=== PATIENT | male | born 1980 | race Caucasian/White ===

== ENCOUNTER → 2023-04-30 06:32 | Outpatient (REF) | payer OTHER, SELFPAY | LOC: MRI 3T 06:32 | PROVIDERS: ATTENDING PHYSICIAN Family Medicine | DX: G44.52 New daily persistent headache (NDPH) (principal) | CPT/HCPCS: 70551 ==

== ENCOUNTER 2023-06-24 14:06 | Day surgery (SDC) | payer OTHER, SELFPAY ==
[2023-06-24] VITALS (9 sets, daily range): BP systolic 102–157; BP diastolic 62–101; BMI 34.6; BMI 33.8
--- NOTE | 2023-06-24 12:25 | EDRN ---
Medina MORIN in room w/pt at this time.
[2023-06-24] MEDS: DILAUDID 1 MG IV (12:42)
--- NOTE | 2023-06-24 12:59 | EDRN ---
Pt states last at 3 bites of breakfast sandwich w/ couple of sips of water this am.
[2023-06-24 13:16] LABS: % Basophils 0.8 % (0-2); % Eosinophils 2.5 % (0-6); % Immature Granulocytes 0.3 % (0-0.5); % Lymphocytes 27.1 % (20.5-51.1); % Monocytes 7.9 % (1.7-9.3); % Neutrophils 61.4 % (42.2-75.2); Absolute Basophils 0.1 10^3/uL (0-0.2); Absolute Eosinophils 0.2 10^3/uL (0-0.7); Absolute Monocytes 0.6 10^3/uL (0.1-0.6); Absolute Neutrophils 4.4 10^3/uL (1.4-6.5); Hematocrit 48.2 % (39.0-52.0); Hemoglobin 16.5 g/dL (13.0-18.0); Mean Corp Hgb Conc. 34.2 g/dL (33.0-37.0); Mean Corpuscular Hgb 30.1 pg (27.0-31.0); Nucleated Red Blood Cells % 0 % (-); Platelet Count 199 10^3/uL (130-400); Red Blood Cell Count 5.48 10^6/uL (4.70-6.10); Red Cell Dist. Width 12.1 % (11.5-14.5); White Blood Cell Count 7.2 10^3/uL (4.8-10.8)
--- NOTE | 2023-06-24 13:21 | ED.GENMED ---
History of Present Illness
General
Chief Complaint: Anal/Rectal Problem
Source: patient
Exam Limitations: none
Time Seen by Provider: 06/24/23 12:19
Nursing documentation reviewed up to this point in time: agreed with
Travel History
Have you had any contact with someone who has COVID-19?: No
Do you have any symptoms of coronavirus? Fever > 100 degrees, chills, cough, shortness of breath, sore throat, loss of taste or smell, muscle aches, or headache?: No
History of Present Illness
History of Present Illness:
43 year old male IDDM, Factor V Leiden developed rectal pain 3 weeks ago, saw Dr. Palencia last week, told to stop Xarelto hoping to get OR time soon, told he has a fissure, soonest surgery available was 07/10.
Has been off Xarelto for 2 days, pain much worse over past 2 days states he can't take the pain anymore. Using Metamucil and had 2 diarrheal stools past 2 days. Noticed rectal 'discharge' squirts of brownish yellow material past 2 days.
Denies fever/chills, n/v/abdominal pain.
Past History
Past History
ED Past Medical History: Other (Undescended teste, surgical repair as .) and Other (DVT factor V Leiden, DVT, chronically maintained on Xarelto)
ED Past Surgical History: Cholecystectomy, Orthopedic and Urological (Undescended testicle repair as ); Negative Appendectomy or Bowel resection
Social History
Tobacco: Non-smoker
Alcohol: None
Drug: None
Personal:
Living: with family
Employment: Employed
Family History
Family History: Hypertension and Other (Gallbladder disease)
Review of Systems
Review of Systems
Allergies reviewed?: Yes
All Other Systems: ROS reviewed and negative except as documented in HPI and ROS
Constitutional: Denies fever or chills
ABD/GI: Reports other (Rectal/anal pain); Denies abdominal pain, nausea, vomiting, constipated, bloody stools or black stools
: Denies dysuria, frequency, difficulty voiding or urgency
Musculoskeletal: Reports no symptoms
Skin: Reports no symptoms
Neurological: Reports no symptoms
Phy Exam
Physical Exam
Physical Exam:
GENERAL: No acute distress. A&Ox3.
CONSTITUTIONAL: Afebrile.
RESPIRATORY: Regular respirations, nonlabored, lungs clear.
CARDIOVASCULAR: Regular rate and rhythm, no murmurs, no rubs.
GI: Soft, nontender, normal BS
Rectal: Normal-appearing external anal area, no discharge
MUSCULOSKELETAL: Moves with ease. Well perfused.
SKIN: Warm, dry, pink
PSYCH: Normal mood and affect. Well kept, interactive and appropriate
NEUROLOGIC: Awake, alert and oriented. No focal neurological deficits
Course
Orders/Labs/Results
Orders:
Orders
06/24/23 Breakfast
NPO
Allow oral meds: Yes
Allow clear liquids: No
06/24/23 12:29
HYDROmorphone [Dilaudid] 1 mg IV NOW STA
06/24/23 12:41
Complete Blood Count/With Diff Urgent
Comprehensive Metabolic Panel Urgent
06/24/23 13:18
SURGICAL CONSULT Urgent
Consulting Provider: Jean Carlos Rosas
Was physician already notified: Yes
Reason for consult: rectal pain
06/24/23 13:49
PTT Urgent
Prothrombin Time Urgent
06/24/23 13:54
Admit/Transfer Patient As Directed
Co-Sign Provider:
Level of Care: Inpatient admission
Assign to:: Medical/Surgical
Physician / Group: heather paz
Diagnosis: rectal fissure
Reason for Hospitalization: rectal fissure
Expected length of stay greater than two midnights?: Yes
ELOS- Estimated Length of Stay in days: 3
I certify the patient meets the requirements for IP care: Yes
06/24/23 13:56
Code Status As Directed
Resuscitation Status: Full Code
06/24/23 15:21
0.9% Sodium Chloride 1000 ml [Nss] 1,000 ml IV 60 mls/hr
Acetaminophen [Tylenol] 650 mg PO Q4HPRN PRN
Dextrose 50%-Water [Dextrose 50% Syringe] 12.5 grams IV [id number] PRN
Glucagon [GlucaGen] 1 mg IM PRN PRN
HYDROmorphone [Dilaudid] 1 mg IV Q4HPRN PRN
Piperacillin/Tazo 3.375 Gram [Zosyn] 3.375 gram in 50 ml IV Q6H
06/24/23 15:21
Activity As Directed
Activity Level: As Tolerated
Bedside Glucose Monitoring As Directed
Frequency: AC&HS
Comment: Change to q6h if pt on TPN, tube feeding or not eating
Pneumatic Compression Sleeves As Directed
Type: Knee high
Vital Signs As Directed
Frequency: Per unit guidelines
DX Deep Vein Thrombosis Video Routine
06/24/23 16:30
Insulin Aspart Corrective Low [Novolog Flexpen-Low Resistance] See Protocol SC Q6
06/24/23 22:00
insulin glargine [Lantus U-100 Insulin] 36 unit SC HS
06/25/23 06:00
Basic Metabolic Panel IN AM
Complete Blood Count/No Diff IN AM
Glycohemoglobin (HgbA1c) IN AM
06/25/23 08:00
Atorvastatin [Lipitor] 10 mg PO DAILY
Dapagliflozin [Farxiga] 5 mg PO DAILY
06/26/23 06:00
Basic Metabolic Panel IN AM
Complete Blood Count/No Diff IN AM
06/27/23 06:00
Basic Metabolic Panel IN AM
Complete Blood Count/No Diff IN AM
06/28/23 06:00
Basic Metabolic Panel IN AM
Complete Blood Count/No Diff IN AM
06/29/23 06:00
Basic Metabolic Panel IN AM
Complete Blood Count/No Diff IN AM
Abnormal Lab Results
06/24/23
12:41
Glucose 134 H mg/dl
(70-99)
06/24/23 12:41
06/24/23 12:41
Vital Signs
Initial and Last Documented VS:
Initial Vital Signs
Temp Pulse Resp BP Pulse Ox
97.9 F 68 16 157/101 98
06/24/23 12:12 06/24/23 12:12 06/24/23 12:12 06/24/23 12:12 06/24/23 12:12
Last Documented Vital Signs
Temp Pulse Resp BP Pulse Ox
97.9 F 74 16 119/73 96
06/24/23 15:09 06/24/23 15:09 06/24/23 15:09 06/24/23 15:09 06/24/23 15:09
MDM/Problems Addressed
Differential Diagnosis Includes:
Anal fissure, abscess
MDM/Problems Addressed:
43 year old male IDDM, Factor V Leiden developed rectal pain 3 weeks ago, saw Dr. Palencia last week, told to stop Xarelto hoping to get OR time soon, told he has a fissure, soonest surgery available was 07/10.
Has been off Xarelto for 2 days, pain much worse over past 2 days states he can't take the pain anymore. Using Metamucil and had 2 diarrheal stools past 2 days. Noticed rectal 'discharge' squirts of brownish yellow material past 2 days.
Denies fever/chills, n/v/abdominal pain.
Afebrile
Dr. Rosas, Colorectal surgery notified, requests NPO, pt to be admitted to Hospital[facility] and will go to surgery later today
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
NPO for now
Hospitalist notified of admission.
1300 p.m.
CBC, CMP normal
Chronic conditions affecting care: DM and Other
*Critical Care Note
Total Time (30-74mins, 75-104mins- exclusive of procedures): Not Applicable
ED Attending Note
-
Portions of this chart may have been created with voice recognition software.� Occasional wrong word or��sound alike� substitutions may have occurred due to the inherent limitations of voice recognition software.
Discharge Plan
Departure
Patient Disposition: Admit
Date of Disposition: 06/24/23
Time of Disposition: 13:18
Admit to: Med/Surg
Presentation/result/management discussed w/ accepting MD/DO: Hospitalist
Condition: Fair
Discharge Problem:
Acute anal fissure
Interventions
Interventions:
*Risk Screen - Suicide Last Done: 06/24/23 12:46
*General Assessment Last Done: 06/24/23 12:46
*Neglect/Abuse Screening Last Done: 06/24/23 12:46
ED- Fall Risk Assessment Last Done: 06/24/23 12:46
*ED COVID-19 Vaccine History Last Done: 06/24/23 12:13
*Nursing Disposition Last Done: 06/24/23 15:06
EC-Vayzju-Nfyixpoogh Assessment Last Done: 06/24/23 12:48
ED-Skin Assessment Last Done: 06/24/23 12:46
Discharge Date and Time
Discharge Date/Time: 06/24/23 15:06
--- NOTE | 2023-06-24 13:27 | HPS.HSE ---
Addendum entered and electronically signed by Pranav Jeffries MD 06/24/23 15:07:
I saw and examined the patient.
The DOCUMENT SCANNER or PA's note was reviewed and I agree with the note.
Comment: CVS: S1-S2 normal
Chest: CTA B/L
Abdomen: Soft, NT / Bowel sounds present, Rectal deferred to colorectal surgery
Extremities: No edema, normal pulses
FACING BASTER: Non focal exam
# Rectal pain with history of rectal fissure
Patient stopped taking Xarelto 2 days ago and pain has been really bad and getting worse
Has history of constipation.
He also has seen some pale discharge
Colorectal surgery plan to take the patient to the OR today
Restart Xarelto when okay with colorectal surgeon
# Factor V Leyden-history of DVT 2021
He has been off of Xarelto for the past 2 days anticipating surgery
Patient is aware about benefits of dose of holding Xarelto
# Hyperlipidemia-continue statin
# Diabetes-takes Farxiga
Uses Lantus 36 units at night
If patient resumes a diet we can continue with the same dose if on lower diet we need to reduce the amount of Lantus
# History of migraine-as needed Imitrex
# DVT prophylaxis-restart Xarelto when okay with surgeon
# Full code
Part of this note was created using voice recognition system. Occasional wrong word or��sound alike� substitutions may have inadvertently occurred due to the inherent limitations of voice recognition software. If noted kindly bring it to my
attention for correction.
Original Note:
Family Physician
-
Family Physician: Muna Macias
Chief Complaint
-
rectal pain
History of Present Illness
43 year old with PMH for IDDM, essential HTN, factor V Leiden, HLD, migraine presented to us with rectal pain for past three weeks. stated can't sit or stand due to pain. he stopped taking Xarelto two days ago in anticipation of surgery. today he
got the schedule for surgery in [facility] 2nd week. he could not tolerate the pain, which prompted him to come the ER. stated hot flashes. Patient denied fever, chills, chest pain, short of breath. Patient denied headache, dizziness, syncopal episode.
Patient denied abdominal pain, nausea, vomiting. Stated diarrhea from MiraLAX. He was constipated 3 weeks ago from a drug which he took for migraine. Patient denied dysuria, hematuria.
Admitting for further management
Medical History
Past Medical History
Past Medical History: Reports Other
Additional Past Medical History:
Type 2 diabetes
Essential hypertension
Factor V Leyden
DVT
Hyperlipidemia
Migraine
Past Surgical History: Reports Other
Additional Past Surgical History:
Orchiopexy
Carpal tunnel release bilateral hand
Left ankle arthroscopy
Cholecystectomy
Left ankle ligament repair
Social History
Tobacco: Former Smoker
Alcohol: Occasional
Drug: None
Family History
Family History: Not pertinent
Allergies / Home Medications
Allergies reflects when Allergies were last updated in [employer].
Home Medications with original date entered in [employer]
Allergy/Medication List:
Allergies
Allergy/AdvReac Type Severity Reaction Status Date / Time
adhesive Allergy Hives Verified 06/24/23 12:14
azithromycin [From Zithromax] Allergy Unresponsiv Verified 06/24/23 12:14
e
bee venom protein (honey bee) Allergy Swelling Verified 06/24/23 12:14
coconut Allergy Throat Verified 06/24/23 12:14
swelling
latex Allergy swelling Verified 06/24/23 12:14
and rash
pseudoephedrine AdvReac double Verified 06/24/23 12:14
vision
Home Medications
rivaroxaban 20 mg tablet (Xarelto) 20 mg PO DAILY Blood clot prevention/tx 11/09/17
atorvastatin 10 mg tablet 10 mg PO DAILY High cholesterol 08/09/20
dapagliflozin propanediol 5 mg tablet (Farxiga) 5 mg PO DAILY Diabetes 08/09/20
acetaminophen 325 mg tablet (Tylenol) 650 mg PO Q4HPRN PRN mild pain 06/24/23
ibuprofen 200 mg tablet (Advil) 400 mg PO Q8HPRN PRN mild pain 06/24/23
insulin glargine 100 unit/mL subcutaneous solution (Lantus U-100 Insulin) 36 unit SC HS 06/24/23
polyethylene glycol 3350 17 gram oral powder packet (Miralax) 17 g PO DAILY 06/24/23
semaglutide (weight loss) 0.25 mg/0.5 mL subcutaneous pen injector (Wegovy) 0.25 mg SC SA 06/24/23
sumatriptan succinate 50 mg tablet (Imitrex) 0 mg PO .COMPLEX 06/24/23
Review of Systems
-
Constitutional: Reports No Symptoms
EENT: Reports No Symptoms
Respiratory: Reports No Symptoms
Cardiac: Reports No Symptoms
Abdomen/GI: Reports Other (Rectal pain)
: Reports No Symptoms
Musculoskeletal: Reports No Symptoms
Skin: Reports No Symptoms
Neurological: Reports No Symptoms
Endocrine: Reports No Symptoms
Hematologic/Lymphatic: Reports No Symptoms
Psych: Reports No Symptoms
Physical Exam
Vital Signs
Vital Signs
Temp Pulse Resp BP Pulse Ox
97.9 F 68 16 157/101 98
06/24/23 12:12 06/24/23 12:12 06/24/23 12:12 06/24/23 12:12 06/24/23 12:12
Physical Exam
General: Well Developed, Well Nourished and No Apparent Distress
HEENT: NormoCephalic, Moist mucous membranes and Atraumatic
Respiratory: Clear
Cardiac: S1/S2 and Regular Rhythm; No Murmur or Rub
GI: Soft, Non Tender, Non Distended and Normal Bowel Sounds; No Organomegaly
Rectal: Deferred by Provider
Musculoskeletal: No Clubbing, No Cyanosis and No Edema
Skin: No Rash
Neuro: AO x 3 and Nonfocal/grossly intact
Psych: Calm
Laboratory Results
-
06/24/23 12:41
Data Reviewed
-
Lab Data: Labs Reviewed by me
Impression/Plan
-
#rectal fissure
-Maintain n.p.o.
-Gentle hydration
-IV Zosyn
-colorectal surgery consulted
#factor V Leiden
# History of DVT
-Hold Xarelto
# Hyperlipidemia
-Statin
#IDDM
-sliding scale
-daily BGM
-Sunil Wasserman 36u hs continued
# History of migraine headache
-On Imitrex
# DVT prophylaxis
-SCD
# CODE STATUS
-Full code
--- NOTE | 2023-06-24 13:31 | EDRN ---
Lachelle aguilar in performing a med rec at this time.
[2023-06-24 13:33] LABS: ALT (SGPT) 36 U/L (0-50); AST (SGOT) 28 U/L (17-59); Albumin 4.5 g/dl (3.5-5.0); Alkaline Phosphatase 80 U/L (38-126); Blood Urea Nitrogen 16 mg/dl (9-20); Calcium 9.7 mg/dl (8.4-10.2); Carbon Dioxide 25 mmol/L (22-30); Chloride 106 mmol/L (98-107); Estimated Creatinine Clearance > 125 ml/min; Glucose 134 mg/dl (70-99); Potassium 4.8 mmol/L (3.5-5.1); Sodium 135 mmol/L (135-145); Total Bilirubin 0.5 mg/dl (0.2-1.3); Total Protein 7.2 g/dl (6.3-8.2); eGFR > 60.00
--- NOTE | 2023-06-24 13:36 | CON.CRS ---
Consultation
-
Date/Time Consultation Requested: 06/24/2023, 1300
Date/Time Consultation Performed: 06/24/2023, 1400
Requesting Provider: Bre Light NP
Performing Provider: Jean Carlos Rosas MD
Reason for Consultation: Anal fissure
Medical History
-
Chief Complaint: Anal pain
History of Present Illness:
43-year-old male, known patient of Dr. Palencia, presents to the ER due to excruciating anal pain. The patient was seen in the office on 06/14/2023 as a new patient. He is complaining of anal bleeding and pain. Upon exam, the patient had spasm on
his digital rectal exam and diagnosed with a probable anal fissure. He was prescribed nifedipine and lidocaine ointment. Despite this, the pain has been unrelenting. He has been on Xarelto for DVT and also has a history of factor V Leiden
deficiency. He has held his Xarelto for the past 2 days. He was scheduled for an exam under anesthesia with Dr. Palencia on 07/11/2023. Due to the pain with now yellow/brownish discharge, the patient came to the ER. The patient states he has noted
some blood. He has been having loose stools due to starting Miralax. His WBC is 7.2. His vitals are normal. We have been consulted for further surgical opinion.
Past Medical History
Past Medical History: HTN, Hypercholesterolemia and Other (Factor V Leiden, history of DVT, obesity, type 2 diabetes)
Past Surgical History: Cholecystectomy and Other (Undescended testicle repair as infant)
Social History
Tobacco: Non-Smoker
Alcohol: None
Drug: None
Family History
Family History: Reviewed & Not Pertinent
Allergies / Home Medications
Allergy/AdvReac Type Severity Reaction Status Date / Time
adhesive Allergy Hives Verified 06/24/23 12:14
azithromycin [From Zithromax] Allergy Unresponsiv Verified 06/24/23 12:14
e
bee venom protein (honey bee) Allergy Swelling Verified 06/24/23 12:14
coconut Allergy Throat Verified 06/24/23 12:14
swelling
latex Allergy swelling Verified 06/24/23 12:14
and rash
pseudoephedrine AdvReac double Verified 06/24/23 12:14
vision
Medication Instructions Recorded Confirmed Type
rivaroxaban 20 mg tablet (Xarelto) 20 mg PO DAILY Blood clot 11/09/17 05/17/22 History
prevention/tx
atorvastatin 10 mg tablet 10 mg PO DAILY High cholesterol 08/09/20 05/17/22 History
dapagliflozin propanediol 5 mg 5 mg PO DAILY Diabetes 08/09/20 05/17/22 History
tablet (Farxiga)
insulin detemir U-100 100 unit/mL 48 units SC HS Diabetes 08/09/20 05/17/22 History
subcutaneous solution (Levemir
U-100 Insulin)
lisinopril 20 mg tablet 20 mg PO DAILY Blood pressure 08/09/20 05/17/22 History
Review of Systems
-
History Source: Patient
Abdomen/GI: Bloody Stools and Other (Anal pain)
A 10 point review of systems was completed, and was negative except as per HPI.
Physical Exam
Vital Signs
Temp 97.9 F 06/24/23 12:12
Pulse 68 06/24/23 12:12
Resp Rate 16 06/24/23 12:12
Blood pressure 157/101 06/24/23 12:12
SaO2 98 06/24/23 12:12
06/23/23 06/24/23 06/25/23
06:59 06:59 06:59
Actual Weight 119.1 kg
Body Mass Index (BMI) 34.6
Lab Results / Allergies
06/24/23 12:41
06/24/23 12:41
WBC 7.2 10^3/uL (4.8-10.8) 06/24/23 12:41
Hgb 16.5 g/dL (13.0-18.0) 06/24/23 12:41
Hct 48.2 % (39.0-52.0) 06/24/23 12:41
Plt Count 199 10^3/uL (130-400) 06/24/23 12:41
Abs Immat Gran (auto) 0.0 10^3/uL (0-0.05) 06/24/23 12:41
Neutrophils % 61.4 % (42.2-75.2) 06/24/23 12:41
Allergy/AdvReac Type Severity Reaction Status Date / Time
adhesive Allergy Hives Verified 06/24/23 12:14
azithromycin [From Zithromax] Allergy Unresponsiv Verified 06/24/23 12:14
e
bee venom protein (honey bee) Allergy Swelling Verified 06/24/23 12:14
coconut Allergy Throat Verified 06/24/23 12:14
swelling
latex Allergy swelling Verified 06/24/23 12:14
and rash
pseudoephedrine AdvReac double Verified 06/24/23 12:14
vision
Physical Exam
General: Well Developed, Well Nourished and No Apparent Distress
Rectal: Other (deferred per patient)
Skin: Warm and Dry
Neuro: AO x 3
Data Reviewed
-
Labs: Labs Reviewed by me and Discussed with Physician
Old Records: Reviewed
Assessment / Plan
-
Assessment: 53-year-old male with a history of DVT on Xarelto, and known anal fissure, presents to the ER complaining of unrelenting anal pain
Plan:
1. Given the amount of pain despite optimization with medication, we will take the patient to the operating room this afternoon for exam under anesthesia and possible sphincterotomy.
2. Remain n.p.o. for the OR.
3. Pain control.
4. Diabetes and hypertension management per hospitalist.
5. Continue to hold Xarelto.
--- NOTE | 2023-06-24 13:36 | EDRN ---
Dr. Jeffries in room w/pt at this time.
[2023-06-24 14:30] LABS: INR 0.99; PT 12.9 Sec (11.4-14.6)
[2023-06-24 14:31] LABS: APTT 29.2 Sec (23.4-35.0)
[2023-06-24] MEDS: NSS 1000 IV (15:53)
[2023-06-24] MEDS: TYLENOL 650 MG PO (15:54)
[2023-06-24] MEDS: ZOSYN 50 IV (15:54)
--- NOTE | 2023-06-24 18:40 | PTCARENOTE ---
Pt. arrived from ED to bed 337-1 at 1530. Pt. walked from stretcher to bed. Pt. oriented to room. Pt. has continuos blood glucose monitor on, no insulin given through it. Pt. oriented to unit, taken to OR at 1630.
--- NOTE | 2023-06-24 19:19 | W.IMMPOSTOP ---
Addendum entered and electronically signed by Jean Carlos Rosas MD 06/24/23 19:50:
updated via phone
Original Note:
Surgical Immed Post Op Note
-
Primary Surgeon: Jean Carlos Rosas MD
Assisting Surgeon: None
Pre-op Diagnosis: Anal fissure
Post-op Diagnosis: Posterior midline anal fissure
Procedure Performed: Lateral internal tailored sphincterotomy
Anesthesia Type: MAC with local
Specimen / Cultures: None
Estimated Blood Loss: 5 mL
Complications: None
Operative Findings: Small, partially healed posterior midline fissure, about 7 mm in length and 3 mm in width, no exposed sphincter; internal sphincter was hypertonic; performed 1.5 cm right curvilinear incision overlying the intersphincteric
groove; performed a tailored sphincterotomy, extending about 1 cm proximally from the intersphincteric groove; loosely reapproximated the incision with two 2-0 Vicryl
--- NOTE | 2023-06-24 19:28 | OR.RPT ---
Operative Report
Operative Report
DATE OF OPERATION: 06/24/2023
SURGEON: Jean Carlos Rosas MD
PREOPERATIVE DIAGNOSIS: Anal fissure
POSTOPERATIVE DIAGNOSIS: Posterior midline anal fissure
OPERATION: Right lateral internal tailored sphincterotomy, bilateral pudendal nerve block
ASSISTANTS:
1. None
ANESTHESIA: MAC w/ local
ESTIMATED BLOOD LOSS: 5 mL
FINDINGS:
1. Partially healed posterior midline fissure about 7 mm in length and 3 mm wide and hypertonic internal sphincter
2. Small internal hemorrhoids not irritated or bleeding; no evidence of perianal infection
3. Tailored the internal sphicterotomy to the length of the fissure
SPECIMENS:
1. None
DRAINS: None
COMPLICATIONS: No immediate complications.
INDICATIONS: The patient is a 43-year-old male who was seen by my partner, Dr. Palencia, in the office and was diagnosed with an anal fissure; however, the patient was unable to tolerate anoscopy so the diagnosis was presumed based on clinical story
and external exam. A trial of nifedipine with lidocaine cream was initiated, but the pain continued to be severe. The patient was booked for surgery in 2 to 3 weeks. However, the pain was not tolerable and the patient presented to the ED.
Therefore, I recommended proceeding with an exam under anesthesia and possible sphincterotomy depending on the pathology noted. The operation was discussed with the patient in detail, including the risks, benefits and alternatives. Risks described
included, but not limited to, bleeding, infection, urinary retention, incontinence to stool or flatus, recurrence of anal fissure, possibility of another pathology causing the pain and anesthetic risks. The patient understood and agreed to proceed.
PROCEDURE IN DETAIL: The patient was taken to the operating room and placed on the operating table in prone position. Sequential compression devices were placed bilaterally. Sedation was commenced without complication. Two seat belts were secured
around the legs and upper back. The buttocks were taped apart. The perineum was shaved, prepped and draped in the usual fashion. A time-out was then performed verifying the correct patient, procedure, operative site, positioning, and special
equipment.
Local anesthesia used was a mixture of 60 mL of 0.25% Marcaine without epinephrine (with epinephrine was on backorder) and 0.6 mg of dexamethasone. 40 mL was injected perianally at the beginning of the case. The anorectal exam was performed
assessing all four quadrants of the anal canal using Hill-Elizalde retractors in progressively increasing size. The patient was noted to have a partially healed posterior midline anal fissure, with rolled edges and no exposed sphincter. The
internal sphincter tone was elevated and on tension with the medium Hill-Elizalde anoscope despite an adequate perianal block. There was also noted to be small internal hemorrhoids circumferentially that were not irritated or bleeding, therefore
unlikely to be the source of pain. There was no areas of erythema or fluctuance, so no evidence of perianal infection. No other masses were noted. The most likely cause of the anal pain was this posterior midline fissure.
In the setting of hypertonic sphincter tone and anal fissure, I elected to proceed with a right lateral internal sphincterotomy. I made a 2 cm curvilinear incision along the intersphincteric groove with Bovie electrocautery in the right lateral
position. Hemostasis was achieved. I dissected between the mucosa and the internal sphincter and in the intersphincteric groove using a hemostat clamp to isolate the internal sphincter. I elected to tailor the sphincterotomy to equal the length of
the anal fissure in order to decrease the risk of fecal incontinence. Using the hemostat clamp, I isolated 1 cm of internal sphincter muscle and divided it using Bovie electrocautery. Hemostasis was achieved. The curvilinear incision was then
reapproximated with two interrupted 2-0 Vicryl stitches leaving space in between for drainage in order to decrease the risk of infection. The anal canal was irrigated and hemostasis confirmed from both the surgical site and the fissure. At the end
of the case, the remaining 20 mL of local were injected, 10mL bilaterally for a pudendal nerve block and 10mL around the surgical site.
At this point, the procedure was complete. All needle, sponge and instrument counts were correct. The patient tolerated the procedure well and was transferred to the recovery room in stable condition with gauze and tape over the anus.
DICTATED BY: Jean Carlos Rosas MD
[2023-06-24 19:32] LABS: Glucose - Point of Care 103 mg/dl (70-99)
[2023-06-24 22:08] LABS: Glucose - Point of Care 103 mg/dl (70-99)
[2023-06-24] MEDS: LANTUS 0.130000000000000004 UNITS SC (22:40)
[2023-06-25] MEDS: TYLENOL 1000 MG PO ×3 (00:24→12:27)
[2023-06-25] MEDS: TORADOL 15 MG IV ×3 (00:24→12:27)
[2023-06-25 05:48] LABS: Hematocrit 46.1 % (39.0-52.0); Mean Corp Hgb Conc. 34.7 g/dL (33.0-37.0); Mean Corpuscular Hgb 30.1 pg (27.0-31.0); Mean Corpuscular Volume 86.7 fL (80.0-94.0); Platelet Count 199 10^3/uL (130-400); Red Blood Cell Count 5.32 10^6/uL (4.70-6.10); Red Cell Dist. Width 12.2 % (11.5-14.5); White Blood Cell Count 7.9 10^3/uL (4.8-10.8)
[2023-06-25 06:03] LABS: Blood Urea Nitrogen 18 mg/dl (9-20); Calcium 9.1 mg/dl (8.4-10.2); Carbon Dioxide 23 mmol/L (22-30); Chloride 107 mmol/L (98-107); Estimated Creatinine Clearance > 125 ml/min; Glucose 139 mg/dl (70-99); Potassium 4.7 mmol/L (3.5-5.1); Sodium 135 mmol/L (135-145); eGFR > 60.00
[2023-06-25 07:22] VITALS: BP 120/72
[2023-06-25 07:33] LABS: Glucose - Point of Care 111 mg/dl (70-99)
[2023-06-25] MEDS: FARXIGA 5 MG PO (08:37)
[2023-06-25] MEDS: LIPITOR 10 MG PO (08:37)
[2023-06-25 08:43] LABS: Glycohemoglobin (HgbA1c) 8.2 % (4.0-5.6)
--- NOTE | 2023-06-25 11:46 | W.PN.CRS1 ---
Addendum entered and electronically signed by Celestine Palencia MD 06/25/23 12:40:
I saw and examined the patient.
The PA's note was reviewed and I agree with the note.
Comment:
Seen in am with PA.
Comfortable.
Vitals and labs fine.
anal area without erythema
Discharge per hospitalist.
Original Note:
Today's Communication / Plan
-
Okay for discharge from our perspective
Assessment/Plan
-
Postop day 1 sphincterotomy for anal fissure
1. Labs and vitals normal.
2. Tolerated diet.
3. Incision and wound look good, dressing removed. No skin erythema noted.
4. Pain is well-controlled.
5. Okay for discharge from our standpoint to follow-up in the office with Dr. Rosas in 4 to 6 weeks.
Subjective Data
Procedure
06/24/2023-sphincterotomy for anal fissure
Subjective Data
Date of Service: June 25, 2023
Patient states he feels much better. His pain is well-controlled. He has flatus. He is urinating without difficulty.
Objective Data
-
Vital Signs
Temp Pulse Resp BP Pulse Ox
97.6 F 76 17 120/72 94
06/25/23 07:22 06/25/23 07:22 06/25/23 07:22 06/25/23 07:22 06/25/23 07:22
Intake & Output
06/24/23 06/25/23 06/26/23
06:59 06:59 06:59
Intake Total 200 / 200 600 / 600
Output Total 426 / 426
Balance 200 / 200 174 / 174
Intake:
Oral fluids 600 / 600
IV fluids (Total) 200 / 200
Normosal 200 / 200
Output:
Urine, Voided 426 / 426
Other:
Number of approximated MODERATE 1
amounts of urine
Lab Results
06/25/23 05:14
06/25/23 05:14
Physical Exam
-
General: No Acute Distress and AOx3
Abdomen: Soft, Non Distended and Non Tender
Wound: No Signs of Infection, Dressing Changed (Removed) and No Skin Erythema
--- NOTE | 2023-06-25 11:59 | CM ---
Met with pt at bedside
Pt lives with his and children in a 2 story home
Independent, working, drives
Denies DME in home
Denies past snf/HH
Has ride at d/c
PCP - Muna Macias
Pharm - [facility]
Plan - anticipate home no needs
[2023-06-25 12:11] LABS: Glucose - Point of Care 132 mg/dl (70-99)
--- NOTE | 2023-06-25 14:55 | W.PN.HOSP.TC ---
Today's Communication/Plan
-
Discharge
Assessment / Plan
Assessment / Plan
43 y/o with anal pain
Feels much much better and he feels ready to go home
Cardiovascular system S1-S2 appreciated
Chest clear to auscultation
Abdomen soft and nontender
# Anal fissure status post sphincterotomy
Pain control with tramadol
MiraLAX
Okay to restart Xarelto tonight per discussion with colorectal surgery
Sitz bath
# Factor V Leyden-history of DVT 2021
He has been off of Xarelto for the past 2 days anticipating surgery
restart Xarelto
# Hyperlipidemia-continue statin
# Diabetes-takes Farxiga
Uses Lantus 36 units at night
Can resume the dose as he will be back on his diet tonight
# History of migraine-as needed Imitrex
# DVT prophylaxis-restart Xarelto
# Full code
D/W RN
D/W Colorectal
D/W Physician advisor.
Anticipated Discharge: Today
Subjective/Interval History
-
Date of Service: June 25, 2023
Objective Data
-
Labs:
Laboratory Results
06/25/23
05:14
WBC 7.9
Hgb 16.0
Hct 46.1
Plt Count 199
Sodium 135
Potassium 4.7
Chloride 107
Carbon Dioxide 23
BUN 18
Creatinine 0.8
Glucose 139 H
Calcium 9.1
Vital Signs:
Vital Signs
Temp Pulse Resp BP Pulse Ox
97.6 F 76 17 120/72 94
06/25/23 07:22 06/25/23 07:22 06/25/23 07:22 06/25/23 07:22 03/26/24 07:22
I&O
06/24/23 06/25/23 06/26/23
06:59 06:59 06:59
Intake Total 200 / 200 600 / 600
Output Total 426 / 426
Balance 200 / 200 174 / 174
--- NOTE | 2023-06-25 15:05 | W.DS.TRANS ---
Addendum entered and electronically signed by Pranav Jeffries MD 06/25/23 17:00:
Dictation- [id number]
Original Note:
DC Summary - [employer]
-
Discharge Instructions:
Discharge Diagnosis/Procedures Returns patient is status post enterotomy,
factor V Leyden, hyperlipidemia, diabetes,
history of migraine
Diet As tolerated
Activity No strenuous activity
Driving Restrictions No driving for 24 hours
Bathing Restrictions None
Wound Care Sitz baths twice a day, 10 minutes, warm water,
for 7 days starting tonight. Tramadol can make
you constipated.
Instructions: Anal Fissure (DC)
How to Do a Sitz Bath
Stand-Alone Forms:
Changes to Home Medications: Yes
Discharge Medications:
DC Medications w/original date entered in [facility]
rivaroxaban 20 mg tablet (Xarelto) 20 mg PO DAILY Blood clot prevention/tx 11/09/17
atorvastatin 10 mg tablet 10 mg PO DAILY High cholesterol 08/09/20
dapagliflozin propanediol 5 mg tablet (Farxiga) 5 mg PO DAILY Diabetes 08/09/20
acetaminophen 325 mg tablet (Tylenol) 650 mg PO Q4HPRN PRN mild pain 06/24/23
insulin glargine 100 unit/mL subcutaneous solution (Lantus U-100 Insulin) 36 unit SC HS diabetes 06/24/23
polyethylene glycol 3350 17 gram oral powder packet (Miralax) 17 g PO DAILY constipation 06/24/23
semaglutide (weight loss) 0.25 mg/0.5 mL subcutaneous pen injector (Wegovy) 0.25 mg SC SA diabetes 06/24/23
sumatriptan succinate 50 mg tablet (Imitrex) 0 mg PO .COMPLEX migraine 06/24/23
dibucaine 1 % rectal ointment 1 applic NV TID PRN rectal discomfort #56 grams 06/25/23
tramadol 50 mg tablet 50 mg PO Q6H PRN Pain #20 tabs 06/25/23
Home Medication Changes
new
dibucaine 1 % rectal ointment 1 applic NV TID PRN rectal discomfort #56 grams 06/25/23
tramadol 50 mg tablet 50 mg PO Q6H PRN Pain #20 tabs 06/25/23
Pending Results: No
[2023-06-25 15:16] VITALS: BP 126/77
[2023-06-25] MEDS: MIRALAX 17 GRAMS PO (15:26)
== END 2023-06-25 16:45 | disposition home or self-care (01) ==
LOC: PACU 14:06
PROVIDERS: Registered Nurse; ATTENDING PHYSICIAN Hospitalist; CONSULT PHYSICIAN Surgery; EMERGENCY PHYSICIAN Emergency Medicine; FAMILY PHYSICIAN Family Medicine
DX: K60.0 Acute anal fissure (principal); K64.8 Other hemorrhoids; D68.51 Activated protein C resistance; E11.9 Type 2 diabetes mellitus without complications; Z79.4 Long term (current) use of insulin; Z86.718 Personal history of other venous thrombosis and embolism
CPT/HCPCS: 46080; 80048; 80053; 82962; 83036; 85025; 85027; 85610; 85730; 96374; 99285

== ENCOUNTER 2023-07-01 00:30 | Observation (INO) | payer OTHER, SELFPAY ==
[2023-06-30 16:48] VITALS: BP 155/99
--- NOTE | 2023-06-30 19:35 | ED.GENMED ---
History of Present Illness
General
Chief Complaint: Post Operative Problem(s)
Source: patient
Exam Limitations: none
Time Seen by Provider: 06/30/23 19:16
Travel History
Have you had any contact with someone who has COVID-19?: No
Do you have any symptoms of coronavirus? Fever > 100 degrees, chills, cough, shortness of breath, sore throat, loss of taste or smell, muscle aches, or headache?: No
History of Present Illness
History of Present Illness:
This is a 43 year old male that comes in with c/o rectal pain. Staes that he has pain in the rectal area that goes up to his groin. States that he started with fever and bleeding yesterday. States that his temp goes up and down. States that at home
he was 100.5, States that he has had chills, nausea and has not been able to move his bowels. States that he was going but now is unable. States that he feels dizzy on and off. Denies any chest pain, SOB, vomiting, diarrhea, abd pain, headache,
urinary burning.
Past History
Past History
ED Past Medical History: Asthma, IDDM, Other (PNA, DVT, Renal calculus, Factor V leiden, ) and Other (DVT factor V Leiden, DVT, chronically maintained on Xarelto)
ED Past Surgical History: Cholecystectomy, Orthopedic (Left foot surgery, Left ankle surgery, Right carpal tunnel Left wrist/hand surery. ), Urological (Undescended testicle repair as infant) and Other (Anal fissure repair ); Negative Appendectomy
or Bowel resection
Social History
Tobacco: Former smoker
Alcohol: None
Drug: None
Personal:
Living: with family
Employment: Employed
Family History
Family History: Hypertension and Other (Gallbladder disease)
Review of Systems
Review of Systems
All Other Systems: ROS reviewed and negative except as documented in HPI and ROS
Constitutional: Reports fever and chills
EENT: Reports no symptoms
Respiratory: Reports no symptoms; Denies cough or trouble breathing
Cardiac: Reports no symptoms; Denies chest pain
ABD/GI: Reports nausea and other (Rectal pain and bleeding); Denies abdominal pain, vomiting or diarrhea
: Reports no symptoms; Denies dysuria, frequency or urgency
Musculoskeletal: Reports no symptoms
Skin: Reports no symptoms
Neurological: Reports dizzy (on and off); Denies headache
Psychiatric: Reports no symptoms
Phy Exam
General Physical Exam
General Presentation: mild distress
General age: appears stated age
General Skin: warm and dry
General Habitus: normal
General Mental: alert
General Hydration: appears well hydrated
ENT Exam
ENT Exam: TM's normal, pharynx normal and neck supple
Eye Exam
Eye Exam: EOMI
Cardiovascular Exam
Cardiovascular Exam: regular rate/rhythm, no edema, no murmur and normal peripheral pulses
Pulmonary Exam
Pulmonary Exam: lungs clear, no respiratory distress, no rales, chest non tender, no crackles, no rhonchi, no wheezing and no cough
Gastrointestinal Exam
Gastrointestinal Exam: normal bowel sounds, non tender, soft, no organomegaly, no pulsatile mass, non distended and other (Bright red blood noted in rectal area. )
Musculoskeletal Exam
Musculoskeletal Exam: full ROM and no edema
Skin Exam
Skin Exam: normal color, warm/dry, no rash and no petechia
Psychiatric Exam
Psychiatric Exam: normal mood/affect
Course
Orders/Labs/Results
Orders:
Orders
06/30/23 18:58
Cardiac Monitoring- Treatment ONCE
IV Insert/Care/Rem.- Treatment PRN
O2 Therapy [RESP] Urgent
Titrate/Wean O2 to maintain O2 sat greater than (%): 93
Special Instructions: MAINTAIN CONTINOUS O2 SATS > OR = 93%
Pulse Ox/spot Check [RESP] Urgent
Quantity: 1
Special Instructions: ON ROOM AIR
06/30/23 19:30
CT Pelvis With Iv Contrast Urgent
Comment: Fissure repair on Saturday,
Reason For Exam: Rectal pain, bleeding
0.9% Sodium Chloride 1000 ml [Nss] 1,000 ml IV BOLUS
Acetaminophen [Tylenol] 1,000 mg PO NOW STA
HYDROmorphone [Dilaudid] 1 mg IV NOW STA
Ondansetron Injectable [Zofran] 4 mg IV NOW STA
06/30/23 20:28
Type+Screen Urgent
Complete Blood Count/With Diff Urgent
Comprehensive Metabolic Panel Urgent
Lactic Acid Q4H
Comment: CANCEL 2nd LACTIC ACID IF 1st LACTIC ACID IS LESS THAN 2
PTT Urgent
Prothrombin Time Urgent
Blood Culture Q30M
DWIGTH Source: Blood/Venous
Specimen Description:
06/30/23 21:15
COVID-19 Antigen Urgent
Source: Nasal Swab
Influenza A+B Rapid Molecular Urgent
DWIGHT Source: Nasal Swab
Specimen Description:
06/30/23 21:16
Blood Culture Q30M
DWIGHT Source: Blood/Venous
Specimen Description:
06/30/23 21:36
HYDROmorphone [Dilaudid] 1 mg .ROUTE .STK-MED ONE
Ondansetron Injectable [Zofran] 4 mg .ROUTE .STK-MED ONE
06/30/23 21:37
Acetaminophen [Tylenol] 1,000 mg .ROUTE .STK-MED ONE
Abnormal Lab Results
06/30/23
20:28
Absolute Neuts (auto) 7.7 H 10^3/uL
(1.4-6.5)
Absolute Monos (auto) 0.7 H 10^3/uL
(0.1-0.6)
Lymphocytes % 19.2 L %
(20.5-51.1)
PT 15.2 H Sec
(11.4-14.6)
Sodium 134 L mmol/L
(135-145)
Glucose 117 H mg/dl
(70-99)
06/30/23 20:28
06/30/23 20:28
Glucose nonfasting. Lactic acid normal at 1.4, PT 15.2 with INR 1.22, PTT 30.6, COVID and influenza negative.
Vital Signs
Initial and Last Documented VS:
Initial Vital Signs
Temp Pulse Resp BP Pulse Ox
97.7 F 102 22 155/99 96
06/30/23 16:48 06/30/23 16:48 06/30/23 16:48 06/30/23 16:48 06/30/23 16:48
Last Documented Vital Signs
Temp Pulse Resp BP Pulse Ox
99.5 F 108 28 133/72 96
06/30/23 21:18 06/30/23 22:40 06/30/23 22:40 06/30/23 22:40 06/30/23 16:48
MDM/Problems Addressed
Differential Diagnosis Includes:
Post surgical abscess, Tear in fissure repair,
Chronic conditions affecting care:
This is a 43 year old male that comes in with c/o rectal pain and bleeding. States that he started yesterday with fever and rectal pain. States that he has bright red blood from his rectum that is just oozing out. States that his temp has been up
and down
Will get labs. CT pelvis and medicate for pain.
Back into see patient. Explained that his blood work is normal along with his Lactic acid and his CT is negative for abscess but there is a fullness in the rectal area. Discussed with Dr. Angulo and will have the House ENGINEERING TECH admit patient to Colorectal
service. Will have patient stay on a clear liquid diet, Hold his Xarelto and Dilaudid IV PRN. They will see patient in the morning.
Into see patient and explained that he would be admitted and seen by Colorectal tomorrow.
Chronic conditions affecting care: DM
Acute Exacerbation and/or Progression of Chronic Illness:
Post surgical complication
*Radiology
Radiology exam reviewed: radiology read reviewed (CT- Fullness involving the perianal soft tissues in this patient with histor of recent surgery for anal fissure repair. There is no evidence for abscess. )
*Pulse Oximetry
Patient hypoxic: no
*EKG
Interpreted by ED Provider?: NA
Rate: EKG- N/A
*Qc Scientist Interpretation
Rate: Qc Scientist- N/A
*Critical Care Note
Total Time (30-74mins, 75-104mins- exclusive of procedures): Not Applicable
ED Attending Note
-
Portions of this chart may have been created with voice recognition software.� Occasional wrong word or��sound alike� substitutions may have occurred due to the inherent limitations of voice recognition software.
Discharge Plan
Departure
Patient Disposition: Admit
Date of Disposition: 06/30/23
Time of Disposition: 23:23
Admit to: Med/Surg
Presentation/result/management discussed w/ accepting MD/DO: Dr. Angulo
Patient with high blood pressure during this ER visit?: Yes
Condition: Good
Covid-19: Negative COVID-19
Discharge Problem:
Postop rectal pain, Bright red rectal bleeding
Prescriptions:
No Action
Xarelto 20 MG tablet
20 mg PO DAILY
atorvastatin 10 MG tablet
10 mg PO DAILY
dapagliflozin propanediol [Farxiga] 5 MG tablet
5 mg PO DAILY
insulin glargine [Lantus U-100 Insulin] 100 unit/mL Solution
36 unit SC HS
polyethylene glycol 3350 [Miralax] 17 gram Powder In Packet
17 g PO DAILY
dibucaine 1 % ointment
1 applic [place] TID PRN (Reason: rectal discomfort) Qty: 56 0RF
tramadol 50 mg tablet
50 mg PO Q6H PRN (Reason: Pain) Qty: 20 0RF
Wegovy 0.5 mg/0.5 mL Pen Injector
0.5 mg SC SA
Referrals:
Muna Macias MD [Family Provider] -
Interventions
Interventions:
*Risk Screen - Suicide Last Done: 06/30/23 16:48
*General Assessment Last Done: 06/30/23 16:48
*Neglect/Abuse Screening Last Done: 06/30/23 16:48
ED- Fall Risk Assessment Last Done: 06/30/23 21:20
*ED COVID-19 Vaccine History Last Done: 06/30/23 21:01
ED-Skin Assessment Last Done: 06/30/23 21:20
Discharge Date and Time
Print Language: DANISH
[2023-06-30] MEDS: NSS 1000 IV (20:17)
[2023-06-30 20:39] LABS: % Basophils 0.5 % (0-2); % Eosinophils 1.1 % (0-6); % Immature Granulocytes 0.3 % (0-0.5); % Lymphocytes 19.2 % (20.5-51.1); % Monocytes 6.9 % (1.7-9.3); Absolute Basophils 0.1 10^3/uL (0-0.2); Absolute Eosinophils 0.1 10^3/uL (0-0.7); Absolute Monocytes 0.7 10^3/uL (0.1-0.6); Absolute Neutrophils 7.7 10^3/uL (1.4-6.5); Mean Corp Hgb Conc. 35.4 g/dL (33.0-37.0); Mean Corpuscular Hgb 30.6 pg (27.0-31.0); Mean Corpuscular Volume 86.3 fL (80.0-94.0); Mean Platelet Volume 8.9 fL (7.4-10.4); Nucleated Red Blood Cells % 0 % (-); Platelet Count 202 10^3/uL (130-400); Red Blood Cell Count 5.56 10^6/uL (4.70-6.10); Red Cell Dist. Width 12.2 % (11.5-14.5); White Blood Cell Count 10.6 10^3/uL (4.8-10.8)
[2023-06-30 20:47] LABS: Lactic Acid 1.4 mmol/L (0.7-2.0)
[2023-06-30 20:51] LABS: ALT (SGPT) 37 U/L (0-50); AST (SGOT) 25 U/L (17-59); Albumin 4.5 g/dl (3.5-5.0); Alkaline Phosphatase 85 U/L (38-126); Blood Urea Nitrogen 19 mg/dl (9-20); Calcium 9.5 mg/dl (8.4-10.2); Carbon Dioxide 27 mmol/L (22-30); Chloride 100 mmol/L (98-107); Glucose 117 mg/dl (70-99); Potassium 4.5 mmol/L (3.5-5.1); Sodium 134 mmol/L (135-145); Total Bilirubin 0.7 mg/dl (0.2-1.3); Total Protein 7.5 g/dl (6.3-8.2); eGFR > 60.00
[2023-06-30 20:52] LABS: APTT 30.6 Sec (23.4-35.0); INR 1.22; PT 15.2 Sec (11.4-14.6)
[2023-06-30 21:03] VITALS: BMI 32.3
[2023-06-30 21:18] VITALS: BP 126/76
[2023-06-30 21:41] LABS: COVID-19 Antigen Negative (Negative)
[2023-06-30] MEDS: ZOFRAN 4 MG IV (21:41)
[2023-06-30] MEDS: TYLENOL 1000 MG PO (21:41)
[2023-06-30] MEDS: DILAUDID 1 MG IV ×2 (21:44→23:40)
[2023-06-30 21:53] VITALS: BP 134/75
[2023-06-30 22:40] VITALS: BP 133/72
[2023-06-30 23:39] VITALS: BP 98/69
[2023-07-01] VITALS (9 sets, daily range): BP systolic 14–146; BP diastolic 60–98; BMI 33.8
--- NOTE | 2023-07-01 00:38 | HPS.HSE ---
Family Physician
-
Family Physician: Muna Macias
Chief Complaint
-
rectal pain, bleeding and temp
History of Present Illness
This is a 43 year old male hx of factor V, DVT, diabetes, migraines and HLD that comes in with c/o rectal pain. Pt was discharged 06/25/23 s/p sphinterotomy by Dr Rosas for anal fissure. States that pain starts in the rectal area and goes up to his
groin. Pt states he felt good on day of discharge then by afternoon of same day he felt 'crappy.' States that he started with fever (100.5) and bleeding yesterday. States that his temp goes up and down. States that at home he was 100.5, States that
he has had chills, nausea. PT states he has moved his bowels since surgery. Taking miralax daily. Had BM while in ED and he states saw blood mixed with BM. States that he feels dizzy on and off. Denies any chest pain, SOB, vomiting, diarrhea, abd
pain, headache, urinary burning. Last dose of xarelto thursday 06/[address]: IMPRESSION: Fullness involving the perianal soft tissues in this patient with history of recent surgery for anal fissure repair. There is no evidence for abscess.
06/24/23 Operative Findings: Small, partially healed posterior midline fissure, about 7 mm in length and 3 mm in width, no exposed sphincter; internal sphincter was hypertonic; performed 1.5 cm right curvilinear incision overlying the
intersphincteric groove; performed a tailored sphincterotomy, extending about 1 cm proximally from the intersphincteric groove; loosely reapproximated the incision with two 2-0 Vicryl
Medical History
Past Medical History
Past Medical History: Reports Hypercholesterolemia, NIDDM and Other
Additional Past Medical History:
Type 2 diabetes
Essential hypertension
Factor V Leyden
DVT
Hyperlipidemia
Migraine
Past Surgical History: Reports Other
Additional Past Surgical History:
Orchiopexy
Carpal tunnel release bilateral hand
Left ankle arthroscopy
Cholecystectomy
Left ankle ligament repair
Social History
Tobacco: Former Smoker
Alcohol: Occasional
Drug: None
Personal:
Living: With Family
Employment: Employed
Family History
Family History: Not pertinent
Allergies / Home Medications
Allergies reflects when Allergies were last updated in [facility].
Home Medications with original date entered in [facility]
Allergy/Medication List:
Allergies
Allergy/AdvReac Type Severity Reaction Status Date / Time
adhesive Allergy Hives Verified 06/24/23 12:14
azithromycin [From Zithromax] Allergy Unresponsiv Verified 06/24/23 12:14
e
bee venom protein (honey bee) Allergy Swelling Verified 06/24/23 12:14
coconut Allergy Throat Verified 06/24/23 12:14
swelling
latex Allergy swelling Verified 06/24/23 12:14
and rash
pseudoephedrine AdvReac double Verified 06/24/23 12:14
vision
Home Medications
rivaroxaban 20 mg tablet (Xarelto) 20 mg PO DAILY Blood clot prevention/tx 11/09/17
atorvastatin 10 mg tablet 10 mg PO DAILY High cholesterol 08/09/20
dapagliflozin propanediol 5 mg tablet (Farxiga) 5 mg PO DAILY Diabetes 08/09/20
acetaminophen 325 mg tablet (Tylenol) 650 mg PO Q4HPRN PRN mild pain 06/24/23
ibuprofen 200 mg tablet (Advil) 400 mg PO Q8HPRN PRN mild pain 06/24/23
insulin glargine 100 unit/mL subcutaneous solution (Lantus U-100 Insulin) 36 unit SC HS 06/24/23
polyethylene glycol 3350 17 gram oral powder packet (Miralax) 17 g PO DAILY 06/24/23
semaglutide (weight loss) 0.25 mg/0.5 mL subcutaneous pen injector (Paigevy) 0.25 mg SC SA 06/24/23
sumatriptan succinate 50 mg tablet (Imitrex) 0 mg PO .COMPLEX 06/24/23
Review of Systems
-
History Source: Patient
A 12 point ROS was completed and negative except as noted: Yes
Constitutional: Reports Fever (100.5)
EENT: Reports No Symptoms
Respiratory: Reports No Symptoms
Cardiac: Reports No Symptoms
Abdomen/GI: Reports Nausea, Vomiting, Bloody Stools and Pain (rectal pain)
: Reports No Symptoms
Musculoskeletal: Reports No Symptoms
Skin: Reports No Symptoms
Neurological: Reports Dizzy
Endocrine: Reports No Symptoms
Hematologic/Lymphatic: Reports No Symptoms
Psych: Reports No Symptoms
Physical Exam
Vital Signs
Vital Signs
Temp Pulse Resp BP Pulse Ox
98.4 F 89 14 98/69 96
06/30/23 23:39 06/30/23 23:39 06/30/23 23:39 06/30/23 23:39 06/30/23 16:48
Physical Exam
General: Well Developed, Well Nourished and Appears in Distress (due to rectal pain)
HEENT: NormoCephalic, Anicteric and Moist mucous membranes
Respiratory: Clear and Non Labored Respirations
Cardiac: S1/S2 and Regular Rhythm
Breast: Deferred by me
GI: Soft, Non Tender, Non Distended and Normal Bowel Sounds
Rectal: Deferred by Provider (dressing in place on buttock and 4x4 to rectal area. No blood noted)
Genito-urinary: Deferred by me
Musculoskeletal: No Clubbing and No Cyanosis
Skin: Warm and Dry
Neuro: Awake, Alert, Oriented, AO x 3 and No Motor Deficits
Psych: Calm
Laboratory Results
-
06/30/23 20:28
06/30/23 20:28
Laboratory Results
PT 15.2 Sec (11.4-14.6) H 06/30/23 20:28
INR 1.22 06/30/23 20:28
APTT 30.6 Sec (23.4-35.0) 06/30/23 20:28
Lactic Acid Cancelled 06/30/23 23:45
Total Bilirubin 0.7 mg/dl (0.2-1.3) 06/30/23 20:28
AST 25 U/L (17-59) 06/30/23 20:28
ALT 37 U/L (0-50) 06/30/23 20:28
Alkaline Phosphatase 85 U/L (38-126) 06/30/23 20:28
Data Reviewed
-
CT Scan: Report Reviewed by me and Discussed with Physician
Lab Data: Labs Reviewed by me and Discussed with Physician
Impression/Plan
-
IMPRESSION:
rectal pain and bleeding s/p sphinterotomy 06.24.23
PLAN:
Admit to service of Dr Angulo
Med surg obs
#Rectal pain/bleeding s/p sphincterotomy 06/24/23
-likely exacerbated by xarelto (last dose 06/30/23)
-Pelvic CT: Fullness involving the perianal soft tissues in this patient with history of recent surgery for anal fissure repair. There is no evidence for abscess.
-Maintain clear liquids diet for now
-Gentle hydration
-IV Zosyn empirically (reported temps, increased neutrophils despite normal wbc)- low threshold to DC if blood culture neg
-Repeat CBC, BMP in am
-Pain control with dilaudid iv
#factor V Leiden
# History of DVT
-Hold Xarelto (last dose 06/30/23)
-SCDs
# Hyperlipidemia
-Statin
#IDDM
-sliding scale
-Low SSI
-Farxiga, Lantus 36u hs continued for 07/01/23pm
-current BG 117 per pt dexcom and will be only on clear diet--will give lantus 20u now, as appetite poor
# History of migraine headache
-On Imitrex
DVT prophylaxis
-SCD
CODE STATUS: Full code
[2023-07-01 01:36] LABS: Glucose - Point of Care 94 mg/dl (70-99)
[2023-07-01] MEDS: NSS 1000 IV ×2 (02:00→12:46)
[2023-07-01] MEDS: DILAUDID 1 MG IV ×5 (02:00→14:07)
[2023-07-01] MEDS: LANTUS 0.200000000000000011 UNITS SC (02:00)
[2023-07-01] MEDS: ZOSYN 50 IV ×4 (02:01→21:45)
--- NOTE | 2023-07-01 02:10 | PTCARENOTE ---
Pt. received to 2S from ER via stretcher around 0140 and able to walk to bed with slow, steady gait. Pt. A&Ox3, visibly uncomfortable and c/o 8/10 rectal/low abdominal pain, even and unlabored breathing on RA, and VSS. Plan of care discussed with
patient, questions and concerns addressed at time of assessment, bed locked and in lowest position, side rails in place, and call light within reach. Will monitor.
[2023-07-01] MEDS: ZOFRAN 4 MG IV ×2 (04:46→14:07)
[2023-07-01 06:37] LABS: % Basophils 0.8 % (0-2); % Eosinophils 2.1 % (0-6); % Immature Granulocytes 0.5 % (0-0.5); % Lymphocytes 26.9 % (20.5-51.1); % Monocytes 10.3 % (1.7-9.3); % Neutrophils 59.4 % (42.2-75.2); Absolute Basophils 0.1 10^3/uL (0-0.2); Absolute Eosinophils 0.2 10^3/uL (0-0.7); Absolute Immature Granulocytes 0.1 10^3/uL (0-0.05); Absolute Lymphocytes 2.7 10^3/uL (1.2-3.4); Hematocrit 44.9 % (39.0-52.0); Hemoglobin 15.6 g/dL (13.0-18.0); Mean Corp Hgb Conc. 34.7 g/dL (33.0-37.0); Mean Corpuscular Hgb 30.6 pg (27.0-31.0); Mean Corpuscular Volume 88.2 fL (80.0-94.0); Mean Platelet Volume 8.9 fL (7.4-10.4); Nucleated Red Blood Cells % 0 % (-); Platelet Count 190 10^3/uL (130-400); Red Blood Cell Count 5.09 10^6/uL (4.70-6.10); Red Cell Dist. Width 12.2 % (11.5-14.5); White Blood Cell Count 10.1 10^3/uL (4.8-10.8)
[2023-07-01 07:03] LABS: Blood Urea Nitrogen 19 mg/dl (9-20); Calcium 8.8 mg/dl (8.4-10.2); Carbon Dioxide 27 mmol/L (22-30); Chloride 99 mmol/L (98-107); Estimated Creatinine Clearance > 125 ml/min; Glucose 90 mg/dl (70-99); Potassium 4.2 mmol/L (3.5-5.1); Sodium 136 mmol/L (135-145); eGFR > 60.00
[2023-07-01 07:17] LABS: Glucose - Point of Care 112 mg/dl (70-99)
[2023-07-01] MEDS: MIRALAX 17 GRAMS PO (08:06)
[2023-07-01] MEDS: LIPITOR 10 MG PO (08:06)
[2023-07-01] MEDS: FARXIGA 5 MG PO (08:07)
--- NOTE | 2023-07-01 10:01 | CM ---
Patient seen bedside.
IA completed.
patient lives with spouse and 3 kids in a 2 story home.
Independent prior to admission.
Patient drives.
Patient has had VN in the past.
Observation form reviewed and signed.
PCP: Dr Macias
Pharmacy: [facility]
Plan: home no needs anticiapted.
[2023-07-01 11:22] LABS: Glucose - Point of Care 86 mg/dl (70-99)
--- NOTE | 2023-07-01 12:08 | CON.HOSP ---
Family Physician
-
Family Physician: Muna Macias
Chief Complaint
-
Rectal pain
History of Present Illness
43-year-old male who is here with a rectal fissure had surgery done and was discharged. Patient states that for the next couple of days he felt okay but the pain started coming back he also had fever over the weekend. He also had rectal bleeding.
He took Xarelto morning of 06/30/2023. Fever was 100.5. Patient is admitted and we were consulted for diabetes management.
Medical History
Past Medical History
Past Medical History: Reports Other
Additional Past Medical History:
Chronic back pain and neck pain, history of DVT, factor V Leyden, nephrolithiasis, diabetes
Past Surgical History: Reports Other
Additional Past Surgical History:
Left ankle surgery, undescended testicle, carpal tunnel release on the right wrist, left wrist left hand surgery, cholecystectomy, left ankle angioplasty, anal fissure repair
Social History
Tobacco: Former Smoker
Alcohol: None
Drug: None
Personal:
Living: With Family
Employment: Employed
Allergies / Home Medications
Allergies reflects when Allergies were last updated in [employer].
Home Medications with original date entered in [employer]
Allergy/Medication List:
Allergies
Allergy/AdvReac Type Severity Reaction Status Date / Time
adhesive Allergy Hives Verified 06/30/23 16:48
azithromycin [From Zithromax] Allergy Unresponsiv Verified 06/30/23 16:48
e
bee venom protein (honey bee) Allergy Swelling Verified 06/30/23 16:48
coconut Allergy Throat Verified 06/30/23 16:48
swelling
latex Allergy swelling Verified 06/30/23 16:48
and rash
pseudoephedrine AdvReac double Verified 06/30/23 16:48
vision
Home Medications
rivaroxaban 20 mg tablet (Xarelto) 20 mg PO DAILY Blood clot prevention/tx 11/09/17
atorvastatin 10 mg tablet 10 mg PO DAILY High cholesterol 08/09/20
dapagliflozin propanediol 5 mg tablet (Farxiga) 5 mg PO DAILY Diabetes 08/09/20
insulin glargine 100 unit/mL subcutaneous solution (Lantus U-100 Insulin) 36 unit SC HS diabetes 06/24/23
polyethylene glycol 3350 17 gram oral powder packet (Miralax) 17 g PO DAILY constipation 06/24/23
dibucaine 1 % rectal ointment 1 applic SC TID PRN rectal discomfort #56 grams 06/25/23
tramadol 50 mg tablet 50 mg PO Q6H PRN Pain #20 tabs 06/25/23
semaglutide (weight loss) 0.5 mg/0.5 mL subcutaneous pen injector (Wegovy) 0.5 mg SC SA 06/30/23
Review of Systems
-
A 12 point Review of Systems was completed except as noted: Yes
Constitutional: Reports Fever
Respiratory: Denies Trouble Breathing
Cardiac: Denies Chest Pain
Abdomen/GI: Reports Bloody Stools and Other (Rectal plain); Denies Abdominal Pain
Physical Exam
Vital Signs
Vital Signs
Temp Pulse Resp BP Pulse Ox
98.2 F 84 18 109/69 96
07/01/23 07:48 07/01/23 07:48 07/01/23 07:48 07/01/23 07:48 07/01/23 07:48
Physical Exam
General: Pain
Respiratory: Clear
Cardiac: S1/S2 and Regular Rhythm
GI: Soft, Non Tender and Normal Bowel Sounds
Neuro: Nonfocal/Grossly Intact
Psych: Intact Judgement
Laboratory Results
-
Laboratory Results
07/01/23 04:59
07/01/23 04:59
PT 15.2 Sec (11.4-14.6) H 06/30/23 20:28
INR 1.22 06/30/23 20:28
APTT 30.6 Sec (23.4-35.0) 06/30/23 20:28
Lactic Acid Cancelled 06/30/23 23:45
Total Bilirubin 0.7 mg/dl (0.2-1.3) 06/30/23 20:28
AST 25 U/L (17-59) 06/30/23 20:28
ALT 37 U/L (0-50) 06/30/23 20:28
Alkaline Phosphatase 85 U/L (38-126) 06/30/23 20:28
Data Reviewed
-
CT Scan: Report Reviewed by Me (CT scan of the abdomen and pelvis-fullness involving perianal soft tissues in the patient with history of recent surgery of the anal fissure repair no evidence of abscess.)
Impression / Plan
-
IMPRESSIONPLAN:
# Anal fissure status post sphincterotomy 06/24/23
Readmitted with pain, rectal bleeding and fever
Started on Zosyn
Patient for OR today to explore to see if there is any infection/abscess
Last dose of Xarelto was 06/30/2023
Expected bleeding
Pain control
# Factor V Leyden-history of DVT 2021
Hold Xarelto until cleared by colorectal surgery
# Hyperlipidemia-continue statin
# Diabetes-takes Farxiga ,Uses Lantus 36 units at night as outpatient
Hemoglobin A1c 8.2
Got 20 units of Lantus last night
I would hold Farxiga while n.p.o.(unfortunately got a dose already this morning)
Watch sugars and BMP
# History of migraine-as needed Imitrex
# Obesity-BMI criteria
# DVT prophylaxis-SCDs. Hold Xarelto in anticipation for surgery
# Full code
Discussed with nursing
Discussed with at bedside
Thank you for the consultation. We will follow.
--- NOTE | 2023-07-01 12:10 | W.PN.CRS1 ---
Today's Communication / Plan
-
N.p.o. for OR later today
Assessment/Plan
-
43-year-old male with recent sphincterotomy due to anal fissure now presents with anal pain and bleeding
1. Given the amount of pain, will take to the operating room today for exam under anesthesia.
2. Remain n.p.o. now.
3. Continue to hold Xarelto. Last dose was yesterday morning and he had had 3 full days of Xarelto prior to that.
4. Continue IV Zosyn.
Subjective Data
Subjective Data
Date of Service: July 01, 2023
Patient states he is doing a lot of pain. The pain is constant and is worse when having a bowel movement. He states he had a fever at home and has been bleeding for the past few days.
Objective Data
-
Vital Signs
Temp Pulse Resp BP Pulse Ox
98.2 F 84 18 109/69 96
07/01/23 07:48 07/01/23 07:48 07/01/23 07:48 07/01/23 07:48 07/01/23 07:48
Intake & Output
06/30/23 07/01/23 07/02/23
06:59 06:59 06:59
Intake Total 120 / 120
Balance 120 / 120
Intake:
Oral fluids 120 / 120
IV fluids (Total) 0 / 0
IV piggybacks 0 / 0
Lab Results
07/01/23 04:59
07/01/23 04:59
Physical Exam
-
General: No Acute Distress and AOx3
Abdomen: Soft, Non Distended and Non Tender
Rectal: Other (Hard to examine the patient given pain, appears to be fluctuance all over the anal area with some mild bleeding noted.)
[2023-07-01 16:23] LABS: Glucose - Point of Care 74 mg/dl (70-99)
--- NOTE | 2023-07-01 17:30 | W.IMMPOSTOP ---
Surgical Immed Post Op Note
-
Primary Surgeon: Jean Carlos Rosas MD
Assisting Surgeon: Clyde Ledesma MD
Pre-op Diagnosis: Anal pain
Post-op Diagnosis: Left anterior intersphincteric perianal abscess
Procedure Performed: Exam under anesthesia, incision and drainage of left anterior intersphincteric perianal abscess, fistulotomy
Anesthesia Type: MAC with local
Specimen / Cultures: None
Estimated Blood Loss: 5 mL
Complications: None
Operative Findings: Previous right-sided intersphincteric groove clean without evidence of infection; posterior midline fissure healing without evidence of infection; palpable fluctuance in the left anterior position at the level of the anal verge
with visible expression of purulence at the dentate line; made 5 mm elliptical incision over fluctuance; probed with hemostat with expression of 5 mL purulent material; using probe, identified fistula to the dentate line and a radial trajectory;
probed and identified a intersphincteric fistula with about 1 cm of internal sphincter; performed fistulotomy
[2023-07-01 17:34] LABS: Glucose - Point of Care 78 mg/dl (70-99)
--- NOTE | 2023-07-01 17:35 | OR.RPT ---
Operative Report
Operative Report
DATE OF OPERATION: 07/01/2023
SURGEON: Jean Carlos Rosas MD
PREOPERATIVE DIAGNOSIS: Anal pain
POSTOPERATIVE DIAGNOSIS: Left anterior intersphincteric perianal abscess
OPERATION: Exam under anesthesia, incision and drainage of intersphincteric abscess, fistulotomy of intersphincteric fistula
ASSISTANTS:
1. Clyde Ledesma MD
ANESTHESIA: MAC w/ local
ESTIMATED BLOOD LOSS: 5 mL
FINDINGS:
1. Prior right lateral sphincterotomy incision clean without evidence of purulence or fluctuance
2. Posterior midline fissure about 7 mm in length and 5 mm wide, clean base without evidence of purulence or fluctuance
3. Left anterior fluctuance noted at the level of the anal verge; incised and drained about 5 mL of pus; identified radially�directed fistula to the dentate line with less than 1 cm of internal sphincter; performed fistulotomy
SPECIMENS:
1. None
DRAINS: None
COMPLICATIONS: None
INDICATIONS: The patient is a 43-year-old male who had refractory pain due to a posterior midline fissure and underwent a right lateral internal sphincterotomy on 06/24/2023. He was discharged the following day and improved. However, he started
developing anal pain 3 days ago associated with a low-grade fever yesterday. He presented to the [place] ED and was found to have perianal fullness on CT pelvis. He would not tolerate a bedside exam due to severe pain. Therefore, the patient
was recommended to have surgery. The operation was discussed with the patient in detail, including the risks, benefits and alternatives. Risks described included, but not limited to, bleeding, infection, damage to nearby structures such as the anal
sphincter, fecal incontinence, recurrence, urinary retention, and anesthetic risks. The patient understood and agreed to proceed. The consent was signed and placed in the chart.
PROCEDURE IN DETAIL: The patient was taken to the operating room and placed on the operating table in prone position. Sequential compression devices were placed bilaterally. Sedation was commenced without complication. Two seat belts were secured
around the legs and upper back. The buttocks were taped apart. The perineum was shaved, prepped and draped in the usual fashion. A time-out was then performed verifying the correct patient, procedure, operative site, positioning, and special
equipment.
Local anesthesia used was a mixture of 60 mL of 0.25% Marcaine without epinephrine (with epinephrine was on backorder) and 0.6 mg of dexamethasone. 40 mL was injected perianally at the beginning of the case. The anorectal exam was performed
assessing all four quadrants of the anal canal using Hill-Elizalde retractors in progressively increasing size. The posterior midline fissure was clean and stable from the previous EUA 1 week ago, about 7 mm in length and 5 mm wide. The base was
healthy without fluctuance or purulent drainage. The surgical incision in the right lateral position slightly open in the midportion of the incision, but the previously-placed vicryls were intact and there was no fluctuance or purulent drainage.
There was a small, about 1 cm, bulge in the left anterior position at the level of the anal verge. Palpating this bulge expressed purulent drainage from the dentate line directly radially from the site.
It was clear that the pain was related to this perianal abscess. I made a small elliptical incision overlying the fluctuance, about 5 mm in diameter. The fluctuance was probed with hemostat clamp and an immediate expression of 5 mL of pus was
encountered. Using a fistula probe, the cavity was probed. An internal opening directed radially was noted at the level of the dentate line. The fistula involved the internal sphincter only and was a less than 1 cm in length. Therefore, a
fistulotomy using electrocautery was performed to encourage drainage of this intersphincteric abscess. Hemostasis was achieved. The abscess cavity was irrigated copiously with saline. A corner of 4X4 gauze was tucked into the abscess cavity. The
remainder of the anal canal was assessed and hemostasis was assured. The remaining 20 mL of local were injected. 5 mL was injected bilaterally for a pudendal nerve block. 10 mL was injected around the surgical site and perianally.
At this point, the procedure was complete. All needle, sponge and instrument counts were correct. The patient tolerated the procedure well and was transferred to the recovery room in stable condition with gauze dressing in place secured with silk
tape.
Of note, Clyde Ledesma MD, learning support assistant, was necessary during this procedure for traction, countertraction, and exploratory purposes. I was present for the entire duration of the case.
DICTATED BY: Jean Carlos Rosas MD
[2023-07-01] MEDS: DILAUDID 0.5 MG IV ×2 (17:44→17:53)
[2023-07-01] MEDS: TYLENOL 1000 MG PO ×2 (18:32→23:28)
[2023-07-01] MEDS: TORADOL 15 MG IV ×2 (18:32→23:28)
--- NOTE | 2023-07-01 19:31 | PTCARENOTE ---
Received patient from PACU via bed around 1814 in stable condition. Dressing to rectum intact. Call whatley in reach.
[2023-07-01 21:23] LABS: Glucose - Point of Care 161 mg/dl (70-99)
[2023-07-01] MEDS: COLACE 100 MG PO (21:49)
[2023-07-01] MEDS: LANTUS 0.359999999999999987 UNITS SC (21:49)
[2023-07-01] MEDS: SENOKOT 8.59999999999999964 MG PO (21:49)
[2023-07-02] MEDS: ZOSYN 50 IV ×2 (02:03→08:46)
[2023-07-02] MEDS: NSS 1000 IV (02:05)
[2023-07-02 03:36] VITALS: BP 127/78
[2023-07-02] MEDS: TYLENOL 1000 MG PO (05:33)
[2023-07-02] MEDS: TORADOL 15 MG IV (05:34)
[2023-07-02 05:49] LABS: Glucose - Point of Care 110 mg/dl (70-99)
[2023-07-02 07:42] LABS: Glucose - Point of Care 140 mg/dl (70-99)
[2023-07-02 08:01] VITALS: BP 121/65
[2023-07-02] MEDS: SENOKOT 8.59999999999999964 MG PO (08:47)
[2023-07-02] MEDS: COLACE 100 MG PO (08:47)
[2023-07-02] MEDS: MIRALAX 17 GRAMS PO (08:47)
[2023-07-02] MEDS: LIPITOR 10 MG PO (08:47)
--- NOTE | 2023-07-02 09:14 | W.PN.CRS1 ---
Today's Communication / Plan
-
Discharge
Restart Xarelto
Continue antibiotics.
Assessment/Plan
-
POD#1 Exam under anesthesia, incision and drainage of left anterior intersphincteric perianal abscess, fistulotomy
1. Vital signs are normal.
2. Tolerating diet.
3. Restart Xarelto today.
4. Sitz bath twice a day starting today for 1 week.
5. Stool softeners as needed while using narcotics.
6. Okay for discharge today. All discharge instructions discussed with patient. Patient in agreement. Follow-up in the office with Dr. Rosas in 4 to 6 weeks.
Subjective Data
Procedure
07/01/2023- Exam under anesthesia, incision and drainage of left anterior intersphincteric perianal abscess, fistulotomy
Subjective Data
Date of Service: July 02, 2023
Patient states he feels much improved. His pain is a lot less. He wants to go home.
Objective Data
-
Vital Signs
Temp Pulse Resp BP Pulse Ox
98.2 F 71 16 121/65 96
07/02/23 08:01 07/02/23 08:01 07/02/23 08:01 07/02/23 08:01 07/02/23 08:01
Intake & Output
07/01/23 07/02/23 07/03/23
06:59 06:59 06:59
Intake Total 120 / 120 2780 / 2780
Balance 120 / 120 2780 / 2780
Intake:
Oral fluids 120 / 120 480 / 480
IV fluids (Total) 0 / 0 2100 / 2100
IV piggybacks 0 / 0 200 / 200
Other:
Number of approximated MODERATE 2
amounts of urine
Number of approximated LARGE 1
amounts of urine
Lab Results
07/01/23 04:59
07/01/23 04:59
Physical Exam
-
General: No Acute Distress and AOx3
Abdomen: Soft, Non Distended and Non Tender
Wound: Dressing Changed (removed)
Incision: Clear, Dry, Intact
--- NOTE | 2023-07-02 09:48 | W.DS.TRANS ---
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
-
Discharge Instructions:
Discharge Diagnosis/Procedures Exam under anesthesia, incision and drainage of
left anterior intersphincteric perianal abscess,
fistulotomy, diabetes, factor V Leyden, high
cholesterol
Diet Diabetic, Carb Controlled
Activity No strenuous activity,As tolerated
Driving Restrictions Okay to drive but do not drive when using
narcotic
Bathing Restrictions None
Wound Care Sitz bath's twice a day for 7 days, 10 minutes
at a time with warm water.
Instructions: How to Do a Sitz Bath
Stand-Alone Forms:
Changes to Home Medications: Yes
Discharge Medications:
DC Medications w/original date entered in [facility]
rivaroxaban 20 mg tablet (Xarelto) 20 mg PO DAILY Blood clot prevention/tx 11/09/17
atorvastatin 10 mg tablet 10 mg PO DAILY High cholesterol 08/09/20
dapagliflozin propanediol 5 mg tablet (Farxiga) 5 mg PO DAILY Diabetes 08/09/20
insulin glargine 100 unit/mL subcutaneous solution (Lantus U-100 Insulin) 36 unit SC HS diabetes 06/24/23
dibucaine 1 % rectal ointment 1 applic OR TID PRN rectal discomfort #56 grams 06/25/23
tramadol 50 mg tablet 50 mg PO Q6H PRN Pain #20 tabs 06/25/23
semaglutide (weight loss) 0.5 mg/0.5 mL subcutaneous pen injector (Wegovy) 0.5 mg SC SA weight loss 06/30/23
cefdinir 300 mg capsule 300 mg PO Q12H 10 days #20 caps 07/02/23
metronidazole 500 mg tablet 500 mg PO Q12H 10 days #20 tabs 07/02/23
tramadol 50 mg tablet 50 mg PO Q6H PRN Pain #20 tabs 07/02/23
Home Medication Changes
cefdinir 300 mg capsule 300 mg PO Q12H 10 days #20 caps 07/02/23
metronidazole 500 mg tablet 500 mg PO Q12H 10 days #20 tabs 07/02/23
tramadol 50 mg tablet 50 mg PO Q6H PRN Pain #20 tabs 07/02/23
Pending Results: Yes
Additional Pending Results:
blood cultures
--- NOTE | 2023-07-02 10:22 | W.PN.HOSP.TC ---
Today's Communication/Plan
-
Discharge plan noted
Outpatient follow-up with GI for colonoscopy
Assessment / Plan
Assessment / Plan
Patient denies any pain today.
Cardiovascular system S1-S2 appreciated
Chest clear to auscultation
Abdomen soft nontender
# Anal fissure status post sphincterotomy 06/24/23
Readmitted with pain, rectal bleeding and fever
Change antibiotics to cefdinir and Flagyl for 10 days.
Status post OR yesterday for exam under anesthesia, I&D of the left anterior intersphincteric perianal abscess, fistulotomy
Okay to restart Xarelto per discussion colorectal
Pain control
Would avoid NSAIDs as he is on Xarelto.
With patient's fistula I would recommend that he follow-up with GI to rule out Crohn's disease
Patient is aware regarding the need for colonoscopy. Also discussed with colorectal
# Factor V Leyden-history of DVT 2021
Restart Xarelto
# Hyperlipidemia-continue statin
# Diabetes-takes Farxiga ,Uses Lantus 36 units at night as outpatient
Hemoglobin A1c 8.2
Resume usual dose of Lantus
Farxiga can be restarted
# History of migraine-as needed Imitrex
# Obesity-BMI criteria
# DVT prophylaxis-SCDs. Xarelto
# Full code
D/W Colorectal
Anticipated Discharge: Today
Subjective/Interval History
-
Date of Service: July 02, 2023
Objective Data
-
Vital Signs:
Vital Signs
Temp Pulse Resp BP Pulse Ox
98.2 F 71 16 121/65 96
07/02/23 08:01 07/02/23 08:01 07/02/23 08:01 07/02/23 08:01 07/02/23 08:01
I&O
07/01/23 07/02/2324
06:59 06:59 06:59
Intake Total 120 / 120 2780 / 2780
Balance 120 / 120 2780 / 2780
[2023-07-02] MEDS: XARELTO 20 MG PO (10:37)
[2023-07-02] MEDS: FARXIGA 5 MG PO (10:37)
--- NOTE | 2023-07-02 11:36 | CM ---
Reviewed the chart notes. The patient is discharged to home with no additional needs being identified at this time. CM continues to be available to patient/family and is monitoring medical plan for needs at discharge.
Plan: Discharge to home today. Family will provide transportation.
== END 2023-07-02 11:07 | disposition home or self-care (01) ==
LOC: 2 SOUTH 00:30
PROVIDERS: Clinical Nurse Specialist Family Health; Emergency Medicine; Nurse Practitioner Family; ADMITTING PHYSICIAN Surgery; ATTENDING PHYSICIAN Surgery; CONSULT PHYSICIAN Hospitalist; EMERGENCY PHYSICIAN Emergency Medicine; FAMILY PHYSICIAN Family Medicine
DX: T81.41XA Infection following a procedure, superficial incisional surgical site, initial encounter (principal); K61.4 Intrasphincteric abscess; K91.840 Postprocedural hemorrhage of a digestive system organ or structure following a digestive system procedure; Y83.8 Other surgical procedures as the cause of abnormal reaction of the patient, or of later complication, without mention of misadventure at the time of the procedure; K61.0 Anal abscess; Y92.9 Unspecified place or not applicable; D68.32 Hemorrhagic disorder due to extrinsic circulating anticoagulants; E66.9 Obesity, unspecified; D68.51 Activated protein C resistance; R50.9 Fever, unspecified; R42 Dizziness and giddiness; E11.9 Type 2 diabetes mellitus without complications; E78.00 Pure hypercholesterolemia, unspecified; I10 Essential (primary) hypertension; J45.909 Unspecified asthma, uncomplicated; Z87.891 Personal history of nicotine dependence; Z83.79 Family history of other diseases of the digestive system; Z82.49 Family history of ischemic heart disease and other diseases of the circulatory system; Z86.718 Personal history of other venous thrombosis and embolism; Z87.442 Personal history of urinary calculi; Z87.01 Personal history of pneumonia (recurrent); Z90.49 Acquired absence of other specified parts of digestive tract; Z79.01 Long term (current) use of anticoagulants; Z79.4 Long term (current) use of insulin; Z79.85 Long-term (current) use of injectable non-insulin antidiabetic drugs; Z88.1 Allergy status to other antibiotic agents; Z91.030 Bee allergy status; Z91.040 Latex allergy status; Z88.8 Allergy status to other drugs, medicaments and biological substances; Z91.018 Allergy to other foods; Z68.33 Body mass index [BMI] 33.0-33.9, adult; Z11.52 Encounter for screening for COVID-19
CPT/HCPCS: 46275; 46060; 72193; 80048; 80053; 82962; 83605; 85025; 85610; 85730; 86850; 86900; 86901; 87040; 87502; 87811; 96361; 96374; 96375; 96376; 99285; G0378; Q9967

== ENCOUNTER 2023-07-17 06:38 | Day surgery (SDC) | payer OTHER, SELFPAY ==
[2023-07-17] VITALS (7 sets, daily range): BP systolic 12–127; BP diastolic 68–89; BMI 33.0
[2023-07-17] MEDS: CELEBREX 200 MG PO (11:31)
[2023-07-17] MEDS: TYLENOL 1000 MG PO (11:31)
[2023-07-17] MEDS: LYRICA 150 MG PO (11:31)
[2023-07-17] MEDS: NORMOSOL-R 1000 IV (11:34)
[2023-07-17 11:36] LABS: Glucose - Point of Care 105 mg/dl (70-99)
--- NOTE | 2023-07-17 12:28 | W.IMMPOSTOP ---
Addendum entered and electronically signed by Jean Carlos Rosas MD 07/17/23 17:01:
Correction: 'debridement of left anterior wound' was entered in error, this was not performed; 'anoscopy' was performed
Original Note:
Surgical Immed Post Op Note
-
Primary Surgeon: Jean Carlos Rosas MD
Assisting Surgeon: Celestine Palencia MD
Pre-op Diagnosis: Perianal pain, history of perianal abscess, history of sphincterotomy
Post-op Diagnosis: Same
Procedure Performed: Exam under anesthesia, debridement of left anterior wound, bilateral pudendal nerve block
Anesthesia Type: MAC with local
Specimen / Cultures: None
Estimated Blood Loss: 15 mL
Complications: None
Operative Findings: Previous left anterior abscess wound clean and healing, no purulent drainage, no identified cavity; posterior midline fissure, stable in size, no purulent drainage or fluctuance; right incisional wound nearly healed with minimal
amount of granulation tissue, no purulent drainage or fluctuance; no palpable fluctuance throughout remainder of anal canal
--- NOTE | 2023-07-17 12:31 | OR.RPT ---
Operative Report
Operative Report
DATE OF OPERATION: 07/17/2023
SURGEON: Jean Carlos Rosas MD
PREOPERATIVE DIAGNOSIS: Perianal pain, history of perianal abscess, history of right lateral internal sphincterotomy
POSTOPERATIVE DIAGNOSIS: Same
OPERATION: Exam under anesthesia, anoscopy, bilateral pudendal nerve block
ASSISTANTS:
1. Celestine Palencia MD
ANESTHESIA: MAC w/ local
ESTIMATED BLOOD LOSS: 15 mL
FINDINGS:
1. Previous left anterior anal wound healing without evidence of infection or abscess; probed and no abscess cavity identified
2. PML fissure about 1.2 cm long and 8 mm wide, no evidence of infection or abscess
3. Right lateral incisional wound nearly completely healed with minimal granulation tissue
4. No obvious etiology for perianal pain aside from healing wounds
SPECIMENS:
1. None
DRAINS: None
COMPLICATIONS: None
INDICATIONS: The patient is a 43-year-old male who had refractory pain due to a posterior midline fissure and underwent a right lateral internal sphincterotomy on 06/24/2023. A week later, he developed worsening pain and was found to have a left
anterior intersphincteric abscess associated with fistula and underwent an incision and drainage and fistulotomy on 07/01/2023. His postoperative course was complicated by significant pain controlled with a multimodal pain regiment. 4 to 5 days ago,
however, started to develop worsening pain again associated with low-grade fevers. I examined him in the office but the exam was limited due to pain. Therefore, I recommended an exam under anesthesia to rule out a recurrent infection or abscess.
The operation was discussed with the patient in detail, including the risks, benefits and alternatives. Risks described included, but not limited to bleeding, infection, urinary retention, damage to nearby structures such as the anal sphincter,
fecal incontinence, recurrence, possibility of finding no acute pathology, and anesthetic risks. The patient understood and agreed to proceed. The consent was signed and placed in the chart.
PROCEDURE IN DETAIL: The patient was taken to the operating room and placed on the operating table in prone position. Sequential compression devices were placed bilaterally. Sedation was commenced without complication. Two seat belts were secured
around the legs and upper back. The buttocks were taped apart. The perineum was prepped and draped in the usual fashion. A time-out was then performed verifying the correct patient, procedure, operative site, positioning, and special equipment.
Local anesthesia used was a mixture of 60 mL of 0.25% Marcaine without epinephrine (with epinephrine was on backorder) and 0.6 mg of dexamethasone. 40 mL was injected perianally at the beginning of the case. The anorectal exam was performed
assessing all four quadrants of the anal canal using Twin-Elizalde retractors in progressively increasing size. The left anterior wound from his previous I&D was clean and healing. The base had granulation tissue. There was no purulent drainage
or fluctuance. The wound was probed and no significant cavity or fistula was identified. The posterior midline fissure was still present, about the same size as my last examination in the operating room 2 weeks ago. There was no fluctuance
associated with the fissure and no purulent drainage. The 2 cm right lateral incision from the sphincterotomy was almost completely healed with a small amount of granulation tissue. There was no fluctuance or purulent drainage associated with
this. The remainder of the anal canal was closely assessed. There was no fluctuance or expression of pus noted. An 18-gauge finder needle with 10 cc syringe was used and the ischiorectal space was investigated by inserting the needle while
aspirating in 6 locations around the anus. No purulent drainage was encountered. Lastly, I inserted the finder needle into the left anterior anal wound while aspirating, but no purulent drainage was noted.
The anal canal was examined with the small Hill-Elizalde and hemostasis was achieved. Surgicel was placed in the operative site prophylactically. At the end of the case, the remaining 20 mL of local were injected. 5 mL was injected bilaterally for
a pudendal nerve block. 10 mL was injected perianally. At this point, the procedure was complete. All needle, sponge and instrument counts were correct. The patient tolerated the procedure well and was transferred to the recovery room in stable
condition with gauze dressing in place secured with silk tape.
Of note, Celestine Palencia MD, dermatology physician assistant, was necessary during this procedure for traction, countertraction, and exploratory purposes. I was present for the entire duration of the case.
DICTATED BY: Jean Carlos Rosas MD
[2023-07-17 12:44] LABS: Glucose - Point of Care 119 mg/dl (70-99)
== END 2023-07-17 13:57 | disposition home or self-care (01) ==
LOC: SDS 06:38
PROVIDERS: ATTENDING PHYSICIAN Surgery
DX: K62.89 Other specified diseases of anus and rectum (principal); K61.0 Anal abscess
CPT/HCPCS: 45990; 64430; 82962

== ENCOUNTER 2023-08-05 17:56 | Inpatient (IN) | payer OTHER, SELFPAY ==
[2023-08-05 13:12] VITALS: BP 130/98
[2023-08-05 13:29] LABS: % Basophils 1.2 % (0-2); % Eosinophils 2.8 % (0-6); % Immature Granulocytes 0.1 % (0-0.5); % Lymphocytes 32.5 % (20.5-51.1); % Monocytes 6.9 % (1.7-9.3); % Neutrophils 56.5 % (42.2-75.2); Absolute Basophils 0.1 10^3/uL (0-0.2); Absolute Eosinophils 0.2 10^3/uL (0-0.7); Absolute Lymphocytes 2.2 10^3/uL (1.2-3.4); Absolute Monocytes 0.5 10^3/uL (0.1-0.6); Absolute Neutrophils 3.8 10^3/uL (1.4-6.5); Hemoglobin 17.7 g/dL (13.0-18.0); Mean Corp Hgb Conc. 34.7 g/dL (33.0-37.0); Mean Corpuscular Hgb 30.9 pg (27.0-31.0); Mean Platelet Volume 9.3 fL (7.4-10.4); Nucleated Red Blood Cells % 0 % (-); Platelet Count 185 10^3/uL (130-400); Red Blood Cell Count 5.73 10^6/uL (4.70-6.10); Red Cell Dist. Width 12.2 % (11.5-14.5); White Blood Cell Count 6.8 10^3/uL (4.8-10.8)
[2023-08-05 13:40] LABS: INR 1.04; PT 13.4 Sec (11.4-14.6)
[2023-08-05 13:41] LABS: APTT 27.4 Sec (23.4-35.0)
[2023-08-05 13:45] LABS: ALT (SGPT) 58 U/L (0-50); AST (SGOT) 28 U/L (17-59); Albumin 4.6 g/dl (3.5-5.0); Alkaline Phosphatase 87 U/L (38-126); Blood Urea Nitrogen 13 mg/dl (9-20); Calcium 9.6 mg/dl (8.4-10.2); Carbon Dioxide 25 mmol/L (22-30); Chloride 105 mmol/L (98-107); Glucose 231 mg/dl (70-99); Potassium 4.6 mmol/L (3.5-5.1); Sodium 136 mmol/L (135-145); Total Bilirubin 0.4 mg/dl (0.2-1.3); Total Protein 7.6 g/dl (6.3-8.2); eGFR > 60.00
--- NOTE | 2023-08-05 13:57 | CON.CRS ---
Consultation
-
Date/Time Consultation Performed: 08/05/2023, 14:40
Performing Provider: Jean Carlos Rosas MD
Reason for Consultation: anal pain
Medical History
-
Chief Complaint: anal pain
History of Present Illness:
43-year-old male with a significant past medical history of an anal abscess status post multiple procedures, presents to the emergency department after being sent from the GI office during an outpatient appointment due to lightheadedness.
The patient was initially seen by Dr. Palencia on 06/14/2023 and diagnosed with a likely fissure. He did not improve much with nonoperative measures and presented again to the emergency department on 06/24/[address] Rosas took him
to the operating room that day for an EUA and I&D of a left intersphincteric abscess and Fistulotomy. He was then discharged next day. He was seen in the office on 07/16/2023 and given refractory pain, underwent an EUA and debridement of the left
anterior wound and a bilateral pudendal nerve block by Dr. Rosas. He was discharged that same day on antibiotics. He was again seen on the office on 08/02/2023 and at that time stated his pain at become minor up until about 3 days prior where he had
sharp pains in the perianal region as well as bright red blood and black tarry stools. This was also associated with some nausea. Dr. Rosas spoke to the patient and exam under anesthesia with flexible sigmoidoscopy with possible I&D of an abscess
was arranged for tomorrow 08/06/2023. However given his lightheadedness in the GI office, he is here today in the ER for further evaluation.
Past Medical History
Past Medical History: HTN, Hypercholesterolemia and Other (factor V leiden, obesity, DVT/PE, DM II, perianal abscess s/p ID)
Past Surgical History: Cholecystectomy and Other (orchipexy, carpal tunnel release, L ankle arthoscopy, left ankle ligament repair, 07/27/2023- Exam under anesthesia, debridement of left anterior wound, bilateral pudendal nerve block, 07/01/2023-
incision and drainage of left anterior intersphincteric perianal abscess, fistulotomy)
Social History
Tobacco: Non-Smoker
Alcohol: None
Drug: None
Family History
Family History: Reviewed & Not Pertinent
Allergies / Home Medications
Allergy/AdvReac Type Severity Reaction Status Date / Time
adhesive Allergy Hives Verified 08/05/23 13:14
azithromycin [From Zithromax] Allergy Unresponsiv Verified 08/05/23 13:14
e
bee venom protein (honey bee) Allergy Swelling Verified 08/05/23 13:14
coconut Allergy Throat Verified 08/05/23 13:14
swelling
latex Allergy swelling Verified 08/05/23 13:14
and rash
pseudoephedrine AdvReac double Verified 08/05/23 13:14
vision
�Medication �Instructions �Recorded �Confirmed �Type
rivaroxaban 20 mg tablet (Xarelto) 20 mg PO DAILY Blood clot 11/09/17 07/17/23 History
prevention/tx
atorvastatin 10 mg tablet 10 mg PO DAILY High cholesterol 08/09/20 07/17/23 History
dapagliflozin propanediol 5 mg 5 mg PO DAILY Diabetes 08/09/20 07/17/23 History
tablet (Farxiga)
insulin glargine 100 unit/mL 36 unit SC HS diabetes 06/24/23 07/17/23 History
subcutaneous solution (Lantus
U-100 Insulin)
dibucaine 1 % rectal ointment 1 applic [place] TID PRN rectal 06/25/23 07/17/23 Rx
discomfort #56 grams
semaglutide (weight loss) 0.5 0.5 mg SC SA weight loss 06/30/23 07/17/23 History
mg/0.5 mL subcutaneous pen
injector (Wegovy)
acetaminophen 500 mg tablet 1,000 mg PO Q6H PRN discomfort 07/16/23 07/17/23 History
tramadol 50 mg tablet 50 mg PO Q6H PRN Pain #30 tabs 07/17/23 Rx
Review of Systems
-
History Source: Patient
Constitutional: Other (lightheadedness)
Abdomen/GI: Other (anal pain)
A 10 point review of systems was completed, and was negative except as per HPI.
Physical Exam
Vital Signs
Temp 98.2 F 08/05/23 13:12
Pulse 89 08/05/23 13:12
Resp Rate 18 08/05/23 13:12
Blood pressure 130/98 08/05/23 13:12
SaO2 98 08/05/23 13:12
Lab Results / Allergies
08/05/23 13:23
08/05/23 13:24
WBC 6.8 10^3/uL (4.8-10.8) 08/05/23 13:23
Hgb 17.7 g/dL (13.0-18.0) 08/05/23 13:23
Hct 51.0 % (39.0-52.0) 08/05/23 13:23
Plt Count 185 10^3/uL (130-400) 08/05/23 13:23
Abs Immat Gran (auto) 0.0 10^3/uL (0-0.05) 08/05/23 13:23
Neutrophils % 56.5 % (42.2-75.2) 08/05/23 13:23
Allergy/AdvReac Type Severity Reaction Status Date / Time
adhesive Allergy Hives Verified 08/05/23 13:14
azithromycin [From Zithromax] Allergy Unresponsiv Verified 08/05/23 13:14
e
bee venom protein (honey bee) Allergy Swelling Verified 08/05/23 13:14
coconut Allergy Throat Verified 08/05/23 13:14
swelling
latex Allergy swelling Verified 08/05/23 13:14
and rash
pseudoephedrine AdvReac double Verified 08/05/23 13:14
vision
Physical Exam
General: Well Developed, Well Nourished and No Apparent Distress
Skin: Warm and Dry
Neuro: AO x 3
Psych: Calm
Data Reviewed
-
Labs: Labs Reviewed by me and Discussed with Physician
Old Records: Reviewed
Assessment / Plan
-
Assessment: 43 year old male s/p sphincterotomy and I&D of perianal abscess/fistulotomy and subsequent debridement of left anterior wound, bilateral pudendal nerve block presents to the ER from GI outpatient office, complaining of lightheadedness
and anal pain
Plan:
1. Will plan on taking to the OR tomorrow (had already been scheduled) for an exam under anesthesia, flexible sigmoidoscopy, and possible I+d of perianal abscess.
2. Remain NPO after midnight.
3. Hold Xarelto due to OR.
4. Pain control per primary team.
5. Please place TEDs/SCDS (will need for the OR).
--- NOTE | 2023-08-05 16:41 | ED.GENMED ---
History of Present Illness
General
Chief Complaint: Rectal Bleeding
Source: patient
Exam Limitations: none
Time Seen by Provider: 08/05/23 16:16
Nursing documentation reviewed up to this point in time: agreed with
Travel History
Have you had any contact with someone who has COVID-19?: No
Do you have any symptoms of coronavirus? Fever > 100 degrees, chills, cough, shortness of breath, sore throat, loss of taste or smell, muscle aches, or headache?: No
History of Present Illness
History of Present Illness:
43-year-old male with history of IDDM, Factor V Leiden on Xarelto, last dose was 4 days ago. Per pt, hx rectal fissure in May 2023, subsequent infection and persistent bleeding with multiple trips to the OR the last 1 being 07/17/2023 presents
with history of 6 days ago having black tarry stool and still with bright red blood in the toilet with bowel movements. He is followed by colorectal surgeon Dr. Jean Carlos Rosas who actually has him scheduled for the OR tomorrow. He is to be admitted
here tonight and n.p.o. after midnight.
GI doctor to evaluate for the tarry stools.
Past History
Past History
ED Past Medical History: Asthma, IDDM, Other (PNA, DVT, Renal calculus, Factor V leiden, ) and Other (DVT factor V Leiden, DVT, chronically maintained on Xarelto)
ED Past Surgical History: Cholecystectomy, Orthopedic (Left foot surgery, Left ankle surgery, Right carpal tunnel Left wrist/hand surery. ), Urological (Undescended testicle repair as ) and Other (Anal fissure repair ); Negative Appendectomy
or Bowel resection
Social History
Tobacco: Former smoker
Alcohol: None
Drug: None
Personal:
Living: with family
Employment: Employed
Family History
Family History: Hypertension and Other (Gallbladder disease)
Review of Systems
Review of Systems
Allergies reviewed?: Yes
All Other Systems: ROS reviewed and negative except as documented in HPI and ROS
Constitutional: Denies fever
Respiratory: Denies trouble breathing
Cardiac: Denies chest pain or syncope
ABD/GI: Reports bloody stools and black stools; Denies abdominal pain, nausea or vomiting
: Denies dysuria or difficulty voiding
Musculoskeletal: Reports no symptoms
Skin: Reports no symptoms
Neurological: Reports no symptoms
Phy Exam
Physical Exam
Physical Exam:
GENERAL: No acute distress. A&Ox3.
CONSTITUTIONAL: Afebrile.
EYES: clear, conjunctivae normal
ENMT: moist mucus membranes, Pharynx nl
RESPIRATORY: Regular respirations, nonlabored, lungs clear.
CARDIOVASCULAR: Regular rate and rhythm, no murmurs, no rubs.
GI: Soft, nontender, normal BS
MUSCULOSKELETAL: Moves with ease. Well perfused.
SKIN: Warm, dry, pink
PSYCH: Normal mood and affect. Well kept, interactive and appropriate
NEUROLOGIC: Awake, alert and oriented. No focal neurological deficits
Course
Orders/Labs/Results
Orders:
Orders
08/05/23 Breakfast
2200 calorie (18 carb) Diabetic
At Your Request: Full Participation
08/05/23 13:17
EKG [Electrocardiogram (*1)] Urgent
Reason for Study: Fatigue / Weakness
EKG- Treatment ONCE
08/05/23 13:23
Type+Screen Urgent
Complete Blood Count/With Diff Urgent
08/05/23 13:24
Comprehensive Metabolic Panel Urgent
PTT Urgent
Prothrombin Time Urgent
08/05/23 16:39
ColoRectal Surgery Consult Urgent
Consulting Provider: Jean Carlos Rosas
Was physician already notified: Yes
Reason for consult: rectal bleed, fissure
08/05/23 16:47
Diazepam [Valium] 5 mg PO NOW STA
08/05/23 17:17
GASTROINTESTINAL CONSULT Routine
Consulting Provider: Abdoul Jenkins
Was physician already notified: Yes
08/05/23 17:33
Admit/Transfer Patient As Directed
Co-Sign Provider:
Level of Care: Inpatient admission
Assign to:: Medical/Surgical
Physician / Group: [email or web address]
Diagnosis: rectal bleed
Reason for Hospitalization: rectal bleed
Expected length of stay greater than two midnights?: Yes
ELOS- Estimated Length of Stay in days: 3
I certify the patient meets the requirements for IP care: Yes
08/05/23 17:35
Code Status As Directed
Resuscitation Status: Full Code
08/05/23 18:43
Dextrose 50%-Water [Dextrose 50% Syringe] 12.5 grams IV [id number] PRN
Glucagon [GlucaGen] 1 mg IM PRN PRN
08/05/23 18:43
Activity As Directed
Activity Level: As Tolerated
Bedside Glucose Monitoring As Directed
Frequency: AC&HS
Additional Instructions:: Change to q6h if pt on TPN, tube feeding or not eating
INT (Intravenous Needle Therapy) As Directed
Comment: Place 2 IV catheters of the largest bore possible until stable
Orthostatic Vital Signs As Directed
Orthostatic VS Frequency: Now
Comment: then every four hours for twenty-four hours
Venous Foot Pumps As Directed
Location: Bilateral feet
Vital Signs As Directed
Frequency: Per unit guidelines
DX Deep Vein Thrombosis Video Routine
08/05/23 20:00
Pantoprazole [Protonix IV] 40 mg IV BID
08/05/23 22:00
insulin glargine [Lantus U-100 Insulin] 20 unit SC HS
08/06/23 00:00
0.9% Sodium Chloride 1000 ml [Nss] 1,000 ml IV 70 mls/hr
08/06/23 05:25
Basic Metabolic Panel IN AM
Complete Blood Count/No Diff IN AM
Glycohemoglobin (HgbA1c) IN AM
08/06/23 Breakfast
NPO
Allow oral meds: Yes
Allow clear liquids: No
NPO for procedure after (time): 08/05/2023 2359
08/06/23 07:30
Insulin Aspart Corrective Low [Novolog Flexpen-Low Resistance] See Protocol SC AC
08/06/23 08:00
Atorvastatin [Lipitor] 10 mg PO DAILY
08/07/23 06:00
Basic Metabolic Panel IN AM
Complete Blood Count/No Diff IN AM
08/08/23 06:00
Basic Metabolic Panel IN AM
Complete Blood Count/No Diff IN AM
08/09/23 06:00
Basic Metabolic Panel IN AM
Complete Blood Count/No Diff IN AM
08/10/23 06:00
Basic Metabolic Panel IN AM
Complete Blood Count/No Diff IN AM
Abnormal Lab Results
08/05/23
13:24
Glucose 231 H mg/dl
(70-99)
ALT 58 H U/L
(0-50)
08/05/23 13:23
08/05/23 13:24
Vital Signs
Initial and Last Documented VS:
Initial Vital Signs
Temp Pulse Resp BP Pulse Ox
98.2 F 89 18 130/98 98
08/05/23 13:12 08/05/23 13:12 08/05/23 13:12 08/05/23 13:12 08/05/23 13:12
Last Documented Vital Signs
Temp Pulse Resp BP Pulse Ox
97.2 F 78 19 123/70 96
08/06/23 07:30 08/06/23 07:30 08/06/23 07:30 08/06/23 07:30 05/07/24 07:30
MDM/Problems Addressed
Differential Diagnosis Includes:
anal fissure, ramona rectal abscess, GI bleed
MDM/Problems Addressed:
43-year-old male with history of IDDM, Factor V Leiden on Xarelto, last dose was 4 days ago. Per pt, hx rectal fissure in May 2023, subsequent infection and persistent bleeding with multiple trips to the OR the last one being 07/17/2023
presents with history of 6 days ago having black tarry stool and still with bright red blood in the toilet with bowel movements. He is followed by colorectal surgeon Dr. Jean Carlos Rosas who actually has him scheduled for the OR tomorrow. He is to be
admitted here tonight and n.p.o. after midnight.
GI doctor to evaluate for the tarry stools.
Afebrile, NAD
No significant bleeding at this time, will defer rectal exam.
CBC, CMP unremarkable.
Patient is stable,
To be n.p.o. after midnight
Consult for colorectal surgery in
hospitalist notified of admission.
Chronic conditions affecting care: DM and Other (Factor V Leiden maintained on Xarelto)
*Critical Care Note
Total Time (30-74mins, 75-104mins- exclusive of procedures): Not Applicable
ED Attending Note
-
Portions of this chart may have been created with voice recognition software.� Occasional wrong word or��sound alike� substitutions may have occurred due to the inherent limitations of voice recognition software.
Discharge Plan
Departure
Patient Disposition: Admit
Date of Disposition: 08/05/23
Time of Disposition: 16:39
Presentation/result/management discussed w/ accepting MD/DO: Hospitalist
Condition: Fair
Discharge Problem:
GI bleed, Rectal bleeding, Acute anal fissure
Interventions
Interventions:
*Risk Screen - Suicide Last Done: 08/05/23 20:46
*General Assessment Last Done: 08/05/23 17:24
*Neglect/Abuse Screening Last Done: 08/05/23 17:24
ED- Fall Risk Assessment Last Done: 08/05/23 17:24
*ED COVID-19 Vaccine History Last Done: 08/05/23 17:24
*Nursing Disposition Last Done: 08/05/23 18:31
ZI-Hhlewo-Oicpqbtqvk Assessment Last Done: 08/05/23 17:24
ED- Cardiac Assessment Last Done: 08/05/23 17:24
ED- Pulmonary Assessment Last Done: 08/05/23 17:24
Discharge Date and Time
Discharge Date/Time: 08/05/23 18:34
--- NOTE | 2023-08-05 17:07 | HPS.HSE ---
Addendum entered and electronically signed by Washington Hanson MD 08/05/23 17:53:
Correct Allergies/Meds as below
Allergies
Allergy/AdvReac Type Severity Reaction Status Date / Time
adhesive Allergy Hives Verified 08/05/23 13:14
azithromycin [From Zithromax] Allergy Unresponsiv Verified 08/05/23 13:14
e
bee venom protein (honey bee) Allergy Swelling Verified 08/05/23 13:14
coconut Allergy Throat Verified 08/05/23 13:14
swelling
latex Allergy swelling Verified 08/05/23 13:14
and rash
pseudoephedrine AdvReac double Verified 08/05/23 13:14
vision
Home Medications
rivaroxaban 20 mg tablet (Xarelto) 20 mg PO DAILY Blood clot prevention/tx 11/09/17
atorvastatin 10 mg tablet 10 mg PO DAILY High cholesterol 08/09/20
dapagliflozin propanediol 5 mg tablet (Farxiga) 5 mg PO DAILY Diabetes 08/09/20
dibucaine 1 % rectal ointment 1 applic [place] TID PRN rectal discomfort #56 grams 06/25/23
diazepam 5 mg tablet 5 mg PO Q6HPRN PRN anal spasms 08/05/23
insulin glargine 100 unit/mL (3 mL) subcutaneous pen (Lantus Solostar U-100 Insulin) 36 unit SC HS 08/05/23
levofloxacin 750 mg tablet 750 mg PO HS 08/05/23
metronidazole 500 mg tablet 500 mg PO TID 08/05/23
semaglutide (weight loss) 1 mg/0.5 mL subcutaneous pen injector (Wegovy) 1 mg SC SA@0800 08/05/23
Addendum entered and electronically signed by Washington Hanson MD 08/05/23 17:39:
see update note for addendum
Original Note:
Family Physician
-
Family Physician: Muna Macias
Chief Complaint
-
Rectal bleed
History of Present Illness
43-year-old male with a significant past medical history of an anal abscess status post multiple procedures, type 2 diabetes, hypertension, factor V Leyden, hyperlipidemia, migraine presents to the emergency department after being sent from the GI
office during an outpatient appointment due to lightheadedness dizzy. He has been feeling lightheaded and dizzy for past few days. patient complaining of sharp pain in the perianal region. He also complained of intermittent black, tarry stools for
past few weeks. Patient stated epigastric pain. complaining of nausea. Denies any vomiting or poor appetite. Patient denies any fever but complains of chills. Denied headache. Denied chest pain or short of breath. Patient denied dysuria
hematuria. patient was scheduled for possible I&D and abscess tomorrow. Patient held Xarelto due to bloody stools couple days ago
Admitting for further management
Medical History
Past Medical History
Past Medical History: Reports Other
Additional Past Medical History:
HTN, Hypercholesterolemia and Other (factor V leiden, obesity, DVT/PE, DM II, perianal abscess
Past Surgical History: Reports Other
Additional Past Surgical History:
orchipexy, carpal tunnel release, L ankle arthoscopy, left ankle ligament repair, 07/27/2023- Exam under anesthesia, debridement of left anterior wound, bilateral pudendal nerve block, 07/01/2023- incision and drainage of left anterior intersphincteric
perianal abscess, fistulotomy
Social History
Tobacco: Non-smoker
Alcohol: None
Drug: None
Family History
Family History: Not pertinent
Allergies / Home Medications
Allergies reflects when Allergies were last updated in [employer].
Home Medications with original date entered in [employer]
Allergy/Medication List:
Allergies
Allergy/AdvReac Type Severity Reaction Status Date / Time
adhesive Allergy Hives Verified 08/05/23 13:14
azithromycin [From Zithromax] Allergy Unresponsiv Verified 08/05/23 13:14
e
bee venom protein (honey bee) Allergy Swelling Verified 08/05/23 13:14
coconut Allergy Throat Verified 08/05/23 13:14
swelling
latex Allergy swelling Verified 08/05/23 13:14
and rash
pseudoephedrine AdvReac double Verified 08/05/23 13:14
vision
Home Medications
rivaroxaban 20 mg tablet (Xarelto) 20 mg PO DAILY Blood clot prevention/tx 11/09/17
atorvastatin 10 mg tablet 10 mg PO DAILY High cholesterol 08/09/20
dapagliflozin propanediol 5 mg tablet (Farxiga) 5 mg PO DAILY Diabetes 08/09/20
insulin glargine 100 unit/mL subcutaneous solution (Lantus U-100 Insulin) 36 unit SC HS diabetes 06/24/23
dibucaine 1 % rectal ointment 1 applic [place] TID PRN rectal discomfort #56 grams 06/25/23
semaglutide (weight loss) 0.5 mg/0.5 mL subcutaneous pen injector (Wegovy) 0.5 mg SC SA weight loss 06/30/23
acetaminophen 500 mg tablet 1,000 mg PO Q6H PRN discomfort 07/16/23
tramadol 50 mg tablet 50 mg PO Q6H PRN Pain #30 tabs 07/17/23
Review of Systems
-
Constitutional: Reports No Symptoms
EENT: Reports No Symptoms
Respiratory: Reports No Symptoms
Cardiac: Reports No Symptoms
Abdomen/GI: Reports Other (rectal pain)
: Reports No Symptoms
Musculoskeletal: Reports No Symptoms
Skin: Reports No Symptoms
Neurological: Reports No Symptoms
Endocrine: Reports No Symptoms
Hematologic/Lymphatic: Reports No Symptoms
Psych: Reports No Symptoms
Physical Exam
Vital Signs
Vital Signs
Temp Pulse Resp BP Pulse Ox
98.2 F 89 18 130/98 98
08/05/23 13:12 05/06/24 13:12 08/05/23 13:12 08/05/23 13:12 08/05/23 13:12
Physical Exam
General: Well Developed, Well Nourished and No Apparent Distress
HEENT: NormoCephalic, Moist mucous membranes and Atraumatic
Respiratory: Clear
Cardiac: S1/S2 and Regular Rhythm; No Murmur or Rub
GI: Soft, Non Tender, Non Distended, Normal Bowel Sounds and Other (rectal abscess); No Organomegaly
Rectal: Deferred by Provider
Musculoskeletal: No Clubbing, No Cyanosis and No Edema
Skin: No Rash
Neuro: AO x 3 and Nonfocal/grossly intact
Psych: Calm
Laboratory Results
-
08/05/23 13:23
08/05/23 13:24
Laboratory Results
PT 13.4 Sec (11.4-14.6) 08/05/23 13:24
INR 1.04 08/05/23 13:24
APTT 27.4 Sec (23.4-35.0) 08/05/23 13:24
Total Bilirubin 0.4 mg/dl (0.2-1.3) 08/05/23 13:24
AST 28 U/L (17-59) 08/05/23 13:24
ALT 58 U/L (0-50) H 08/05/23 13:24
Alkaline Phosphatase 87 U/L (38-126) 08/05/23 13:24
Data Reviewed
-
Lab Data: Labs Reviewed by me
Impression/Plan
-
# Rectal bleeding
-hgb stable
-IV PPI BId
-monitor CBC
-GI c consulted
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
-Scheduled for fissure and exploratory rectal
-N.p.o. after midnight
-Hemoglobin stable at 17.7
-Colorectal consulted
## Factor V Leyden-history of DVT 2021
-hold Xarelto
# Hyperlipidemia-continue statin
# Diabetes
-takes Farxiga ,Uses Lantus 36 units at night as outpatient
-hold farxiga
-lantus 20u at hs
# History of migraine-as needed Imitrex
# Obesity-BMI criteria
# DVT prophylaxis-SCDs.
# Full code
[2023-08-05 17:23] VITALS: BP 107/86
[2023-08-05] MEDS: VALIUM 5 MG PO (17:23)
[2023-08-05 17:24] VITALS: BMI 34.2
--- NOTE | 2023-08-05 17:40 | W.PN.UPDATE ---
Update Note
Progress Note Update
I saw and examined the patient.
The SQL DATABASE DEVELOPER Arpit's note was reviewed and I agree with the note.
Comment:
43 y/o M, hx of Factor V Leiden, IDDM, perianal abscess sent in by GI office due to lightheadedness, dizziness with reports of dark, tarry stools x 3 weeks. he also reports epigastric pain and nausea. No other complaints. He was referred to ER as
well given he is scheduled for I&D of perianal abscess tomorrow.
historically he was seen by Colorectal in May and diagnosed with anal fissure; on 06/23 had an EUA and I&D of abscess/fistulotomy.
in office 07/15, EUA and debridement of the left anterior wound and a bilateral pudendal nerve block.
Physical Exam
General: Well Developed, Well Nourished and No Apparent Distress
HEENT: Normocephalic, Moist mucous membranes and Atraumatic
Respiratory: Clear
Cardiac: S1/S2 and Regular Rhythm; No Murmur or Rub
GI: Soft, Non Tender, Non Distended, Normal Bowel Sounds and Other (rectal abscess); No Organomegaly
Rectal: Deferred by Provider
Musculoskeletal: No Clubbing, No Cyanosis and No Edema
Skin: No Rash
Neuro: AO x 3 and Nonfocal/grossly intact
Psych: Calm
Assessment:
GI bleed with dark stools, rectal bleeding exacerbated by Xarelto
- monitor Hb
- IV PPI BID
- GI Consulting; follow recs. Likely any procedure will occur post colorectal evaluation of abscess.
history of perianal abscess
- previously 06/23 had an EUA and I&D of abscess/fistulotomy, also 07/15 EUA and debridement of the left anterior wound and a bilateral pudendal nerve block.
- NPO p MN for exam under anesthesia with flexible sigmoidoscopy with possible I&D of an abscess
- continue pain control
- follow Colorectal recs
Factor V Leiden with hx of DVT 2021
- hold Xarelto for above evaluations/procedures
HLD - statin
Type 2 DM
- hold Farxiga
- continue Lantus, give 20 units tonight (usual dose 36)
- SSI
Hx of Migraine
- prn Imitrex
Obesity due to excess calories
DVT ppx: SCDs
Code: Full
[2023-08-05 18:00] VITALS: BP 126/95
[2023-08-05 20:35] VITALS: BMI 33.7
[2023-08-05] MEDS: PROTONIX IV 40 MG IV (20:59)
[2023-08-05] MEDS: NSS (PRESERVATIVE FREE) 10 ML IV (20:59)
[2023-08-05 21:04] LABS: Glucose - Point of Care 185 mg/dl (70-99)
[2023-08-05] MEDS: LANTUS 0.200000000000000011 UNITS SC (21:04)
--- NOTE | 2023-08-05 21:30 | PTCARENOTE ---
Addendum entered by Darryl Mckeon RN 08/06/23 05:03:
Boat Painter Kim Paris spoke to crisis management, they said pt cleared by them.
Original Note:
Pt admitted to 5/6 during day shift. Upon doing admission questions, pt answered yes to depression/hopelessness and suicidal thoughts with no current ideations. Pt had no order for 1-1 observation from admitting floor. JENNY Philip and
kitchen work supervisor Kim Paris made aware. Pt does not need 1-1 per kitchen work supervisor. No further orders.
[2023-08-05 23:48] VITALS: BP 111/78; BP 124/88; BP 141/93; PULSE 110; PULSE 88; PULSE 93
[2023-08-06] VITALS (13 sets, daily range): BP systolic 17–142; BP diastolic 68–99; PULSE 78–108
[2023-08-06] MEDS: NSS 1000 IV ×2 (01:27→13:10)
[2023-08-06] MEDS: VALIUM 5 MG PO (03:40)
[2023-08-06] MEDS: ZOFRAN 4 MG IV (04:33)
[2023-08-06 06:07] LABS: Hematocrit 46.6 % (39.0-52.0); Hemoglobin 16.3 g/dL (13.0-18.0); Mean Corpuscular Hgb 30.3 pg (27.0-31.0); Mean Corpuscular Volume 86.6 fL (80.0-94.0); Mean Platelet Volume 9.2 fL (7.4-10.4); Platelet Count 171 10^3/uL (130-400); Red Blood Cell Count 5.38 10^6/uL (4.70-6.10); Red Cell Dist. Width 12.4 % (11.5-14.5); White Blood Cell Count 7.7 10^3/uL (4.8-10.8)
[2023-08-06 06:14] LABS: Glucose - Point of Care 139 mg/dl (70-99)
[2023-08-06 06:33] LABS: Blood Urea Nitrogen 16 mg/dl (9-20); Calcium 9.1 mg/dl (8.4-10.2); Carbon Dioxide 26 mmol/L (22-30); Chloride 106 mmol/L (98-107); Estimated Creatinine Clearance > 125 ml/min; Glucose 126 mg/dl (70-99); Potassium 4.4 mmol/L (3.5-5.1); Sodium 137 mmol/L (135-145); eGFR > 60.00
--- NOTE | 2023-08-06 08:14 | CON.GI ---
Addendum entered and electronically signed by Nory Valdes Do, MD 08/06/23 17:09:
The DYE MIXER's note was reviewed and I agree with the note.
Comment: Marcello is a 43yo M with F5L on xarelto, DM and perianal abscess with fistulotomy who was admitted for rectal bleeding and pain. He was seen by his GI Dr Jenkins the day of admission. He also reported dark stools. After several attempts
today I could not examine patient as he was in OR most of afternoon with Dr Rosas. Labs reviewed [facility] 16.
At this juncture await results of OR procedure with Dr Rosas. C/w PPI. Monitor H/H. If remains stable without further bleeding would defer EGD to OP basis as he is known to Dr Jenkins. Will follow with you.
Original Note:
Consultation
-
Date/Time Consultation Requested: 08/05/23 @ 17:17
Date/Time Consultation Performed: 08/06/23 @ 08:15
Requesting Provider: PATIENCE Sanchez
Performing Provider: PATIENCE Alicia; Dr. Nory Burt
Reason for Consultation: melena
Medical History
Chief Complaint / HPI
Chief Complaint: rectal bleed
History of Present Illness:
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
evaluation of rectal bleeding, which we are being asked to evaluate for. Upon review of records, the pt was seen by Dr. Jenkins yesterday in our office for evaluation of melena. He has been followed by colorectal surgery, as per their outpatient
notes, for what was likely suspected to be an anal fissure in May after having constipation and significant straining, which did not improve with conservative treatments outpatient. He had been in and out the emergency room due to recurrent pain
and was taken to the OR initially on 06/23 where he had a right lateral internal tailored sphincterotomy and bilateral pudendal nerve block secondary to a posterior midline anal fissure. He had a second procedure on 06/30 after being readmitted to the ""hospital due to ongoing pain with concern for abscess formation, where he underwent I&D of the intersphincteric abscess and fistulotomy of the intersphincteric fistula. Postoperatively after being discharged he developed pain again ongoing over the
course of 1 to 2 weeks with intermittent low-grade fevers and was readmitted and underwent an EUA in which the prior abscesses had appeared resolved with nearly complete wound healing of the prior right lateral incision. He had been having ongoing
symptoms despite direct visualization showing resolution and was placed on Augmentin. He was also placed on other interventions with nifedipine/lidocaine cream and p.o. Valium to help with spasms and pain. He had plans for repeat EUA with Dr. Ralph (~) under anesthesia on 08/05. He had developed subsequent melena and bright red blood per rectum as well, and his Xarelto was placed on hold for pending procedure. He reports that for the past 2 weeks he has been having intermittent bright red
blood per rectum along with melena. He notes that he has been taking Advil quite frequently alternating with Tylenol due to the significant amount of pain. He notes that he has been taking stool softeners and a bowel regimen to keep himself
regular and was moving his bowels nearly daily. He notes that he has had decreased p.o. intake along with nausea as well. He does admit that he is on Wegovy and this has led him to intentional weight loss. He does admit to some tenderness in the
mid to right upper abdomen. He denies any significant vomiting. He admits to very rare alcohol use and medical marijuana use as needed for pain. Blood thinner has been on hold for several days now due to his planned procedure with Dr. Ralph Manzanares"today. He denies any prior colonoscopy but did have a endoscopy in 2018 which was normal. He otherwise denies any chills, dysphagia, odynophagia, hematemesis, diarrhea, chest pain, or shortness of breath. He does note that due to all of the
ongoing problems he has been having he has been somewhat depressed but the Valium seems to help with this. Routine labs on admission were essentially unrevealing with no significant anemia, leukocytosis, or abnormal kidney function. He was started
on twice daily PPI IV, IV fluids, and admitted for further evaluation by GI and colorectal surgery.
Past Medical History
Past Medical History: HTN, Hypercholesterolemia, IDDM, Psychiatric (Depression) and Other (Factor V Leiden with history of DVT on Xarelto, anal fissure with development of rectal abscess status post fistulotomy/I&D/sphincterotomy/EUA with colorectal
surgery)
Past Surgical History: Cholecystectomy, Orthopedic (Numerous left ankle surgeries), Urological (Testicular surgery) and Other (Rectal abscess with fistula s/p I&D/sphincterotomy/fistulotomy, bilateral carpal tunnel release)
Social History
Tobacco: Former Smoker (Quit in 2000)
Alcohol: Other (Infrequent)
Drug: Marijuana (Medical use)
Family History
Family History: Reviewed & Not Pertinent
Allergies / Home Medications
Allergy/AdvReac Type Severity Reaction Status Date / Time
adhesive Allergy Hives Verified 08/05/23 13:14
azithromycin [From Zithromax] Allergy Unresponsiv Verified 08/05/23 13:14
e
bee venom protein (honey bee) Allergy Swelling Verified 08/05/23 13:14
coconut Allergy Throat Verified 08/05/23 13:14
swelling
latex Allergy swelling Verified 08/05/23 13:14
and rash
pseudoephedrine AdvReac double Verified 08/05/23 13:14
vision
�Medication �Instructions �Recorded
rivaroxaban 20 mg tablet (Xarelto) 20 mg PO DAILY Blood clot 11/09/17
prevention/tx
atorvastatin 10 mg tablet 10 mg PO DAILY High cholesterol 08/09/20
dapagliflozin propanediol 5 mg 5 mg PO DAILY Diabetes 08/09/20
tablet (Farxiga)
dibucaine 1 % rectal ointment 1 applic RI TID PRN rectal 06/25/23
discomfort #56 grams
diazepam 5 mg tablet 5 mg PO Q6HPRN PRN anal spasms 08/05/23
insulin glargine 100 unit/mL (3 36 unit SC HS 08/05/23
mL) subcutaneous pen (Lantus
Solostar U-100 Insulin)
levofloxacin 750 mg tablet 750 mg PO HS 08/05/23
metronidazole 500 mg tablet 500 mg PO TID 08/05/23
semaglutide (weight loss) 1 mg/0.5 1 mg SC SA@0800 08/05/23
mL subcutaneous pen injector
(Wegovy)
Review of Systems
-
History Source: Patient
Constitutional: Reports Fever and Weight Loss (Intentional)
EENT: Reports No Symptoms
Respiratory: Reports No Symptoms
Cardiac: Reports No Symptoms
Abdomen/GI: Reports Abdominal Pain (Mid to right upper abdomen ), Bloody Stools, Black Stools and Other (Rectal pain/spasm)
: Reports No Symptoms
Musculoskeletal: Reports No Symptoms
Skin: Reports No Symptoms
Neurological: Reports Dizzy
Vital Signs
Temp Pulse Resp BP Pulse Ox
97.2 F 78 19 123/70 96
08/06/23 07:30 08/06/23 07:30 08/06/23 07:30 08/06/23 07:30 08/06/23 07:30
Physical Exam
Exam
General: Well Developed, Well Nourished and No Apparent Distress
HEENT: Normocephalic, Anicteric and Atraumatic
Respiratory: Clear
Cardiac: S1/S2 and Regular Rhythm
Breast: Deferred by me
GI: Soft, Non Distended, Normal Bowel Sounds and Tender (+TTP mid/right upper abdomen)
Rectal: Deferred by Provider
Musculoskeletal: No Edema
Skin: Warm and Dry
Neuro: Awake, Alert and Oriented
Psych: Calm
Results
WBC 7.7 10^3/uL (4.8-10.8) 08/06/23 05:25
Hgb 16.3 g/dL (13.0-18.0) 08/06/23 05:25
Hct 46.6 % (39.0-52.0) 08/06/23 05:25
MCV 86.6 fL (80.0-94.0) 08/06/23 05:25
Plt Count 171 10^3/uL (130-400) 08/06/23 05:25
Absolute Neuts (auto) 3.8 10^3/uL (1.4-6.5) 08/05/23 13:23
PT 13.4 Sec (11.4-14.6) 08/05/23 13:24
INR 1.04 08/05/23 13:24
APTT 27.4 Sec (23.4-35.0) 08/05/23 13:24
Sodium 137 mmol/L (135-145) 08/06/23 05:25
Potassium 4.4 mmol/L (3.5-5.1) 08/06/23 05:25
Chloride 106 mmol/L (98-107) 08/06/23 05:25
Carbon Dioxide 26 mmol/L (22-30) 08/06/23 05:25
BUN 16 mg/dl (9-20) 08/06/23 05:25
Creatinine 1.0 mg/dL (0.7-1.3) 08/06/23 05:25
Calcium 9.1 mg/dl (8.4-10.2) 08/06/23 05:25
Total Bilirubin 0.4 mg/dl (0.2-1.3) 08/05/23 13:24
AST 28 U/L (17-59) 08/05/23 13:24
ALT 58 U/L (0-50) H 08/05/23 13:24
Alkaline Phosphatase 87 U/L (38-126) 08/05/23 13:24
Diagnostic Image Results:
06/30/2023 CT pelvis: 'Fullness involving the perianal soft tissues in this patient with history of recent surgery for anal fissure repair. There is no evidence for abscess.'
Prior GI Procedures:
EGD: 11/13/2017, Dr. Ruth: The examined esophagus was normal. The Z-line was regular and was found 40 cm from the incisors. The entire examined stomach was normal. The cardia and gastric fundus were normal on retroflexion. The examined duodenum
was normal.
Colonoscopy: none
Assessment / Plan
-
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
evaluation of rectal bleeding, which we are being asked to evaluate for. He is known to Dr. Jenkins in our office referred to the ER on 08/04 for ongoing symptomatic melena/bright red blood per rectum with history as noted above for ongoing rectal
pain secondary to perianal abscess status post multiple surgical interventions. He is being followed by colorectal surgery. He admits to increased use of NSAIDs for pain management with onset of melena several weeks ago, although here with stable
hemoglobin and normal BUN. He was placed on twice daily PPI. He is pending OR evaluation today again with colorectal surgery for EUA, flex sig, and possible I&D of perianal abscess. His Xarelto has been on hold.
Problem list:
-Melena/bright red blood per rectum
-Mid/RUQ abdominal pain
-Nausea
-Recent diagnosis of perianal abscess with fistulotomy and I&D/sphincterotomy
-Recent increased NSAID use
-Factor V Leiden with history of DVT on chronic Xarelto
Other pertinent medical hx:
-Hypertension
-Insulin-dependent diabetes
-Hyperlipidemia
Recommendations:
-Etiology of melena possibly secondary to acute upper GI bleed given his recent increased use of NSAIDs (?PUD) versus secondary to perianal abscess versus other. Bright red blood per rectum may be secondary to ongoing problems with his perianal
abscess.
---Reassuringly his hemoglobin is normal and is having no signs of active bleeding currently. He is hemodynamically stable.
-Plan for OR with colorectal surgery today for EUA, flex sig, possible I&D if indicated as per their notes
-From a GI standpoint, will plan for EGD +/- colonoscopy. Will review with Dr. Burt/Dr. Jenkins.
-Continue PPI IV BID
-PRN analgesics as per hospitalist (AVOID NSAID's)
-Monitor H/H
-Continue to hold Xarelto
-NPO for now pending OR
-PRN antiemetics
-Will follow
Data Reviewed
-
Old Records: Reviewed
-
-
Thank you for consultation and allowing me to participate in the patient's care. Please call the head of operation and logistics GI physician during the after hours with any questions or concerns.
[2023-08-06] MEDS: LIPITOR 10 MG PO (08:28)
[2023-08-06] MEDS: PROTONIX IV 40 MG IV ×2 (08:28→21:09)
[2023-08-06] MEDS: NSS (PRESERVATIVE FREE) 10 ML IV ×2 (08:29→21:09)
--- NOTE | 2023-08-06 08:38 | W.PN.HOSP.TC ---
Today's Communication/Plan
-
NPO for exam under anesthesia with flexible sigmoidoscopy with possible I&D of an abscess
ok for PO Tylenol for headache, d/w surgical service
GI to plan workup for tomorrow
Assessment / Plan
Assessment / Plan
Assessment:
GI bleed with dark stools, rectal bleeding exacerbated by Xarelto
- monitor Hb
- IV PPI BID
- GI Consulting; follow recs
- likely EGD +/- Colonoscopy 08/06
history of perianal abscess
- previously 06/23 had an EUA and I&D of abscess/fistulotomy, also 07/15 EUA and debridement of the left anterior wound and a bilateral pudendal nerve block.
- NPO for exam under anesthesia with flexible sigmoidoscopy with possible I&D of an abscess
- continue pain control
- follow Colorectal recs
Factor V Leiden with hx of DVT 2021
- hold Xarelto for above evaluations/procedures
HLD - statin
Type 2 DM
- hold Farxiga
- continue Lantus, give 20 units qpm while ramona-procedure (usual dose 36)
- SSI
Hx of Migraine
- prn Imitrex
Obesity due to excess calories
DVT ppx: SCDs
Code: Full
Anticipated Discharge: > 48 hours
Subjective/Interval History
-
Date of Service: August 06, 2023
reports headache, similar to prior migraines
Objective Data
-
Labs:
Laboratory Results
08/06/23
05:25
WBC 7.7
Hgb 16.3
Hct 46.6
Plt Count 171
Sodium 137
Potassium 4.4
Chloride 106
Carbon Dioxide 26
BUN 16
Creatinine 1.0
Glucose 126 H
Calcium 9.1
Vital Signs:
Vital Signs
Temp Pulse Resp BP Pulse Ox
97.2 F 78 19 123/70 96
08/06/23 07:30 08/06/23 07:30 08/06/23 07:30 08/06/23 07:30 08/06/23 07:30
I&O
08/05/23 08/06/23 08/07/23
06:59 06:59 06:59
Intake Total 1190 / 1190
Output Total 500 / 500
Balance 690 / 690
Physical Exam
-
General: No Apparent Distress
HEENT: Normocephalic and Atraumatic
Respiratory: Negative Wheezes
Cardiac: Regular Rhythm and S1/S2
GI: Soft
Neuro: AO x 3
Psych: Calm
Data Reviewed
-
Total Time Spent with Patient (in minutes): 42
Labs: Labs Reviewed by me
[2023-08-06 08:40] LABS: Glucose - Point of Care 133 mg/dl (70-99)
[2023-08-06 08:44] LABS: Glycohemoglobin (HgbA1c) 7.9 % (4.0-5.6)
[2023-08-06] MEDS: TYLENOL 1000 MG PO (09:32)
--- NOTE | 2023-08-06 09:42 | W.PN.UPDATE ---
Update Note
Progress Note Update
See my addendum to colorectal consult note yesterday; consult note signed today
[2023-08-06 12:47] LABS: Glucose - Point of Care 92 mg/dl (70-99)
[2023-08-06] MEDS: OFIRMEV 100 IV (13:09)
--- NOTE | 2023-08-06 13:50 | CS.PSYCHR ---
Consult Summary - Psychiatry
-
Pt is a 43 yo male with PMH significant for Factor V Leiden and hx of DVT, maintained on Xarelto, IDDM, HTN, HLD, recent dx perianal abscess S/P fistulotomy, who presented to the ED referred by GI doctor for evaluation of rectal bleeding- bright red
blood as well as melena for the past 2 weeks. He has been followed by colorectal surgery with 2 recent procedures for anal fissure and concern for abscess formation. Pt c/o persistent pain that wakes him during the night, as well as pain with bowel
movements, states he is not able to go out, has missed work and his job is at risk. Pt has been alternating Advil and Tylenol for pain. Valium was added with some benefit. He noted decreased p.o. intake along with nausea. Pt also noted to be on
Wegovy for weight loss.
Psychiatry asked to evaluate due pt endorsing suicidal ideation on screening assessment. He reports recent passive thoughts of suicide associated with ongoing pain from above medical issues- persistent for the past 2 months. Pt c/o feeling down,
unable to work or do his usual activities. Pt denies feeling depressed before onset of medical problems. He denies active suicidal plan or intent, remains hopeful his medical condition will clear up. Pt has procedures later today and tomorrow for
further eval and treatment.
Psych Hx: denies any prior treatment. Pt had some depression and superficial self-injury (cutting) in high school. Denies prior depressive episode as an adult
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
Pt reports very rare alcohol use and medical marijuana use as needed for pain.
MSE: alert and oriented, calm and cooperative, engaging with good eye contact. Affect appropriate, mood mildly depressed, outlook hopeful. Speech coherent, thought goal-directed. Denies current SI. No signs of psychosis. Insight fair
Imp: Unspecified depression, situational reaction, with most of symptoms brought on by his medical problems
Rec: supportive therapy; consider trial of antidepressant pending outcome/findings today and tomorrow. Will have to review potential bleeding risk- a rare issue on first-line antidepressants. Need to avoid agents that can cause constipation
Continue Diazepam as needed- will help with anxiety as well as muscle spasms. Outpatient follow-up when medically stable.
Psychiatry will follow
--- NOTE | 2023-08-06 13:59 | CM ---
Patient seen bedside.
IA completed.
Patient lives with spouse and 3 kids in a 2 story home with 3 steps to enter.
Patient drives, currently out of work.
Patient with hx depression and admitted suicidal thoughts but no plan.
Psych following.
PCP: Dr Macias
Pharmacy: [facility]
Plan: home no needs anticiapted.
--- NOTE | 2023-08-06 17:03 | W.IMMPOSTOP ---
Surgical Immed Post Op Note
-
Primary Surgeon: Jean Carlos Rosas MD
Assisting Surgeon: none
Pre-op Diagnosis: anal pain
Post-op Diagnosis: PML anal fissure
Procedure Performed: EUA, injection of botox, rigid proctosigmoidoscopy, bilateral pudendal nerve block
Anesthesia Type: MAC with local
Specimen / Cultures: none
Estimated Blood Loss: 5mL
Complications: none
Operative Findings: no evidence of infection, 7mm PML anal fissure; injected botox; performed rigid procto with no obvious findings up to 15cm
[2023-08-06 17:14] LABS: Glucose - Point of Care 95 mg/dl (70-99)
--- NOTE | 2023-08-06 18:00 | OR.RPT ---
Operative Report
Operative Report
DATE OF OPERATION: 08/06/2023
SURGEON: Jean Carlos Rosas MD
PREOPERATIVE DIAGNOSIS: Anal pain
POSTOPERATIVE DIAGNOSIS: Posterior midline anal fissure
OPERATION: Exam under anesthesia, Botox injection into the internal anal sphincter, rigid proctosigmoidoscopy, bilateral pudendal nerve block
ASSISTANTS:
1. None
ANESTHESIA: MAC w/ local
ESTIMATED BLOOD LOSS: None mL
FINDINGS:
1. Posterior midline fissure about 1 cm in length and about 7 mm wide
2. No evidence of infection, no significant hemorrhoidal disease; advanced rigid proctosigmoidoscopy to about 15 cm and no obvious pathology in the rectum
SPECIMENS:
1. None
DRAINS: None
COMPLICATIONS: None
INDICATIONS: The patient is a 43-year-old male who initially had a posterior midline fissure and underwent right lateral internal sphincterotomy on 06/24/2023. This was complicated by an intersphincteric abscess in the left anterior position and
underwent an incision and drainage with fistulotomy on 07/01/2023. He improved, but developed recurrent perianal pain. He underwent another EUA on 07/16, but no obvious pathology was noted at that time. He was treated with 1 week of antibiotics and
the pain improved. He then developed perianal pain again and was seen in the office on 08/01, where a complete anorectal exam was not tolerated due to pain but the posterior midline fissure was visible and significantly tender. I initiated
nifedipine cream with lidocaine and p.o. Valium for anal spasm. However, he did not improve. Therefore, the patient was recommended to undergo another EUA to rule out possible abscess. The operation was discussed with the patient in detail,
including the risks, benefits and alternatives. Risks described included, but not limited to bleeding, infection, urinary retention, damage to nearby structures such as the anal sphincter, fecal incontinence, anal stenosis, recurrence, and
anesthetic risks. The patient understood and agreed to proceed. The consent was signed and placed in the chart.
PROCEDURE IN DETAIL: The patient was taken to the operating room and placed on the operating table in prone position. Sequential compression devices were placed bilaterally. Sedation was commenced without complication. Two seat belts were secured
around the legs and upper back. The buttocks were taped apart. The perineum was prepped and draped in the usual fashion. A time-out was then performed verifying the correct patient, procedure, operative site, positioning, and special equipment.
Local anesthesia used was a mixture of 60 mL of 0.25% Marcaine without epinephrine (with epinephrine was on backorder) and 0.6 mg of dexamethasone. 40 mL was injected perianally at the beginning of the case. The anorectal exam was performed
assessing all four quadrants of the anal canal using Hill-Elizalde retractors in progressively increasing size. There was a visible posterior midline fissure about 1 cm in length and 7 mm wide that appeared acute. This was slightly smaller than the
previous surgery from 07/16. The remainder of the anal canal was without pathology. The right lateral incision from his sphincterotomy on 06/30 had completely healed and there was only a scar left. The left anterior wound from his incision and
drainage on 07/16 had all but healed except for a 1 cm x 2 mm wound without erythema or purulent drainage. He did not have any swollen, bleeding or irritated internal hemorrhoids. There were no external hemorrhoids. There was no fluctuance along
the length of the anal canal or in the perianal region. Upon palpating the entire circumference of the anal canal, no purulent drainage was visible. An 18-gauge needle with 10 cc syringe was used to insert while aspirating in 6 quadrants around
the anal canal and the ischiorectal space as well as in the location of the right lateral scar and left anterior wound and no purulent drainage was noted.
Therefore, the only pathology that could be causing his perianal pain is the posterior midline fissure, possibly due to recurrence. The internal sphincter was slightly taut with the largest Hill-Elizalde. Therefore, I elected to proceed with the
Botox injection. 100 units of Botox was mixed with 2 mL of saline. A third of the Botox was injected in the anterior midline internal sphincter, left lateral internal sphincter and at the posterior midline internal sphincter. I did not inject any
in the right lateral position as this was where I performed the internal sphincterotomy. The anal canal was then irrigated and hemostasis was confirmed. The remaining 20 mL of local were injected. 5 mL was injected bilaterally for a pudendal nerve
block. 10 mL was injected around the surgical site and perianally. I then used a lighted rigid proctosigmoidoscope to evaluate the anorectum. The obturator and proctosigmoidoscope were introduced transanally with lubrication and advanced to about
5 cm. The obturator was then removed. The rectum was then insufflated under direct visualization and the proctosigmoidoscope was advanced to about 15 cm. The proctosigmoidoscope was then slowly withdrawn evaluating the rectum in all 4 quadrants.
No obvious pathology was noted. The proctosigmoidoscope was then removed.
At this point, the procedure was complete. All needle, sponge and instrument counts were correct. The patient tolerated the procedure well and was transferred to the recovery room in stable condition with gauze dressing in place secured with silk
tape.
DICTATED BY: Jean Carlos Rosas MD
[2023-08-06 18:31] LABS: Glucose - Point of Care 117 mg/dl (70-99)
[2023-08-06 21:08] LABS: Glucose - Point of Care 166 mg/dl (70-99)
[2023-08-06] MEDS: DULCOLAX 10 MG PO (21:08)
[2023-08-06] MEDS: NULYTELY SOLUTION 4 LITERS PO (21:08)
[2023-08-06] MEDS: LANTUS 0.200000000000000011 UNITS SC (21:09)
--- NOTE | 2023-08-07 00:21 | W.PN.UPDATE ---
Update Note
Progress Note Update
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 Patient seen and addressed the matter. Patient is Ox3, and is able to make own decisions. Risks and benefits explained. advised the reasoning of getting EGD/colonoscopy done.
Patient stated he can get it done outpatient as he feels better. AMA paper explained, signed and in chart.
--- NOTE | 2023-08-07 00:27 | PTCARENOTE ---
Pt given Nulytely solution to drink as ordered. Upon taking sip pt stated, 'I am not drinking this I will leave right now.' Pt requested to leave AMA stating, 'there is no reason to stay if I won't be able to do the procedure tomorrow since I will
not drink this prep.' DOCTOR CHIROPRACTIC Anh Schmitt notified. DOCTOR CHIROPRACTIC spoke to pt, pt still requesting to leave. Sheeter Operator notified. AMA paperwork filled out, left wrist IV taken out and all pt belongings taken with pt. Pt c/o 0/10 pain, pt in no acute distress,
respirations regular. Pt walked down to ED by food writer, pt picked up by [employer] without incident.
== END 2023-08-06 23:55 | disposition left against medical advice (07) | DRG 378 ==
LOC: 4 WEST ACU 17:56
PROVIDERS: Emergency Medicine; Registered Nurse; ADMITTING PHYSICIAN Internal Medicine; CONSULT PHYSICIAN Internal Medicine Gastroenterology; CONSULT PHYSICIAN Psychiatry & Neurology Psychiatry; CONSULT PHYSICIAN Surgery; EMERGENCY PHYSICIAN Emergency Medicine; FAMILY PHYSICIAN Family Medicine
PROC: 3E0H7GC Introduction of Other Therapeutic Substance into Lower GI, Via Natural or Artificial Opening (ICD-10-PCS; 2023-08-06)
PROC: 0DJD8ZZ Inspection of Lower Intestinal Tract, Via Natural or Artificial Opening Endoscopic (ICD-10-PCS; 2023-08-06)
DX: K92.2 Gastrointestinal hemorrhage, unspecified (principal); D68.32 Hemorrhagic disorder due to extrinsic circulating anticoagulants; D68.51 Activated protein C resistance; K60.0 Acute anal fissure; E11.9 Type 2 diabetes mellitus without complications; E66.09 Other obesity due to excess calories; E78.00 Pure hypercholesterolemia, unspecified; Z68.33 Body mass index [BMI] 33.0-33.9, adult; Z86.718 Personal history of other venous thrombosis and embolism
CPT/HCPCS: 80048; 80053; 82962; 83036; 85025; 85027; 85610; 85730; 86850; 86900; 86901; 93005; 99285; J0585

== ENCOUNTER → 2024-05-29 16:04 | Outpatient (REF) | payer OTHER, SELFPAY | LOC: RAD 16:04 | PROVIDERS: ATTENDING PHYSICIAN Physician Assistant; FAMILY PHYSICIAN Family Medicine | DX: R07.89 Other chest pain (principal); D68.51 Activated protein C resistance | CPT/HCPCS: 71275; Q9967 ==

== ENCOUNTER → 2024-06-09 10:15 | Outpatient (REF) | payer OTHER, SELFPAY | LOC: RAD 10:15 | PROVIDERS: ATTENDING PHYSICIAN Family Medicine | DX: R07.89 Other chest pain (principal) | CPT/HCPCS: 71111 ==

== ENCOUNTER → 2024-08-18 07:47 | Outpatient (REF) | payer OTHER, SELFPAY | LOC: RCS 07:47 | PROVIDERS: ATTENDING PHYSICIAN Family Medicine | DX: R00.0 Tachycardia, unspecified (principal); R07.89 Other chest pain | CPT/HCPCS: 93225; 93226 ==

== ENCOUNTER → 2024-08-20 15:47 | Outpatient (REF) | payer OTHER, SELFPAY | LOC: RCS 15:47 | PROVIDERS: ATTENDING PHYSICIAN Family Medicine | DX: R00.0 Tachycardia, unspecified (principal); R07.89 Other chest pain | CPT/HCPCS: 93306 ==

== ENCOUNTER → 2024-12-31 16:58 | Outpatient (REF) | payer OTHER, SELFPAY | LOC: RAD 16:58 | PROVIDERS: ATTENDING PHYSICIAN Physician Assistant; FAMILY PHYSICIAN Family Medicine | DX: R10.23 Pelvic and perineal pain bilateral (principal); N40.0 Benign prostatic hyperplasia without lower urinary tract symptoms; N20.0 Calculus of kidney | CPT/HCPCS: 76770 ==

== ENCOUNTER → 2025-01-18 13:49 | Outpatient (REF) | payer OTHER, SELFPAY | LOC: HWRAD 13:49 | PROVIDERS: ATTENDING PHYSICIAN Specialist; FAMILY PHYSICIAN Family Medicine | DX: N20.1 Calculus of ureter (principal); N20.0 Calculus of kidney | CPT/HCPCS: 74176 ==

== ENCOUNTER 2025-02-03 09:02 | Emergency (ER) | payer OTHER, SELFPAY ==
[2025-02-03] VITALS (7 sets, daily range): BP systolic 112–157; BP diastolic 88–110; BMI 31.0
--- NOTE | 2025-02-03 09:27 | ED.GENMED ---
History of Present Illness
General
Chief Complaint: Back Pain
Source: patient
Exam Limitations: none
Time Seen by Provider: 02/03/25 09:10
Nursing documentation reviewed up to this point in time: agreed with
History of Present Illness
History of Present Illness:
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 After initial injury, patient rested for the rest of the day at home. Patient was able to see his primary care physician yesterday for an evaluation. Unfortunate last night, pain became worse and noticed 'leakage of stool' in his underwear,
without having any urge to have bowel movement. Denies loss of sensation. Denies weakness. Patient is able to ambulate, but with extreme difficulty due to pain. Denies fever or chills. Patient medical history significant for previous DVT with
underlying factor V Leiden deficiency, for which he is on lifelong therapy of Xarelto. Patient did not take dose of Xarelto this morning.
Past History
Past History
ED Past Medical History: Asthma, IDDM, Other (PNA, DVT, Renal calculus, Factor V leiden, ) and Other (DVT factor V Leiden, DVT, chronically maintained on Xarelto)
ED Past Surgical History: Cholecystectomy, Orthopedic (Left foot surgery, Left ankle surgery, Right carpal tunnel Left wrist/hand surery. ), Urological (Undescended testicle repair as infant) and Other (Anal fissure repair ); Negative Appendectomy
or Bowel resection
Social History
Tobacco: Former smoker
Alcohol: None
Drug: None
Personal:
Living: with family
Employment: Employed
Family History
Family History: Hypertension and Other (Gallbladder disease)
Review of Systems
Review of Systems
Allergies reviewed?: Yes
All Other Systems: ROS reviewed and negative except as documented in HPI and ROS
Constitutional: Reports no symptoms; Denies fever
Respiratory: Reports no symptoms
Cardiac: Reports no symptoms
ABD/GI: Reports no symptoms; Denies vomiting
: Reports other (stool incontinence)
Musculoskeletal: Reports back pain; Denies neck pain
Skin: Reports no symptoms
Neurological: Denies dizzy, headache, weakness or numbness
Phy Exam
Physical Exam
Physical Exam:
Physical Exam
General: moderate painful distress, not acutely ill. afebrile
Head: nc/at. eomi
Neck: supple. no meningeal signs
Heart: s1/s2 regular rate and rhythm
Lungs: no acute respiratory distress. clear bilaterally
Abdomen: normal bowel sounds. not tender.
Back: diffuse lower back tenderness to palpation, at level of L4/5, with positive straight leg raise. normal sensation.
Neuro: alert and oriented x 3. no focal neurological deficits
Skin: no rash
Psychiatric: well kept. interactive and cooperative
Extremities: no edema. no calf tenderness.
Course
Orders/Labs/Results
Orders:
Orders
02/03/25 09:33
MR Lumbar Without Contrast Urgent
Comment:
Reason For Exam: lower back pain w incontinence
OK for patient to be off Cardiac Monitoring for MRI: Yes
Recent pill cam endoscopy?: No
02/03/25 09:35
Dexamethasone Sod Phosphate [Decadron] 10 mg IV NOW STA
Oxycodone/Acetaminophen [Percocet 5/325] 1 tablet PO NOW STA
diazePAM [Valium Injection] 2 mg IV NOW STA
02/03/25 09:36
Acetaminophen [Tylenol] 1,000 mg PO NOW STA
02/03/25 09:45
Basic Metabolic Panel Urgent
CBC/With ESR Urgent
CRP [C-Reactive Protein] Urgent
02/03/25 10:24
HYDROmorphone [Dilaudid] 1 mg IV NOW STA
02/03/25 14:03
HYDROmorphone [Dilaudid] 0.5 mg IV NOW STA
Abnormal Lab Results
02/03/25
09:45
Absolute Monos (auto) 0.7 H 10^3/uL
(0.1-0.6)
Chloride 110 H mmol/L
(98-107)
Glucose 120 H mg/dl
(70-99)
02/03/25 09:45
02/03/25 09:45
Vital Signs
Initial and Last Documented VS:
Initial Vital Signs
Temp Pulse Resp BP Pulse Ox
98.0 F 88 18 157/110 97
02/03/25 09:03 02/03/25 09:03 02/03/25 09:03 02/03/25 09:03 02/03/25 09:03
Last Documented Vital Signs
Temp Pulse Resp BP Pulse Ox
98.0 F 75 18 112/99 93
02/03/25 09:03 02/03/25 15:00 02/03/25 09:03 02/03/25 15:00 02/03/25 14:15
MDM/Problems Addressed
MDM/Problems Addressed:
History and exam concerning for potential cauda equina syndrome. As such, decision made to obtain MRI lumbar spine in ED.
MRI report reviewed and discussed with patient.
Patient reports improvement symptoms after treatment. Patient otherwise remains afebrile, hemodynamically stable, and grossly neurologically intact. Patient feels comfortable going home at this time with aforementioned MRI findings, and will
follow-up with orthopedic surgeon as an outpatient. Patient will be discharged home to the care of his , with return precautions provided, i.e. fever/weakness/incontinence/worsening pain.
*Pulse Oximetry
SaO2: 97
Oxygen Mode of Delivery: Room air
Patient hypoxic: no
*Critical Care Note
Total Time (30-74mins, 75-104mins- exclusive of procedures): Not Applicable
ED Attending Note
-
Portions of this chart may have been created with voice recognition software.� Occasional wrong word or��sound alike� substitutions may have occurred due to the inherent limitations of voice recognition software.
Discharge Plan
Departure
Patient Disposition: Home (Routine Discharge)
Date of Disposition: 02/03/25
Time of Disposition: 14:04
Patient with high blood pressure during this ER visit?: Yes
Condition: Fair
Discharge Problem:
Back pain
Instructions: Low Back Pain (DC)
Prescriptions:
New
methylprednisolone [Medrol (Leo)] 4 mg tablets,dose pack
4 mg PO DAILY Qty: 21 0RF
Rx Instructions:
As directed
cyclobenzaprine 10 mg tablet
10 mg PO TIDPRN PRN (Reason: muscle spasm) Qty: 20 0RF
tramadol 50 mg tablet
50 mg PO Q8H PRN (Reason: Pain) Qty: 20 0RF
No Action
Xarelto 20 MG tablet
20 mg PO DAILY
atorvastatin 10 MG tablet
10 mg PO DAILY
dapagliflozin propanediol [Farxiga] 5 MG tablet
5 mg PO DAILY
dibucaine 1 % ointment
1 applic AL TID PRN (Reason: rectal discomfort) Qty: 56 0RF
metronidazole 500 mg Tablet
500 mg PO TID
Patient Comments:
08/05/2023, filled on 08/02/2023 and instructed to take one tablet TID for 7 days.
levofloxacin 750 mg Tablet
750 mg PO HS
Patient Comments:
08/05/2023, filled on 08/02/2023 and instructed to take one tablet daily for 4 days.
diazepam 5 mg Tablet
5 mg PO Q6HPRN PRN (Reason: anal spasms)
insulin glargine [Lantus Solostar U-100 Insulin] 100 unit/mL (3 mL) Insulin Pen
36 unit SC HS
Wejesusvy 1 mg/0.5 mL Pen Injector
1 mg SC SA@0800
Referrals:
Muna Macias MD [Family Provider, Family Practice]
Braxton Uribe MD [Active, Orthopedics]
Activity Restrictions/Additional Instructions:
As discussed, please follow-up with your primary care physician and/or referred orthopedic surgeon for further evaluation and treatment. Please consider return to ED with worsening symptoms, i.e. fever/urinary or bowel incontinence/weakness. Your
prescriptions have been sent electronically to [facility] pharmacy in [place]
Interventions
Interventions:
*Risk Screen - Suicide Last Done: 02/03/25 09:03
*General Assessment Last Done: 02/03/25 09:03
*Neglect/Abuse Screening Last Done: 02/03/25 10:15
*ED COVID-19 Vaccine History Last Done: 02/03/25 10:15
*ED Influenza Vaccine History Last Done: 02/03/25 10:15
*Nursing Disposition Last Done: 02/03/25 15:32
ED-Musculoskeletal Assessment Last Done: 02/03/25 10:15
Discharge Date and Time
Print Language: AFGHAN
[2025-02-03] MEDS: PERCOCET 5/325 1 TABLET PO (09:50)
[2025-02-03] MEDS: TYLENOL 1000 MG PO (09:50)
[2025-02-03] MEDS: DECADRON 10 MG IV (09:55)
[2025-02-03] MEDS: VALIUM INJECTION 2 MG IV (09:56)
[2025-02-03 10:12] LABS: Hematocrit 47.5 % (39.0-52.0); Hemoglobin 16.1 g/dL (13.0-18.0); Mean Corp Hgb Conc. 33.9 g/dL (33.0-37.0); Mean Corpuscular Volume 90.0 fL (80.0-94.0); Nucleated Red Blood Cells % 0 % (-); Platelet Count 173 10^3/uL (130-400); Red Cell Dist. Width 12.2 % (11.5-14.5)
[2025-02-03 10:17] LABS: Blood Urea Nitrogen 18 mg/dl (9-20); Calcium 9.1 mg/dl (8.4-10.2); Carbon Dioxide 22 mmol/L (22-30); Chloride 110 mmol/L (98-107); Glucose 120 mg/dl (70-99); Potassium 4.3 mmol/L (3.5-5.1); Sodium 141 mmol/L (135-145); eGFR > 60.00
[2025-02-03 10:21] LABS: C-Reactive Protein < 5.00 mg/L (0.0-10.00)
[2025-02-03] MEDS: DILAUDID 1 MG IV (10:43)
[2025-02-03] MEDS: DILAUDID 0.5 MG IV (15:02)
== END 2025-02-03 16:04 | disposition home or self-care (01) ==
LOC: EMR 09:02
PROVIDERS: EMERGENCY PHYSICIAN Emergency Medicine; FAMILY PHYSICIAN Family Medicine
DX: M54.50 Low back pain, unspecified (principal); J45.909 Unspecified asthma, uncomplicated; E11.9 Type 2 diabetes mellitus without complications; D68.51 Activated protein C resistance; Z79.01 Long term (current) use of anticoagulants; Z79.4 Long term (current) use of insulin; Z86.718 Personal history of other venous thrombosis and embolism; Z87.891 Personal history of nicotine dependence; Z87.828 Personal history of other (healed) physical injury and trauma
CPT/HCPCS: 96374; 96375; 96376; 99284; 72148; 80048; 85025; 85652; 86140

== ENCOUNTER 2025-03-24 05:58 | Day surgery (SDC) | payer OTHER, SELFPAY ==
[2025-03-24] VITALS (7 sets, daily range): BP systolic 115–127; BP diastolic 82–94; BMI 30.1
[2025-03-24] MEDS: NORMOSOL-R/PLASMALYTE-A 1000 IV (06:26)
[2025-03-24 06:32] LABS: Glucose - Point of Care 156 mg/dl (70-99)
[2025-03-24 08:44] LABS: Glucose - Point of Care 143 mg/dl (70-99)
[2025-03-24] MEDS: ROXICODONE 5 MG PO (10:15)
== END 2025-03-24 11:05 | disposition home or self-care (01) ==
LOC: SDS 05:58
PROVIDERS: ATTENDING PHYSICIAN Specialist
DX: N20.0 Calculus of kidney (principal); R31.0 Gross hematuria
CPT/HCPCS: 52356; 74018; 76000; 82962; C2617

== ENCOUNTER 2025-03-26 09:23 | Inpatient (IN) | payer OTHER, SELFPAY ==
[2025-03-24 18:11] VITALS: BP 143/95
[2025-03-24 18:31] LABS: Hematocrit 46.4 % (39.0-52.0); Hemoglobin 16.4 g/dL (13.0-18.0); Mean Corp Hgb Conc. 35.3 g/dL (33.0-37.0); Mean Corpuscular Volume 85.5 fL (80.0-94.0); Nucleated Red Blood Cells % 0 % (-); Platelet Count 176 10^3/uL (130-400); Red Cell Dist. Width 11.9 % (11.5-14.5)
[2025-03-24 18:46] LABS: ALT (SGPT) 40 U/L (0-50); AST (SGOT) 28 U/L (17-59); Albumin 4.4 g/dl (3.5-5.0); Alkaline Phosphatase 68 U/L (38-126); Blood Urea Nitrogen 17 mg/dl (9-20); Calcium 9.3 mg/dl (8.4-10.2); Carbon Dioxide 20 mmol/L (22-30); Chloride 104 mmol/L (98-107); Glucose 263 mg/dl (70-99); Potassium 4.8 mmol/L (3.5-5.1); Sodium 131 mmol/L (135-145); Total Protein 7.4 g/dl (6.3-8.2); eGFR > 60.00
--- NOTE | 2025-03-24 20:31 | ED.GENMED ---
History of Present Illness
General
Chief Complaint: Post Operative Problem(s)
Time Seen by Provider: 03/24/25 20:13
History of Present Illness
History of Present Illness:
Patient is a 45-year-old man with history of factor V Leiden on Xarelto, kidney stones with stents placed this morning presenting to the emergency department with worsening left-sided flank pain. States that after his procedure he had significant
pain and was near syncopal when using the bathroom. He was still discharged. Since being discharged he has been having worsening pain. He does feel lightheaded dizzy about to pass out with any urination. He does have significant blood from his
urine. He has held his Xarelto for the past few days for the procedure. No fevers or chills. He does have left-sided flank pain. He states that last time he had stents he removed them himself as he had strains and secondary to the pain
Past History
Past History
ED Past Medical History: Asthma, IDDM, Other (PNA, DVT, Renal calculus, Factor V leiden, ) and Other (DVT factor V Leiden, DVT, chronically maintained on Xarelto)
ED Past Surgical History: Cholecystectomy, Orthopedic (Left foot surgery, Left ankle surgery, Right carpal tunnel Left wrist/hand surery. ), Urological (Undescended testicle repair as infant) and Other (Anal fissure repair ); Negative Appendectomy
or Bowel resection
Social History
Tobacco: Former smoker
Alcohol: None
Drug: None
Personal:
Living: with family
Employment: Employed
Family History
Family History: Hypertension and Other (Gallbladder disease)
Phy Exam
Physical Exam
Physical Exam:
GENERAL: Appears uncomfortable
HEENT: normocephalic, extraocular movements intact, moist oral mucosa
NECK: normal inspection
RESPIRATORY: no respiratory distress, clear to auscultation bilaterally
CARDIOVASCULAR: regular rate and rhythm
ABDOMEN/: soft, non-distended, non-tender to palpation, no rebound or guarding, left-sided CVA tender
EXTREMITIES: non-tender, no edema/swelling
NEUROLOGIC: awake and alert, moves all extremities
SKIN: warm
Course
Orders/Labs/Results
Orders:
Orders
03/24/25 18:21
CMP [Comprehensive Metabolic Panel] Urgent
Complete Blood Count/With Diff Urgent
03/24/25 20:13
CT Abd/pelvis W Iv Cont Urgent
Comment:
Reason For Exam: recent stent, worsening pain on left
03/24/25 20:20
Ketorolac [Toradol] 15 mg IV NOW STA
03/24/25 20:34
Electrocardiogram (*1) Urgent
Reason for Study: Syncope
EKG- Treatment ONCE
03/24/25 21:48
HYDROmorphone [Dilaudid] 0.5 mg .ROUTE .STK-MED ONE
03/24/25 21:49
HYDROmorphone [Dilaudid] 0.5 mg IV NOW STA
03/24/25 22:20
Urinalysis Reflex To Culture Urgent
Date Specimen was Collected: 03/24/25
Time Specimen was Collected: 18:16
Urine Microscopic Reflex Cult Urgent
03/24/25 23:14
Davenport Placement- Treatment ONCE
Reason for insertion: Urology Determination
03/24/25 23:30
Lidocaine 2% [Lidocaine Uro-Jet 2%] 1 syringe .ROUTE .STK-MED ONE
03/25/25 00:52
HYDROmorphone [Dilaudid] 0.5 mg IV NOW STA
Abnormal Lab Results
03/24/25 03/24/25
18:21 22:20
WBC 11.3 H 10^3/uL
(4.8-10.8)
Absolute Neuts (auto) 10.0 H 10^3/uL
(1.4-6.5)
Absolute Lymphs (auto) 0.7 L 10^3/uL
(1.2-3.4)
Neutrophils % 88.2 H %
(42.2-75.2)
Lymphocytes % 6.2 L %
(20.5-51.1)
Sodium 131 L mmol/L
(135-145)
Carbon Dioxide 20 L mmol/L
(22-30)
Glucose 263 H mg/dl
(70-99)
Urine Ketones 1+ A
(Negative)
Ur Occult Blood Reflex 4+ A
(Negative)
Urine RBC >100 A /HPF
(0-2)
Urine Glucose 4+ A
(Negative)
Urine Albumin (Reflex) 4+ A
(Neg - Trace)
03/24/25 18:21
03/24/25 18:21
Vital Signs
Initial and Last Documented VS:
Initial Vital Signs
Temp Pulse Resp BP Pulse Ox
97.9 F 111 16 143/95 95
03/24/25 18:11 03/24/25 18:11 03/24/25 18:11 03/24/25 18:11 03/24/25 18:11
Last Documented Vital Signs
Temp Pulse Resp BP Pulse Ox
97.9 F 111 16 143/95 98
03/24/25 18:11 03/24/25 18:11 03/24/25 18:11 03/24/25 18:11 03/24/25 23:14
MDM/Problems Addressed
Differential Diagnosis Includes:
Patient is a 45-year-old man with history of factor V Leiden on Xarelto, kidney stones with stent and stone extraction today presenting to the emergency department worsening left-sided flank pain and near syncope with any urination. On arrival
vitals unremarkable and exam does show man who appears uncomfortable with left-sided CVA tenderness. Concern for hematoma or complication from procedure. Blood work obtained prior to evaluation does show WBC of 11.3. Otherwise blood work is
reassuring. Will check urine and CT scan. Will pain control. Near syncope likely vagal response. Will obtain EKG.
*Pulse Oximetry
SaO2: 95
Oxygen Mode of Delivery: Room air
Patient hypoxic: no
*Critical Care Note
Total Time (30-74mins, 75-104mins- exclusive of procedures): Not Applicable
Update Note
Update Note:
EKG per my interpretation normal sinus rhythm. Pain did improve with Toradol initially but has reoccurred. Will give Dilaudid. CT scan per my interpretation with appropriate placement though it appears that the left stent is coiled. Per the
official read the left stent proximal to this coiled within the mid to upper pole calyx. Distal stent is in the urinary bladder. Given the pain, near syncope with urination and coiling of the stent I discussed with urology who recommended Davenport
catheter placement. If pain is controlled after that can discharged with tramadol and Flomax
Davenport catheter placed with significant bright red bloody urine. No clots. Patient still states that the pain is 10 out of 10. Will give additional Dilaudid. Discussed with hospitalist who excepted patient to their service
ED Attending Note
-
Portions of this chart may have been created with voice recognition software.� Occasional wrong word or��sound alike� substitutions may have occurred due to the inherent limitations of voice recognition software.
Discharge Plan
Departure
Patient Disposition: Admit
Date of Disposition: 03/25/25
Time of Disposition: 00:52
Presentation/result/management discussed w/ accepting MD/DO: Hospitalist
Discharge Problem:
Intractable pain
Prescriptions:
No Action
Xarelto 20 MG tablet
20 mg PO DAILY
atorvastatin 10 MG tablet
10 mg PO DAILY
dapagliflozin propanediol [Farxiga] 5 MG tablet
10 mg PO DAILY
cyclobenzaprine 10 mg tablet
10 mg PO TIDPRN PRN (Reason: muscle spasm) Qty: 20 0RF
Wegovy 2.4 mg/0.75 mL Pen Injector
2.4 mg SC QWEEK
Referrals:
Muna Macias MD [Family Provider, Family Practice]
Interventions
Interventions:
*Neglect/Abuse Screening Last Done: 03/24/25 18:11
[facility] Risk Assessment Tool Last Done: 03/24/25 23:26
*Risk Screen - Suicide (C-SSRS) Last Done: 03/24/25 18:11
ED-Skin Assessment Last Done: 03/24/25 23:14
Discharge Date and Time
Print Language: MACANESE
[2025-03-24] MEDS: TORADOL 15 MG IV (20:32)
[2025-03-24] MEDS: DILAUDID 0.5 MG IV (21:49)
[2025-03-24 22:38] LABS: Urine Character Bloody (Clear)
[2025-03-24 22:56] LABS: Urine Red Blood Cell >100 /HPF (0-2)
--- NOTE | 2025-03-25 01:05 | HPS.HSE ---
Family Physician
-
Family Physician: Muna Macias
Chief Complaint
-
Rectal bleed
History of Present Illness
45-year-old who has a past medical history significant for type 2 diabetes, factor V Leiden, hyperlipidemia, hypertension, migraine headaches, history of DVT/PE who presents to the emergency department following bilateral stent placement for flank
pain.
Patient reports a longstanding history of bilateral kidney stones. He had numerous stones in both kidneys and was referred for intervention. The first intervention was lithotripsy and removal stone which was done this morning and bilateral stents
were placed. Patient reported that immediately after the procedure has continued to have significant flank pain but no fevers or chills. He also had hematuria. After discharge she continues to have pain with some nausea and decided come to the
emergency department.
In the Emergency Department he had pain with attempted urination and still had hematuria. A urinary catheter was placed.
In the emergency department patient was afebrile, blood pressure was 143/90 with a pulse of 111 and oxygen saturation of 98% on room air. Temperature was 97.9. ECG shows a normal sinus rhythm at a rate of 70.
White count was 11.3, hemoglobin 16.4 bili 176. Sodium was 131 otherwise electrolytes BUN/creatinine were all in normal range. Glucose was 263. UA shows blood.
CT of the abdomen pelvis revealed left stent proximal tip is coiled within the mid to upper pole calyx; distal tip within the urinary bladder. No obstructive uropathy.
Right stent proximal tip in the renal pelvis and distal tip in the bladder. No hydronephrosis.
Bilateral mild perinephric edema without perirenal collection or abscess. However, bilateral patchy pyelonephritis.
Tiny bilateral intrarenal calculi.
Medical History
Past Medical History
Past Medical History: Reports Other
Additional Past Medical History:
HTN, Hypercholesterolemia and Other (factor V leiden, obesity, DVT/PE, DM II, perianal abscess
Past Surgical History: Reports Other
Additional Past Surgical History:
orchipexy, carpal tunnel release, L ankle arthoscopy, left ankle ligament repair, 07/27/2023- Exam under anesthesia, debridement of left anterior wound, bilateral pudendal nerve block, 07/01/2023- incision and drainage of left anterior intersphincteric
perianal abscess, fistulotomy
Social History
Tobacco: Non-smoker
Alcohol: None
Drug: None
Family History
Family History: Not pertinent
Allergies / Home Medications
Allergies reflects when Allergies were last updated in [facility].
Home Medications with original date entered in [facility]
Allergy/Medication List:
Allergies
Allergy/AdvReac Type Severity Reaction Status Date / Time
adhesive Allergy Hives Verified 08/05/23 13:14
azithromycin [From Zithromax] Allergy Unresponsiv Verified 08/05/23 13:14
e
bee venom protein (honey bee) Allergy Swelling Verified 08/05/23 13:14
coconut Allergy Throat Verified 08/05/23 13:14
swelling
latex Allergy swelling Verified 08/05/23 13:14
and rash
pseudoephedrine AdvReac double Verified 08/05/23 13:14
vision
Home Medications
rivaroxaban 20 mg tablet (Xarelto) 20 mg PO DAILY Blood clot prevention/tx 11/09/17
atorvastatin 10 mg tablet 10 mg PO DAILY High cholesterol 08/09/20
dapagliflozin propanediol 5 mg tablet (Farxiga) 5 mg PO DAILY Diabetes 08/09/20
insulin glargine 100 unit/mL subcutaneous solution (Lantus U-100 Insulin) 36 unit SC HS diabetes 06/24/23
dibucaine 1 % rectal ointment 1 applic TN TID PRN rectal discomfort #56 grams 06/25/23
semaglutide (weight loss) 0.5 mg/0.5 mL subcutaneous pen injector (Wegovy) 0.5 mg SC SA weight loss 06/30/23
acetaminophen 500 mg tablet 1,000 mg PO Q6H PRN discomfort 07/16/23
tramadol 50 mg tablet 50 mg PO Q6H PRN Pain #30 tabs 07/17/23
Review of Systems
-
Constitutional: Reports No Symptoms
EENT: Reports No Symptoms
Respiratory: Reports No Symptoms
Cardiac: Reports No Symptoms
Abdomen/GI: Reports No Symptoms
: Reports Flank Pain
Musculoskeletal: Reports No Symptoms
Skin: Reports No Symptoms
Neurological: Reports No Symptoms
Endocrine: Reports No Symptoms
Hematologic/Lymphatic: Reports No Symptoms
Psych: Reports No Symptoms
Physical Exam
Vital Signs
Vital Signs
Temp Pulse Resp BP Pulse Ox
97.9 F 111 16 143/95 98
03/24/25 18:11 03/24/25 18:11 03/24/25 18:11 03/24/25 18:11 03/24/25 23:14
Physical Exam
General: Well Developed, Well Nourished and No Apparent Distress
HEENT: NormoCephalic, Moist mucous membranes and Atraumatic
Respiratory: Clear
Cardiac: S1/S2 and Regular Rhythm; No Murmur or Rub
GI: Soft, Non Tender, Non Distended, Normal Bowel Sounds and Other (rectal abscess); No Organomegaly
Rectal: Deferred by Provider
Genito-urinary: Bloody Urine and Davenport
Musculoskeletal: No Clubbing, No Cyanosis and No Edema
Skin: No Rash
Neuro: AO x 3 and Nonfocal/grossly intact
Psych: Calm
Laboratory Results
-
03/24/25 18:21
03/24/25 18:21
Laboratory Results
Total Bilirubin 1.0 mg/dl (0.2-1.3) 03/24/25 18:21
AST 28 U/L (17-59) 03/24/25 18:21
ALT 40 U/L (0-50) 03/24/25 18:21
Alkaline Phosphatase 68 U/L (38-126) 03/24/25 18:21
Data Reviewed
-
CT Scan: Report Reviewed by me
Lab Data: Labs Reviewed by me
Old Records: Reviewed
Impression/Plan
-
IMPRESSION:
postop day #1 status post lithotripsy, stone evacuation placement of bilateral ureteral stents coming into the emergency department with ongoing flank pain without fevers or chills, ongoing hematuria and CT scan showing that the left stent proximal
tip is called within the mid to upper pole calyx otherwise no other findings and no obstructive uropathy. Urinary cath placed in ED with ongoing hematuria.
PLAN:
Flank pain�case discussed with urology, rule out recommended placement of urinary catheter which was done in the ED
� Admit to [facility]
� No evidence of acute infection at this time, monitor for fevers, check blood cultures and urine cultures afebrile
� Pain control with IV Dilaudid, antiemetics and oxycodone as needed
� For now we will continue to hold Xarelto
� Hold Farxiga
� Continue IV normal saline
� N.p.o. for now
� Urology consult
DVT prophy�SCDs CODE STATUS�full code
[2025-03-25] MEDS: DILAUDID 0.5 MG IV (01:06)
[2025-03-25 03:36] VITALS: BP 130/89
[2025-03-25 03:38] VITALS: BMI 30.7
[2025-03-25] MEDS: LR 1000 IV (03:58)
[2025-03-25] MEDS: DILAUDID 1 MG IV ×4 (04:01→19:53)
--- NOTE | 2025-03-25 04:56 | PTCARENOTE ---
Pt received from ED via stretcher. Pivoted to bed independently w/o incident. AAOx3, pleasant. Admission and assessment completed. Oriented to surroundings and plan of care discussed. Davenpotr catheter draining etta red blood. Medicated for 8
L flank pain per MD order (refer to MAY). Knee high SCDs placed. #20 LAC w/LR at 125 mL. Call whatley w/in reach. Safe environment maintained.
[2025-03-25 06:26] LABS: Hematocrit 44.4 % (39.0-52.0); Hemoglobin 15.8 g/dL (13.0-18.0); Mean Corp Hgb Conc. 35.6 g/dL (33.0-37.0); Mean Corpuscular Volume 87.4 fL (80.0-94.0); Platelet Count 160 10^3/uL (130-400); Red Cell Dist. Width 11.9 % (11.5-14.5)
[2025-03-25 06:53] LABS: Blood Urea Nitrogen 18 mg/dl (9-20); Calcium 8.8 mg/dl (8.4-10.2); Carbon Dioxide 23 mmol/L (22-30); Chloride 104 mmol/L (98-107); Estimated Creatinine Clearance 118 ml/min; Glucose 147 mg/dl (70-99); Potassium 4.4 mmol/L (3.5-5.1); Sodium 134 mmol/L (135-145); eGFR > 60.00
[2025-03-25 07:15] VITALS: BP 133/91
[2025-03-25 08:12] LABS: Glucose - Point of Care 152 mg/dl (70-99)
--- NOTE | 2025-03-25 08:34 | CON.MD ---
Consultation - Medical
-
see dictated note
pt on chronic xarelto- held 48hrs prior to procedure (he sais he has held prev for up to one week at a time)
had bilateral ureteroscopy with dr garnica for stones- bilateral stents
discharged- returned to ER with severe colic triggered by urination
CT showed stents in good position- no evid fo perf/extrav/obstruction- but bladder distended
mendes placed- urine bloody but no clots
pain improved- but still sig this am
plan
continue mendes
pain control
hold xarelto today- trend hematuria and hgb levels
Consultation
-
Date/Time Consultation Requested: 03/25/25 at 3am
Date/Time Consultation Performed: 03/25/25 at 6:30am
Requesting Provider: ER
Performing Provider: Dr bryant
Reason for Consultation: post op pain
--- NOTE | 2025-03-25 08:39 | W.PN.HOSP.TC ---
Today's Communication/Plan
-
Added Bentyl.
Continue Toradol/Dilaudid.
Added Pyridium
Assessment / Plan
Assessment / Plan
Impression:
The patient is a 45-year-old male with a past medical history significant for Factor V Leiden (on Xarelto) and kidney stones, who had bilateral ureteral stents placed earlier on the day of admission. He presents to the emergency department with
worsening left-sided flank pain.
After the procedure, the patient experienced significant pain and reported feeling near syncopal while using the bathroom, but was still discharged home. Since discharge, his pain has progressively worsened. He reports lightheadedness and dizziness,
feeling as though he might pass out with any attempt to urinate. He also notes gross hematuria.
The patient states he has held Xarelto for the past few days in preparation for the procedure. He denies fever or chills. He continues to have persistent left-sided flank pain. He mentions that during a previous episode with stents, he removed them
himself due to severe discomfort.
Assessment/plan:
Hematuria �history of kidney stone status post stent 03/24
Patient presented with hematuria/ flank pain post stent; ER discussed with Urology.
Urinary catheter placed in ED as recommended.
CT Abdomen/Pelvis Findings:
Left stent: proximal tip coiled in [id number] pole calyx; distal tip in bladder. No obstructive uropathy.
Right stent: proximal tip in renal pelvis; distal tip in bladder. No hydronephrosis.
Bilateral mild perinephric edema without collection or abscess.
Bilateral patchy pyelonephritis.
Tiny bilateral intrarenal calculi.
Plan:
Admitted to [facility].
No evidence of acute infection; monitor for fever.
Check blood and urine cultures; patient currently afebrile.
Pain control: IV Dilaudid, antiemetics, oxycodone PRN.
Hold Xarelto.
Hold Farxiga.
Continue IV normal saline.
Clear liquid diet
Urology consulted.
Type 2 Diabetes Mellitus
Home Meds:
Dapagliflozin (Farxiga) 10 mg PO daily � currently held.
Wegovy 2.4 mg SC weekly.
Plan:
Monitor blood glucose.
Hold Farxiga during hospitalization.
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
Home Meds:
Xarelto 20 mg PO daily � currently held.
Plan:
DVT prophylaxis with SCDs.
Resume anticoagulation when safe.
Hyperlipidemia
Home Meds:
Atorvastatin 10 mg PO daily.
Plan:
Continue atorvastatin.
History of Migraine Headaches
pain control
Hyponatremia
Plan:
Monitor electrolytes.
Continue IV fluids.
Code Status: Full Code
DVT Prophylaxis: SCDs
Diet: Clear liquid diet
Disposition: Added Bentyl.
Continue Toradol/Dilaudid.
Added Pyridium
Total time spent on today's encounter was 55 minutes which included time spent in counseling the patient/family regarding diagnosis and treatment plan as listed above, goals of care, and symptom management. Case was discussed with nursing staff,
specialists, and care coordinators/case management. All labs and imaging personally reviewed by me. Remainder the time spent in detailed review of previous records, lab data, imaging, and other medical provider documentation.
Part of this note was created using voice recognition system. Occasional wrong word or �sound alike� substitutions may have inadvertently occurred due to the inherent limitations of voice recognition software. If noted kindly bring it to my
attention for correction.
Anticipated Discharge: Within 24 hours
Subjective/Interval History
-
Date of Service: March 25, 2025
Patient seen and examined at bedside, still with left-sided abdominal pain to the left groin.
Objective Data
-
Labs:
Laboratory Results
03/25/25
05:36
WBC 12.6 H
Hgb 15.8
Hct 44.4
Plt Count 160
Sodium 134 L
Potassium 4.4
Chloride 104
Carbon Dioxide 23
BUN 18
Creatinine 1.0
Glucose 147 H
Calcium 8.8
Vital Signs:
Vital Signs
Temp Pulse Resp BP Pulse Ox
98.5 F 90 16 133/91 94
03/25/25 07:15 03/25/25 07:15 03/25/25 07:15 03/25/25 07:15 03/25/25 07:15
Physical Exam
-
General: Well Developed, Well Nourished, No Apparent Distress and Comfortable
HEENT: Normocephalic, Atraumatic, Moist Mucous Membranes, No Ptosis, PERRLA and Nose Appears Normal
Respiratory: Clear to Auscultation and Non Labored Respirations
Cardiac: Regular Rhythm and S1/S2
Breast: Deferred by me
GI: Soft and Tender (Left lower abdomen)
Genito-urinary: No Costovertebral Tender
Musculoskeletal: No Clubbing, No Cyanosis and No Edema
Skin: Warm
Neuro: Awake, Alert, Oriented, AO x 3 and No Motor Deficits
Psych: Calm
Data Reviewed
-
Diagnostic Radiology: Image personally visualized and interpreted and Report Reviewed by me
CT Scan: Image personally visualized and interpreted and Report Reviewed by me
Ultrasound: Image personally visualized and interpreted and Report Reviewed by me
MRI: Image personally visualized and interpreted and Report Reviewed by me
Medical Tests (Nuc Med, Echo etc): Image personally visualized and interpreted and Report Reviewed by me
Labs: Labs Reviewed by me
Old Records: Reviewed
[2025-03-25] MEDS: FLOMAX 0.4 MG PO (09:12)
[2025-03-25] MEDS: STERILE WATER FOR INJECTION 10 ML IV (09:13)
[2025-03-25] MEDS: ROCEPHIN 1000 MG IV (09:13)
[2025-03-25] MEDS: ZOFRAN 4 MG IV ×2 (09:15→19:53)
[2025-03-25] MEDS: NOVOLOG FLEXPEN-LOW RESISTANCE SC ×2 (09:53→17:35)
[2025-03-25 12:07] LABS: Glucose - Point of Care 161 mg/dl (70-99)
[2025-03-25] MEDS: BENTYL 20 MG PO ×3 (13:05→22:26)
[2025-03-25] MEDS: NOVOLOG FLEXPEN-LOW RESISTANCE 1 UNITS SC (13:06)
[2025-03-25 15:10] VITALS: BP 124/91
[2025-03-25] MEDS: TORADOL 15 MG IV ×2 (16:06→23:36)
[2025-03-25 17:07] LABS: Glucose - Point of Care 130 mg/dl (70-99)
[2025-03-25 21:44] LABS: Glucose - Point of Care 119 mg/dl (70-99)
[2025-03-25] MEDS: ROXICODONE 5 MG PO (22:26)
[2025-03-25 23:06] VITALS: BP 116/75
[2025-03-26] MEDS: DILAUDID 1 MG IV ×4 (02:31→21:49)
[2025-03-26] MEDS: NSS 1000 IV ×3 (03:32→23:36)
[2025-03-26] MEDS: ROXICODONE 5 MG PO ×2 (05:47→19:11)
[2025-03-26 07:20] VITALS: BP 147/90
[2025-03-26 07:32] LABS: Hematocrit 45.1 % (39.0-52.0); Hemoglobin 15.6 g/dL (13.0-18.0); Mean Corp Hgb Conc. 34.6 g/dL (33.0-37.0); Mean Corpuscular Volume 89.5 fL (80.0-94.0); Platelet Count 139 10^3/uL (130-400); Red Cell Dist. Width 12.2 % (11.5-14.5)
[2025-03-26 07:56] LABS: Blood Urea Nitrogen 21 mg/dl (9-20); Calcium 8.8 mg/dl (8.4-10.2); Carbon Dioxide 26 mmol/L (22-30); Chloride 102 mmol/L (98-107); Estimated Creatinine Clearance 98 ml/min; Glucose 111 mg/dl (70-99); Potassium 4.4 mmol/L (3.5-5.1); Sodium 134 mmol/L (135-145); eGFR > 60.00
--- NOTE | 2025-03-26 08:01 | W.PN.URO.CBU ---
Today's Communication / Plan
-
advance diet and activity
try to move to oral pain meds
continue mendes
restart xarelto tomorrow
Assessment / Plan
-
s/p bilateral ureteroscopy for stones
on chronic xarelto
post op stent pain/spasms- no objective abnl findings at this point
reviewed with pt
plan to advance care today- mendes leg bag teaching/advance diet and actvity/try to move to just oral pain meds
would restart xarelto tomorrow
if stable today- would discharge WITH mendes over the weekend- then if pain stable at home remove in office next week
plan was for stent removal on apr 06- will confirm
Diagnosis
-
Date of Service: March 26, 2025
-
Patient Diagnosis:
s/p bilateral ureteroscopy
admitted with stent pain
Subjective
-
pt still c/o of LLQ pain radiating into groin
mendes in place- urine now pyridium colored
Objective
-
Vital Signs
Temp Pulse Resp BP Pulse Ox
98.4 F 86 16 147/90 96
03/26/25 07:20 03/26/25 07:20 03/26/25 07:20 03/26/25 07:20 03/26/25 07:20
Intake and Output
03/25/25 03/26/25 03/27/25
06:59 06:59 06:59
Intake Total 1620 / 1620
Output Total 1550 / 1550
Balance 70 / 70
Intake:
Oral fluids 1320 / 1320
IV fluids (Total) 300 / 300
Output:
Urine, Mendes 1550 / 1550
Laboratory Results
03/26/25 06:55
03/26/25 06:55
Review of Systems
-
Constitutional: Fatigue
Respiratory: No Symptoms
Cardiac: No Symptoms
Abdomen/GI: Abdominal Pain
: Other (mendes discomfort)
Physical Exam
-
General - no acute distress
Abdomen - soft, non-tender
Genitalia - normal- mendes in place
[2025-03-26 08:05] LABS: Glucose - Point of Care 112 mg/dl (70-99)
[2025-03-26] MEDS: NOVOLOG FLEXPEN-LOW RESISTANCE SC ×2 (08:22→12:21)
[2025-03-26] MEDS: FLOMAX 0.4 MG PO (08:41)
[2025-03-26] MEDS: BENTYL 20 MG PO ×4 (08:41→22:45)
[2025-03-26] MEDS: TORADOL 15 MG IV ×3 (08:41→23:35)
[2025-03-26] MEDS: ZOFRAN 4 MG IV ×2 (08:48→21:49)
[2025-03-26] MEDS: ROCEPHIN 1000 MG IV (10:19)
[2025-03-26] MEDS: STERILE WATER FOR INJECTION 10 ML IV (10:20)
[2025-03-26 12:14] LABS: Glucose - Point of Care 135 mg/dl (70-99)
--- NOTE | 2025-03-26 12:29 | VNURNOTE ---
Home Health Liaison met with patient and family at bedside to discuss [facility] nurse/therapy, visits, schedule and homebound status. Patient is agreeable and understands that visits at home will be 2-3 x per week to assess and teach medical and mendes
management.
Patient is aware that [facility] will contact them for start of care within 1-2 days after discharge from . Provided contact number for [facility].
[facility] referral completed in [facility].
--- NOTE | 2025-03-26 12:51 | CM ---
manager environmental reviewed patient's chart and met with patient and patient states he lives with his spouse and 3 children in a 2 story home, patient is independent with adl's and ambulation, no dme, patient drives, patient was OBS but was changed to
inpatient, patient made aware of inpatient status, plan is to home when stable, in case patient needs vn at discharge, VN contacted.
PCP: Dr Macias
[facility] in [place]
--- NOTE | 2025-03-26 12:52 | W.PN.HOSP.TC ---
Today's Communication/Plan
-
Continue pain control.
Patient still with significant pain and requires multiple IV pain medications
Hematuria improved.
Will upgrade to inpatient
Assessment / Plan
Assessment / Plan
Impression:
The patient is a 45-year-old male with a past medical history significant for Factor V Leiden (on Xarelto) and kidney stones, who had bilateral ureteral stents placed earlier on the day of admission. He presents to the emergency department with
worsening left-sided flank pain.
After the procedure, the patient experienced significant pain and reported feeling near syncopal while using the bathroom, but was still discharged home. Since discharge, his pain has progressively worsened. He reports lightheadedness and dizziness,
feeling as though he might pass out with any attempt to urinate. He also notes gross hematuria.
The patient states he has held Xarelto for the past few days in preparation for the procedure. He denies fever or chills. He continues to have persistent left-sided flank pain. He mentions that during a previous episode with stents, he removed them
himself due to severe discomfort.
Admitted to the hospital for pain control.
Monitor hemoglobin.
Hematuria improved
Assessment/plan:
Hematuria �history of kidney stone status post stent 03/24
Patient presented with hematuria/ flank pain post stent; ER discussed with Urology.
Urinary catheter placed in ED as recommended.
CT Abdomen/Pelvis Findings:
Left stent: proximal tip coiled in [id number] pole calyx; distal tip in bladder. No obstructive uropathy.
Right stent: proximal tip in renal pelvis; distal tip in bladder. No hydronephrosis.
Bilateral mild perinephric edema without collection or abscess.
Bilateral patchy pyelonephritis.
Tiny bilateral intrarenal calculi.
Plan:
Admitted to [facility].
No evidence of acute infection; monitor for fever.
Check blood and urine cultures; patient currently afebrile.
Pain control: IV Dilaudid, antiemetics, oxycodone PRN.
Hold Xarelto.
Hold Farxiga.
Continue IV normal saline.
Clear liquid diet---> advanced
Urology consulted.
Type 2 Diabetes Mellitus
Home Meds:
Dapagliflozin (Farxiga) 10 mg PO daily � currently held.
Wegovy 2.4 mg SC weekly.
Plan:
Monitor blood glucose.
Hold Farxiga during hospitalization.
update HBA1C
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
Home Meds:
Xarelto 20 mg PO daily � currently held.
Plan:
DVT prophylaxis with SCDs.
Resume anticoagulation when safe.
Hyperlipidemia
Home Meds:
Atorvastatin 10 mg PO daily.
Plan:
Continue atorvastatin.
History of Migraine Headaches
pain control
Hyponatremia
Plan:
Monitor electrolytes.
Continue IV fluids.
Code Status: Full Code
DVT Prophylaxis: SCDs
Diet: DM
Disposition: Continue pain control.
Patient still with significant pain and requires multiple IV pain medications
Hematuria improved.
Will upgrade to inpatient
Total time spent on today's encounter was 55 minutes which included time spent in counseling the patient/family regarding diagnosis and treatment plan as listed above, goals of care, and symptom management. Case was discussed with nursing staff,
specialists, and care coordinators/case management. All labs and imaging personally reviewed by me. Remainder the time spent in detailed review of previous records, lab data, imaging, and other medical provider documentation.
Part of this note was created using voice recognition system. Occasional wrong word or �sound alike� substitutions may have inadvertently occurred due to the inherent limitations of voice recognition software. If noted kindly bring it to my
attention for correction.
Anticipated Discharge: Within 24 hours
Subjective/Interval History
-
Date of Service: March 26, 2025
Patient seen and examined at bedside, still with left-sided abdominal pain and nausea but overall improved.
Objective Data
-
Labs:
Laboratory Results
03/26/25
06:55
WBC 7.5
Hgb 15.6
Hct 45.1
Plt Count 139
Sodium 134 L
Potassium 4.4
Chloride 102
Carbon Dioxide 26
BUN 21 H
Creatinine 1.2
Glucose 111 H
Calcium 8.8
Vital Signs:
Vital Signs
Temp Pulse Resp BP Pulse Ox
98.4 F 86 16 147/90 96
03/26/25 07:20 03/26/25 07:20 03/26/25 07:20 03/26/25 07:20 03/26/25 07:20
I&O
03/25/25 03/26/25 03/27/25
06:59 06:59 06:59
Intake Total 1620 / 1620
Output Total 1550 / 1550
Balance 70 / 70
Physical Exam
-
General: Well Developed, Well Nourished, No Apparent Distress and Comfortable
HEENT: Normocephalic, Atraumatic, Moist Mucous Membranes, No Ptosis, PERRLA and Nose Appears Normal
Respiratory: Clear to Auscultation and Non Labored Respirations
Cardiac: Regular Rhythm and S1/S2
Breast: Deferred by me
GI: Soft and Tender (Left lower abdomen)
Genito-urinary: No Costovertebral Tender
Musculoskeletal: No Clubbing, No Cyanosis and No Edema
Skin: Warm
Neuro: Awake, Alert, Oriented, AO x 3 and No Motor Deficits
Psych: Calm
--- NOTE | 2025-03-26 13:00 | PTCARENOTE ---
teaching r/t leg bag, changing and catheter maintenance completed
[2025-03-26 15:10] VITALS: BP 138/89
[2025-03-26 17:26] LABS: Glucose - Point of Care 174 mg/dl (70-99)
[2025-03-26] MEDS: NOVOLOG FLEXPEN-LOW RESISTANCE 1 UNITS SC (17:30)
[2025-03-26 22:14] LABS: Glucose - Point of Care 132 mg/dl (70-99)
[2025-03-26 23:18] VITALS: BP 130/79
[2025-03-27] MEDS: DILAUDID 1 MG IV ×3 (01:44→23:53)
[2025-03-27] MEDS: VALIUM INJECTION 2.5 MG IV ×3 (01:45→23:16)
[2025-03-27] MEDS: ROXICODONE 5 MG PO ×2 (04:12→10:27)
[2025-03-27 05:42] LABS: Hematocrit 42.2 % (39.0-52.0); Hemoglobin 14.6 g/dL (13.0-18.0); Mean Corp Hgb Conc. 34.6 g/dL (33.0-37.0); Mean Corpuscular Volume 88.1 fL (80.0-94.0); Platelet Count 134 10^3/uL (130-400); Red Cell Dist. Width 11.9 % (11.5-14.5)
[2025-03-27 06:02] LABS: Blood Urea Nitrogen 17 mg/dl (9-20); Calcium 8.4 mg/dl (8.4-10.2); Carbon Dioxide 28 mmol/L (22-30); Chloride 104 mmol/L (98-107); Estimated Creatinine Clearance 107 ml/min; Glucose 92 mg/dl (70-99); Potassium 4.2 mmol/L (3.5-5.1); Sodium 134 mmol/L (135-145); eGFR > 60.00
[2025-03-27 07:00] VITALS: BP 126/85
[2025-03-27 07:12] LABS: Glucose - Point of Care 116 mg/dl (70-99)
[2025-03-27] MEDS: NOVOLOG FLEXPEN-LOW RESISTANCE SC ×3 (07:37→16:24)
[2025-03-27] MEDS: TORADOL 15 MG IV (08:49)
[2025-03-27] MEDS: BENTYL 20 MG PO ×4 (08:50→21:08)
[2025-03-27] MEDS: FLOMAX 0.4 MG PO (08:50)
[2025-03-27] MEDS: SENOKOT-S 1 TABLET PO (08:50)
[2025-03-27] MEDS: TYLENOL 650 MG PO (09:24)
[2025-03-27] MEDS: ROCEPHIN 1000 MG IV (09:38)
[2025-03-27] MEDS: STERILE WATER FOR INJECTION 10 ML IV (09:38)
--- NOTE | 2025-03-27 10:15 | W.PN.URO.CBU ---
Today's Communication / Plan
-
Maintain [place] catheter
Plan for catheter + bilateral stent removal week of 03/29
OK to restart Xarelto
IV Diazepam + oxybutynin 5 mg BID ordered for bladder spasms (opioid suboptimal for bladder spasm control)
Assessment / Plan
-
s/p bilateral ureteroscopy/laser lithotripsy/stent placement for renal stones
Gross hematuria potentiated by Xarelto
Post-op stent pain and bladder spasms
WBC WNL
H/H WNL
Cr WNL
CT imaging WNL (bilateral stents in place w/o hydronephrosis)
No objective findings to explain significant bladder/urethral pain other than poor stent tolerance and bladder spasms.
Diagnosis
-
Date of Service: March 27, 2025
-
Patient Diagnosis:
s/p bilateral ureteroscopy/laser lithotripsy/stent placement for renal stones
Xarelto AC
Post-op stent pain and bladder spasms
Subjective
-
C/o significant pelvic and suprapubic pain this morning.
Urine orange-brown this AM in catheter tubing.
Objective
-
Vital Signs
Temp Pulse Resp BP Pulse Ox
98.5 F 82 12 126/85 97
03/27/25 07:00 03/27/25 07:00 03/27/25 07:00 03/27/25 07:00 03/27/25 07:00
Intake and Output
03/26/25 03/27/25 03/28/25
06:59 06:59 06:59
Intake Total 1620 / 1620 800 / 800
Output Total 1550 / 1550 2550 / 2550
Balance 70 / 70 -1750 / -1750
Intake:
Oral fluids 1320 / 1320 800 / 800
IV fluids (Total) 300 / 300
Output:
Urine, [place] 1550 / 1550 2550 / 2550
Laboratory Results
03/27/25 05:24
03/27/25 05:24
Physical Exam
-
General - well developed, well nourished, no acute distress
Abdomen - soft, non-tender, non-distended
Neuro - AOx3, no motor deficits
Extremities - no edema
Care Review
Data Reviewed
Discussed with: Hospitalist and Nursing
CT Scan: Report Pers Reviewed and Image Pers Reviewed
Total Time Spent with Patient (in minutes): 25
[2025-03-27 10:23] LABS: Glycohemoglobin (HgbA1c) 7.2 % (4.0-5.9)
--- NOTE | 2025-03-27 10:54 | W.PN.HOSP.TC ---
Today's Communication/Plan
-
Continue pain control.
Patient still with significant pain and requires multiple IV pain medications
Hematuria improved.
Resume Xarelto
Assessment / Plan
Assessment / Plan
Impression:
The patient is a 45-year-old male with a past medical history significant for Factor V Leiden (on Xarelto) and kidney stones, who had bilateral ureteral stents placed earlier on the day of admission. He presents to the emergency department with
worsening left-sided flank pain.
After the procedure, the patient experienced significant pain and reported feeling near syncopal while using the bathroom, but was still discharged home. Since discharge, his pain has progressively worsened. He reports lightheadedness and dizziness,
feeling as though he might pass out with any attempt to urinate. He also notes gross hematuria.
The patient states he has held Xarelto for the past few days in preparation for the procedure. He denies fever or chills. He continues to have persistent left-sided flank pain. He mentions that during a previous episode with stents, he removed them
himself due to severe discomfort.
Admitted to the hospital for pain control.
Monitor hemoglobin.
Hematuria improved
Assessment/plan:
Hematuria �history of kidney stone status post stent 03/24
Patient presented with hematuria/ flank pain post stent; ER discussed with Urology.
Urinary catheter placed in ED as recommended.
CT Abdomen/Pelvis Findings:
Left stent: proximal tip coiled in [id number] pole calyx; distal tip in bladder. No obstructive uropathy.
Right stent: proximal tip in renal pelvis; distal tip in bladder. No hydronephrosis.
Bilateral mild perinephric edema without collection or abscess.
Bilateral patchy pyelonephritis.
Tiny bilateral intrarenal calculi.
Plan:
Admitted to [facility].
No evidence of acute infection; monitor for fever.
Check blood and urine cultures; patient currently afebrile.
Pain control: IV Dilaudid, antiemetics, oxycodone PRN.
Hold Xarelto.
Hold Farxiga.
Continue IV normal saline.
Clear liquid diet---> advanced
Urology consulted.
Continue with bimodal pain medications
Type 2 Diabetes Mellitus
Home Meds:
Dapagliflozin (Farxiga) 10 mg PO daily � currently held.
Wegovy 2.4 mg SC weekly.
Plan:
Monitor blood glucose.
Hold Farxiga during hospitalization.
HBA1C 7.2
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
Home Meds:
Xarelto 20 mg PO daily
Plan:
resume Xarelto
Hyperlipidemia
Home Meds:
Atorvastatin 10 mg PO daily.
Plan:
Continue atorvastatin.
History of Migraine Headaches
pain control
Hyponatremia
Plan:
Monitor electrolytes.
Continue IV fluids.
Code Status: Full Code
DVT Prophylaxis: Xarelto
Diet: DM
Disposition: Continue pain control.
Patient still with significant pain and requires multiple IV pain medications
Hematuria improved.
Resume Xarelto
Total time spent on today's encounter was 55 minutes which included time spent in counseling the patient/family regarding diagnosis and treatment plan as listed above, goals of care, and symptom management. Case was discussed with nursing staff,
specialists, and care coordinators/case management. All labs and imaging personally reviewed by me. Remainder the time spent in detailed review of previous records, lab data, imaging, and other medical provider documentation.
Part of this note was created using voice recognition system. Occasional wrong word or �sound alike� substitutions may have inadvertently occurred due to the inherent limitations of voice recognition software. If noted kindly bring it to my
attention for correction.
Anticipated Discharge: Within 24 hours
Subjective/Interval History
-
Date of Service: March 27, 2025
Patient seen and examined at bedside, still with left-sided abdominal pain , denies chest pain or shortness of breath.
Objective Data
-
Labs:
Laboratory Results
03/27/25
05:24
WBC 6.1
Hgb 14.6
Hct 42.2
Plt Count 134
Sodium 134 L
Potassium 4.2
Chloride 104
Carbon Dioxide 28
BUN 17
Creatinine 1.1
Glucose 92
Calcium 8.4
Vital Signs:
Vital Signs
Temp Pulse Resp BP Pulse Ox
98.5 F 82 12 126/85 97
03/27/25 07:00 03/27/25 07:00 03/27/25 07:00 03/27/25 07:00 03/27/25 07:00
I&O
03/26/25 03/27/25 03/28/25
06:59 06:59 06:59
Intake Total 1620 / 1620 800 / 800
Output Total 1550 / 1550 2550 / 2550
Balance 70 / 70 -1750 / -1750
Physical Exam
-
General: Well Developed, Well Nourished, No Apparent Distress and Comfortable
HEENT: Normocephalic, Atraumatic, Moist Mucous Membranes, No Ptosis, PERRLA and Nose Appears Normal
Respiratory: Clear to Auscultation and Non Labored Respirations
Cardiac: Regular Rhythm and S1/S2
Breast: Deferred by me
GI: Soft and Tender (Left lower abdomen)
Genito-urinary: No Costovertebral Tender
Musculoskeletal: No Clubbing, No Cyanosis and No Edema
Skin: Warm
Neuro: Awake, Alert, Oriented, AO x 3 and No Motor Deficits
Psych: Calm
[2025-03-27] MEDS: ZOFRAN 4 MG IV ×2 (11:00→23:53)
[2025-03-27] MEDS: VALIUM INJECTION 5 MG IV (11:24)
[2025-03-27] MEDS: NSS 1000 IV (12:21)
[2025-03-27 13:10] LABS: Glucose - Point of Care 106 mg/dl (70-99)
[2025-03-27 15:00] VITALS: BP 146/88
[2025-03-27 16:06] LABS: Glucose - Point of Care 108 mg/dl (70-99)
[2025-03-27] MEDS: XARELTO 20 MG PO (17:09)
[2025-03-27] MEDS: DITROPAN 5 MG PO (19:31)
[2025-03-27] MEDS: TORADOL 30 MG IV (21:13)
[2025-03-27] MEDS: FLUSH (NSS) 1 FLUSH IV (21:14)
[2025-03-27 21:31] LABS: Glucose - Point of Care 98 mg/dl (70-99)
[2025-03-27 22:52] LABS: Hematocrit 40.6 % (39.0-52.0); Hemoglobin 14.4 g/dL (13.0-18.0)
[2025-03-27 23:00] VITALS: BP 120/81
[2025-03-28] MEDS: ROXICODONE 5 MG PO ×3 (03:37→23:26)
[2025-03-28] MEDS: VALIUM INJECTION 2.5 MG IV ×3 (05:17→19:57)
[2025-03-28 07:00] VITALS: BP 139/85
[2025-03-28 07:20] LABS: Glucose - Point of Care 88 mg/dl (70-99)
[2025-03-28] MEDS: NOVOLOG FLEXPEN-LOW RESISTANCE SC ×2 (07:26→16:36)
[2025-03-28] MEDS: BENTYL 20 MG PO ×4 (08:03→21:22)
[2025-03-28] MEDS: FLOMAX 0.4 MG PO (08:03)
[2025-03-28] MEDS: DITROPAN 5 MG PO ×2 (08:03→19:57)
[2025-03-28] MEDS: TORADOL 30 MG IV ×2 (08:11→18:36)
[2025-03-28] MEDS: STERILE WATER FOR INJECTION 10 ML IV (09:17)
[2025-03-28] MEDS: ROCEPHIN 1000 MG IV (09:17)
[2025-03-28] MEDS: MIRALAX 17 GRAMS PO (09:17)
--- NOTE | 2025-03-28 10:19 | W.PN.HOSP.TC ---
Today's Communication/Plan
-
Continue Dilaudid.
MiraLAX.
Flexeril
Assessment / Plan
Assessment / Plan
Impression:
The patient is a 45-year-old male with a past medical history significant for Factor V Leiden (on Xarelto) and kidney stones, who had bilateral ureteral stents placed earlier on the day of admission. He presents to the emergency department with
worsening left-sided flank pain.
After the procedure, the patient experienced significant pain and reported feeling near syncopal while using the bathroom, but was still discharged home. Since discharge, his pain has progressively worsened. He reports lightheadedness and dizziness,
feeling as though he might pass out with any attempt to urinate. He also notes gross hematuria.
The patient states he has held Xarelto for the past few days in preparation for the procedure. He denies fever or chills. He continues to have persistent left-sided flank pain. He mentions that during a previous episode with stents, he removed them
himself due to severe discomfort.
Admitted to the hospital for pain control.
Monitor hemoglobin.
Hematuria improved
Assessment/plan:
Hematuria �history of kidney stone status post stent 03/24
Patient presented with hematuria/ flank pain post stent; ER discussed with Urology.
Urinary catheter placed in ED as recommended.
CT Abdomen/Pelvis Findings:
Left stent: proximal tip coiled in [id number] pole calyx; distal tip in bladder. No obstructive uropathy.
Right stent: proximal tip in renal pelvis; distal tip in bladder. No hydronephrosis.
Bilateral mild perinephric edema without collection or abscess.
Bilateral patchy pyelonephritis.
Tiny bilateral intrarenal calculi.
Plan:
Admitted to [facility].
No evidence of acute infection; monitor for fever.
Check blood and urine cultures; patient currently afebrile.
Pain control: IV Dilaudid, antiemetics, oxycodone PRN.
Hold Farxiga.
Continue IV normal saline.
Clear liquid diet---> advanced
Urology consulted.
Continue with bimodal pain medications
03/28
Patient still with significant pain.
Discontinue Dilaudid.
MiraLAX for constipation.
Added Flexeril
Type 2 Diabetes Mellitus
Home Meds:
Dapagliflozin (Farxiga) 10 mg PO daily � currently held.
Wegovy 2.4 mg SC weekly.
Plan:
Monitor blood glucose.
Hold Farxiga during hospitalization.
HBA1C 7.2
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
Home Meds:
Xarelto 20 mg PO daily
Plan:
resume Xarelto
Hyperlipidemia
Home Meds:
Atorvastatin 10 mg PO daily.
Plan:
Continue atorvastatin.
History of Migraine Headaches
pain control
Hyponatremia
Plan:
Monitor electrolytes.
Continue IV fluids.
Code Status: Full Code
DVT Prophylaxis: Xarelto
Diet: DM
Disposition: Continue Dilaudid.
MiraLAX.
Flexeril
Total time spent on today's encounter was 55 minutes which included time spent in counseling the patient/family regarding diagnosis and treatment plan as listed above, goals of care, and symptom management. Case was discussed with nursing staff,
specialists, and care coordinators/case management. All labs and imaging personally reviewed by me. Remainder the time spent in detailed review of previous records, lab data, imaging, and other medical provider documentation.
Part of this note was created using voice recognition system. Occasional wrong word or �sound alike� substitutions may have inadvertently occurred due to the inherent limitations of voice recognition software. If noted kindly bring it to my
attention for correction.
Anticipated Discharge: Within 24 hours
Subjective/Interval History
-
Date of Service: March 28, 2025
Patient seen and examined at bedside, still with left-sided abdominal pain , denies chest pain or shortness of breath.
Will discontinue Dilaudid, ordered MiraLAX, and added flexril.
Objective Data
-
Labs:
Laboratory Results
03/27/25
22:41
Hgb 14.4
Hct 40.6
Vital Signs:
Vital Signs
Temp Pulse Resp BP Pulse Ox
98.7 F 78 12 139/85 95
03/28/25 07:00 03/28/25 07:00 03/28/25 07:00 03/28/25 07:00 03/28/25 07:00
I&O
03/27/25 03/28/25 03/29/25
06:59 06:59 06:59
Intake Total 800 / 800 2700 / 2700
Output Total 2550 / 2550 2600 / 2600
Balance -1750 / -1750 100 / 100
Physical Exam
-
General: Well Developed, Well Nourished, No Apparent Distress and Comfortable
HEENT: Normocephalic, Atraumatic, Moist Mucous Membranes, No Ptosis, PERRLA and Nose Appears Normal
Respiratory: Clear to Auscultation and Non Labored Respirations
Cardiac: Regular Rhythm and S1/S2
Breast: Deferred by me
GI: Soft and Tender (Left lower abdomen)
Genito-urinary: No Costovertebral Tender
Musculoskeletal: No Clubbing, No Cyanosis and No Edema
Skin: Warm
Neuro: Awake, Alert, Oriented, AO x 3 and No Motor Deficits
Psych: Calm
[2025-03-28 12:18] LABS: Glucose - Point of Care 236 mg/dl (70-99)
[2025-03-28] MEDS: NOVOLOG FLEXPEN-LOW RESISTANCE 2 UNITS SC (12:20)
[2025-03-28 15:00] VITALS: BP 144/101
--- NOTE | 2025-03-28 15:32 | W.PN.UPDATE ---
Update Note
Progress Note Update
03/24: s/p bilateral ureteroscopy/laser lithotripsy/stone extraction/stent insertion (x2).
Poor stent tolerance and pain out of proportion w/ expected post-op course.
CT imaging w/o acute findings, no hydronephrosis bilaterally w/ stents in appropriate position.
Pelvis/flank pain '90%' reduced by Davenport catheter insertion (expected secondary to urine reflux via stents).
However, has required continuous opioids analgesia since admission.
Oxybutynin started for bladder spasms in addition to prn IV Diazepam.
Plan:
- in light of extremely poor stent tolerance, will coordinate catheter + stent removal in office mid-week (~1 week postop)
- NSAIDs (Toradol, ibuprofen, etc) advised + anticholinergic for bladder spasms
Urology signing off - no new input
[2025-03-28 16:35] LABS: Glucose - Point of Care 97 mg/dl (70-99)
[2025-03-28] MEDS: XARELTO 20 MG PO (17:05)
[2025-03-28] MEDS: FLEXERIL 10 MG PO (17:06)
[2025-03-28 21:24] LABS: Glucose - Point of Care 120 mg/dl (70-99)
[2025-03-28 23:10] VITALS: BP 119/79
[2025-03-29] MEDS: FLEXERIL 10 MG PO (04:15)
[2025-03-29 07:22] LABS: Glucose - Point of Care 101 mg/dl (70-99)
[2025-03-29 07:44] VITALS: BP 124/85
[2025-03-29] MEDS: NOVOLOG FLEXPEN-LOW RESISTANCE SC ×3 (09:03→16:27)
[2025-03-29] MEDS: DITROPAN 5 MG PO ×2 (09:04→19:32)
[2025-03-29] MEDS: FLOMAX 0.4 MG PO (09:04)
[2025-03-29] MEDS: BENTYL 20 MG PO ×4 (09:04→21:11)
--- NOTE | 2025-03-29 10:35 | W.PN.HOSP.TC ---
Today's Communication/Plan
-
plan to have Davenport and stent removed in the hospital under sedation Saturday or Saturday.
Assessment / Plan
Assessment / Plan
Impression:
The patient is a 45-year-old male with a past medical history significant for Factor V Leiden (on Xarelto) and kidney stones, who had bilateral ureteral stents placed earlier on the day of admission. He presents to the emergency department with
worsening left-sided flank pain.
After the procedure, the patient experienced significant pain and reported feeling near syncopal while using the bathroom, but was still discharged home. Since discharge, his pain has progressively worsened. He reports lightheadedness and dizziness,
feeling as though he might pass out with any attempt to urinate. He also notes gross hematuria.
The patient states he has held Xarelto for the past few days in preparation for the procedure. He denies fever or chills. He continues to have persistent left-sided flank pain. He mentions that during a previous episode with stents, he removed them
himself due to severe discomfort.
Admitted to the hospital for pain control.
Monitor hemoglobin.
Hematuria improved
Patient supposed to be discharged and follow-up as outpatient but secondary to continue spasm and pain plan to have Davenport and stent removed in the hospital under sedation Saturday or possible Saturday.
Assessment/plan:
Hematuria �history of kidney stone status post stent 03/24
Patient presented with hematuria/ flank pain post stent; ER discussed with Urology.
Urinary catheter placed in ED as recommended.
CT Abdomen/Pelvis Findings:
Left stent: proximal tip coiled in [id number] pole calyx; distal tip in bladder. No obstructive uropathy.
Right stent: proximal tip in renal pelvis; distal tip in bladder. No hydronephrosis.
Bilateral mild perinephric edema without collection or abscess.
Bilateral patchy pyelonephritis.
Tiny bilateral intrarenal calculi.
Plan:
Admitted to [facility].
No evidence of acute infection; monitor for fever.
Check blood and urine cultures; patient currently afebrile.
Pain control: IV Dilaudid, antiemetics, oxycodone PRN.
Hold Farxiga.
Continue IV normal saline.
Clear liquid diet---> advanced
Urology consulted.
Continue with bimodal pain medications
03/28
Patient still with significant pain.
Discontinue Dilaudid.
MiraLAX for constipation.
Added Flexeril
Type 2 Diabetes Mellitus
Home Meds:
Dapagliflozin (Farxiga) 10 mg PO daily � currently held.
Wegovy 2.4 mg SC weekly.
Plan:
Monitor blood glucose.
Hold Farxiga during hospitalization.
HBA1C 7.2
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
Home Meds:
Xarelto 20 mg PO daily
Plan:
resume Xarelto
Hyperlipidemia
Home Meds:
Atorvastatin 10 mg PO daily.
Plan:
Continue atorvastatin.
History of Migraine Headaches
pain control
Hyponatremia
Plan:
Monitor electrolytes.
Continue IV fluids.
Code Status: Full Code
DVT Prophylaxis: Xarelto
Diet: DM
Disposition: Patient supposed to be discharged and follow-up as outpatient but secondary to continue spasm and pain plan to have Davenport and stent removed in the hospital under sedation Saturday or possible Saturday.
Total time spent on today's encounter was 55 minutes which included time spent in counseling the patient/family regarding diagnosis and treatment plan as listed above, goals of care, and symptom management. Case was discussed with nursing staff,
specialists, and care coordinators/case management. All labs and imaging personally reviewed by me. Remainder the time spent in detailed review of previous records, lab data, imaging, and other medical provider documentation.
Part of this note was created using voice recognition system. Occasional wrong word or �sound alike� substitutions may have inadvertently occurred due to the inherent limitations of voice recognition software. If noted kindly bring it to my
attention for correction.
Anticipated Discharge: Within 24 hours
Subjective/Interval History
-
Date of Service: March 29, 2025
Patient seen and examined at bedside, denies any chest pain or shortness of breath, improved abdominal pain, no nausea, no vomiting, no diarrhea or constipation.
Objective Data
-
Vital Signs:
Vital Signs
Temp Pulse Resp BP Pulse Ox
98.2 F 70 17 124/85 98
03/29/25 07:44 03/29/25 07:44 03/29/25 07:44 03/29/25 07:44 03/29/25 07:44
I&O
03/28/25 03/29/25 03/30/25
06:59 06:59 06:59
Intake Total 2700 / 2700 1560 / 1560
Output Total 2600 / 2600 2325 / 2325
Balance 100 / 100 -765 / -765
Physical Exam
-
General: Well Developed, Well Nourished, No Apparent Distress and Comfortable
HEENT: Normocephalic, Atraumatic, Moist Mucous Membranes, No Ptosis, PERRLA and Nose Appears Normal
Respiratory: Clear to Auscultation and Non Labored Respirations
Cardiac: Regular Rhythm and S1/S2
Breast: Deferred by me
GI: Soft and Tender (Left lower abdomen)
Genito-urinary: No Costovertebral Tender
Musculoskeletal: No Clubbing, No Cyanosis and No Edema
Skin: Warm
Neuro: Awake, Alert, Oriented, AO x 3 and No Motor Deficits
Psych: Calm
[2025-03-29 11:32] LABS: Glucose - Point of Care 89 mg/dl (70-99)
--- NOTE | 2025-03-29 12:43 | W.PN.UPDATE ---
Addendum entered and electronically signed by Loi Esteves MD 03/29/25 13:57:
Plan for OR tomorrow (under MAC/IV sedation) for catheter removal, cystoscopy, and removal of bilateral stents.
D/w Hospitalist - confirmed w/ pt.
Original Note:
Update Note
Progress Note Update
Plan for catheter removal + cystoscopy/bilateral stent removal in OR under sedation in next 24-48 hrs pending OR schedule availability.
Patient w/ notably poor tolerance of indwelling stents requiring significant analgesia - opioids, benzodiazepenes, anticholinergics.
D/w Hospitalist - will update primary team when OR timing confirmed.
[2025-03-29] MEDS: TORADOL 30 MG IV (15:02)
[2025-03-29 15:34] VITALS: BP 122/83
[2025-03-29 16:23] LABS: Glucose - Point of Care 137 mg/dl (70-99)
[2025-03-29] MEDS: ROXICODONE 5 MG PO (17:52)
[2025-03-29] MEDS: XARELTO PO (17:54)
[2025-03-29 21:30] LABS: Glucose - Point of Care 121 mg/dl (70-99)
[2025-03-29 23:09] VITALS: BP 137/80
[2025-03-29 23:28] LABS: Glucose - Point of Care 96 mg/dl (70-99)
[2025-03-30] VITALS (8 sets, daily range): BP systolic 113–136; BP diastolic 79–96
[2025-03-30] MEDS: TORADOL 30 MG IV ×2 (04:45→18:17)
[2025-03-30] MEDS: FLEXERIL 10 MG PO (04:46)
[2025-03-30 05:48] LABS: Glucose - Point of Care 147 mg/dl (70-99)
[2025-03-30 07:20] LABS: Hematocrit 41.8 % (39.0-52.0); Hemoglobin 15.2 g/dL (13.0-18.0); Mean Corp Hgb Conc. 36.4 g/dL (33.0-37.0); Mean Corpuscular Volume 85.7 fL (80.0-94.0); Platelet Count 166 10^3/uL (130-400); Red Cell Dist. Width 11.8 % (11.5-14.5)
[2025-03-30 08:01] LABS: Blood Urea Nitrogen 15 mg/dl (9-20); Calcium 8.9 mg/dl (8.4-10.2); Carbon Dioxide 26 mmol/L (22-30); Chloride 104 mmol/L (98-107); Estimated Creatinine Clearance 98 ml/min; Glucose 116 mg/dl (70-99); Potassium 4.6 mmol/L (3.5-5.1); Sodium 135 mmol/L (135-145); eGFR > 60.00
--- NOTE | 2025-03-30 08:15 | W.PN.URO.CBU ---
Today's Communication / Plan
-
- Continue NPO status
- To OR this afternoon (Dr. Morales) for catheter removal + cystoscopy + removal of bilateral stents
- Surgical consent signed (@OR front desk host)
- Xarelto held starting last night
Assessment / Plan
-
s/p bilateral ureteroscopy/laser lithotripsy/stent placement for renal stones
Gross hematuria potentiated by Xarelto
Post-op stent pain and bladder spasms
WBC WNL
H/H WNL
Cr WNL
CT imaging WNL (bilateral stents in place w/o hydronephrosis)
No objective findings to explain significant bladder/urethral pain other than poor stent tolerance and bladder spasms.
Diagnosis
-
Date of Service: March 30, 2025
-
Patient Diagnosis:
s/p bilateral ureteroscopy/laser lithotripsy/stent placement for renal stones
Xarelto AC
Post-op stent pain and bladder spasms
Subjective
-
Urine pyridium-stained but clear in catheter outflow.
Notes some improvement in colic and bladder spasms - still in pain.
Objective
-
Vital Signs
Temp Pulse Resp BP Pulse Ox
98.3 F 68 18 132/90 93
03/30/25 07:25 03/30/25 07:25 03/30/25 07:25 03/30/25 07:25 03/30/25 07:25
Intake and Output
03/29/25 03/30/25 03/31/25
06:59 06:59 06:59
Intake Total 1560 / 1560 1080 / 1080
Output Total 2325 / 2325 2150 / 2150
Balance -765 / -765 -1070 / -1070
Intake:
Oral fluids 1560 / 1560 1080 / 1080
Output:
Urine, Davenport 2325 / 2325 215 / 215
Other:
Number of unmeasured liquid
stools
Rectum 5
Laboratory Results
03/30/25 06:35
03/30/25 06:35
Physical Exam
-
General - well developed, well nourished, no acute distress
Abdomen - soft, non-tender, non-distended, no CVAT
- Davenport catheter w/ pyridium-stained urine, no hematuria or clots noted
Counseling
-
D/w patient.
D/w Hospitalist.
Care Review
Data Reviewed
Discussed with: Hospitalist and Nursing
CT Scan: Report Pers Reviewed and Image Pers Reviewed
Total Time Spent with Patient (in minutes): 25
[2025-03-30] MEDS: BENTYL 20 MG PO ×4 (08:53→23:00)
[2025-03-30] MEDS: DITROPAN 5 MG PO ×2 (08:53→19:42)
[2025-03-30] MEDS: FLOMAX 0.4 MG PO (08:53)
--- NOTE | 2025-03-30 10:53 | W.PN.HOSP.TC ---
Today's Communication/Plan
-
Discharge home today after stent removal.
Assessment / Plan
Assessment / Plan
Impression:
The patient is a 45-year-old male with a past medical history significant for Factor V Leiden (on Xarelto) and kidney stones, who had bilateral ureteral stents placed earlier on the day of admission. He presents to the emergency department with
worsening left-sided flank pain.
After the procedure, the patient experienced significant pain and reported feeling near syncopal while using the bathroom, but was still discharged home. Since discharge, his pain has progressively worsened. He reports lightheadedness and dizziness,
feeling as though he might pass out with any attempt to urinate. He also notes gross hematuria.
The patient states he has held Xarelto for the past few days in preparation for the procedure. He denies fever or chills. He continues to have persistent left-sided flank pain. He mentions that during a previous episode with stents, he removed them
himself due to severe discomfort.
Admitted to the hospital for pain control.
Monitor hemoglobin.
Hematuria improved
Patient supposed to be discharged and follow-up as outpatient but secondary to continue spasm and pain plan to have Davenport and stent removed in the hospital under sedation Friday 03/30
Assessment/plan:
Hematuria �history of kidney stone status post stent 03/24
Patient presented with hematuria/ flank pain post stent; ER discussed with Urology.
Urinary catheter placed in ED as recommended.
CT Abdomen/Pelvis Findings:
Left stent: proximal tip coiled in [id number] pole calyx; distal tip in bladder. No obstructive uropathy.
Right stent: proximal tip in renal pelvis; distal tip in bladder. No hydronephrosis.
Bilateral mild perinephric edema without collection or abscess.
Bilateral patchy pyelonephritis.
Tiny bilateral intrarenal calculi.
Plan:
Admitted to [facility].
No evidence of acute infection; monitor for fever.
Check blood and urine cultures; patient currently afebrile.
Pain control: IV Dilaudid, antiemetics, oxycodone PRN.
Hold Farxiga.
Continue IV normal saline.
Clear liquid diet---> advanced
Urology consulted.
Continue with bimodal pain medications
03/28
Patient still with significant pain.
Discontinue Dilaudid.
MiraLAX for constipation.
Added Flexeril
03/30
OR today for stent and Davenport removal
Type 2 Diabetes Mellitus
Home Meds:
Dapagliflozin (Farxiga) 10 mg PO daily � currently held.
Wegovy 2.4 mg SC weekly.
Plan:
Monitor blood glucose.
Hold Farxiga during hospitalization.
HBA1C 7.2
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
Home Meds:
Xarelto 20 mg PO daily
Plan:
resume Xarelto
Hyperlipidemia
Home Meds:
Atorvastatin 10 mg PO daily.
Plan:
Continue atorvastatin.
History of Migraine Headaches
pain control
Hyponatremia
Plan:
Monitor electrolytes.
Continue IV fluids.
Code Status: Full Code
DVT Prophylaxis: Xarelto
Diet: DM
Disposition: Discharge home today after stent removal.
Total time spent on today's encounter was 55 minutes which included time spent in counseling the patient/family regarding diagnosis and treatment plan as listed above, goals of care, and symptom management. Case was discussed with nursing staff,
specialists, and care coordinators/case management. All labs and imaging personally reviewed by me. Remainder the time spent in detailed review of previous records, lab data, imaging, and other medical provider documentation.
Part of this note was created using voice recognition system. Occasional wrong word or �sound alike� substitutions may have inadvertently occurred due to the inherent limitations of voice recognition software. If noted kindly bring it to my
attention for correction.
Anticipated Discharge: Today
Subjective/Interval History
-
Date of Service: March 30, 2025
Patient seen and examined at bedside, denies any chest pain or shortness of breath, improved abdominal pain, no nausea, no vomiting, no diarrhea or constipation.
Objective Data
-
Labs:
Laboratory Results
03/30/25
06:35
WBC 6.0
Hgb 15.2
Hct 41.8
Plt Count 166 D
Sodium 135
Potassium 4.6
Chloride 104
Carbon Dioxide 26
BUN 15
Creatinine 1.2
Glucose 116 H
Calcium 8.9
Vital Signs:
Vital Signs
Temp Pulse Resp BP Pulse Ox
98.3 F 68 18 132/90 93
03/30/25 07:25 03/30/25 07:25 03/30/25 07:25 03/30/25 07:25 03/30/25 07:25
I&O
03/29/25 03/30/25 03/31/25
06:59 06:59 06:59
Intake Total 1560 / 1560 1080 / 1080
Output Total 2325 / 2325 2150 / 2150
Balance -765 / -765 -1070 / -1070
Physical Exam
-
General: Well Developed, Well Nourished, No Apparent Distress and Comfortable
HEENT: Normocephalic, Atraumatic, Moist Mucous Membranes, No Ptosis, PERRLA and Nose Appears Normal
Respiratory: Clear to Auscultation and Non Labored Respirations
Cardiac: Regular Rhythm and S1/S2
Breast: Deferred by me
GI: Soft and Tender (Left lower abdomen)
Genito-urinary: No Costovertebral Tender
Musculoskeletal: No Clubbing, No Cyanosis and No Edema
Skin: Warm
Neuro: Awake, Alert, Oriented, AO x 3 and No Motor Deficits
Psych: Calm
[2025-03-30 12:03] LABS: Glucose - Point of Care 92 mg/dl (70-99)
--- NOTE | 2025-03-30 13:16 | VNURNOTE ---
Chart reviewed. Pt for OR today for cysto, stent and mendes removal. Called pt. He does not feel he will need VN after DC. He is aware to follow up w/Uro as outpt per DC instructions. Updated CM Michelle and Intake Jasmin.
--- NOTE | 2025-03-30 15:57 | W.DCSUMMARY ---
Addendum entered and electronically signed by Marco Todd MD 03/31/25 14:45:
Update-Date of Discharge: 03/31/25
Original Note:
Discharge Summary
Discharge Data
Date of Admission: 03/26/25
Date of Discharge: 03/30/25
Total time spent discharging patient (in min): 40
-
Pending Results: No
Hospital Course
Hospital course
The patient is a 45-year-old male with a past medical history significant for Factor V Leiden (on Xarelto) and kidney stones, who had bilateral ureteral stents placed earlier on the day of admission. He presents to the emergency department with
worsening left-sided flank pain.
After the procedure, the patient experienced significant pain and reported feeling near syncopal while using the bathroom, but was still discharged home. Since discharge, his pain has progressively worsened. He reports lightheadedness and dizziness,
feeling as though he might pass out with any attempt to urinate. He also notes gross hematuria.
The patient states he has held Xarelto for the past few days in preparation for the procedure. He denies fever or chills. He continues to have persistent left-sided flank pain. He mentions that during a previous episode with stents, he removed them
himself due to severe discomfort.
Admitted to the hospital for pain control.
Monitor hemoglobin.
Hematuria improved
Patient supposed to be discharged and follow-up as outpatient but secondary to continue spasm and pain plan to have Davenport and stent removed in the hospital under sedation Friday 03/30
During hospitalization patient was treated from the following
Hematuria �history of kidney stone status post stent 03/24
Patient presented with hematuria/ flank pain post stent; ER discussed with Urology.
Urinary catheter placed in ED as recommended.
CT Abdomen/Pelvis Findings:
Left stent: proximal tip coiled in [id number] pole calyx; distal tip in bladder. No obstructive uropathy.
Right stent: proximal tip in renal pelvis; distal tip in bladder. No hydronephrosis.
Bilateral mild perinephric edema without collection or abscess.
Bilateral patchy pyelonephritis.
Tiny bilateral intrarenal calculi.
Plan:
Admitted to [facility].
No evidence of acute infection; monitor for fever.
Check blood and urine cultures; patient currently afebrile.
Pain control: IV Dilaudid, antiemetics, oxycodone PRN.
Hold Farxiga.
Continue IV normal saline.
Clear liquid diet---> advanced
Urology consulted.
Continue with bimodal pain medications
03/28
Patient still with significant pain.Discontinue Dilaudid.
MiraLAX for constipation.
Added Flexeril
03/30
OR today for stent and Davenport removal
Type 2 Diabetes Mellitus
Home Meds:
Dapagliflozin (Farxiga) 10 mg PO daily � currently held.
Wegovy 2.4 mg SC weekly.
Plan:
Monitor blood glucose.
Hold Farxiga during hospitalization.
HBA1C 7.2
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
Home Meds:
Xarelto 20 mg PO daily
Plan:
resume Xarelto
Hyperlipidemia
Home Meds:
Atorvastatin 10 mg PO daily.
Plan:
Continue atorvastatin.
History of Migraine Headaches
pain control
Hyponatremia
Plan:
Monitor electrolytes.
Continue IV fluids.
Code Status: Full Code
DVT Prophylaxis: Xarelto
Diet: DM
Disposition: Discharge home today after stent removal.
Total time spent on today's encounter was 40 minutes which included time spent in counseling the patient/family regarding diagnosis and treatment plan as listed above, goals of care, and symptom management. Case was discussed with nursing staff,
specialists, and care coordinators/case management. All labs and imaging personally reviewed by me. Remainder the time spent in detailed review of previous records, lab data, imaging, and other medical provider documentation.
Anticipated Discharge: Today
Discharge Plan
-
Patient Disposition: Home (Routine Discharge)
Discharge Diagnosis/Procedures: post operative stent pain and spasm
Condition: Fair
Diet: No restrictions
Activity: No strenuous activity
Driving Restrictions: As prior to admission
Bathing Restrictions: OK to Shower
Wound Care: expect blood in urine
Stand Alone Forms: Return to Work
Referrals:
Td Restrepo MD [Active, Urology]
Referral Note: Please call office after discharge to schedule a cystoscopy + stent removal (office procedure) the week of 03/29.
Muna Macias MD [Family Provider, [facility]]
Prescriptions:
New
tamsulosin 0.4 mg capsule
0.4 mg PO DAILY Qty: 30 0RF
phenazopyridine [Pyridium] 200 mg tablet
200 mg PO BID Qty: 30 0RF
nitrofurantoin monohyd/m-cryst [Macrobid] 100 mg capsule
100 mg PO BID Qty: 14 0RF
tramadol 50 mg tablet
50 mg PO Q8H PRN (Reason: mild to moderate pain) Qty: 20 0RF
oxycodone-acetaminophen [Percocet] 5-325 mg tablet
1 tab PO Q8H PRN (Reason: severe pain) Qty: 14 0RF
Continued
Xarelto 20 MG tablet
20 mg PO DAILY
atorvastatin 10 MG tablet
10 mg PO DAILY
dapagliflozin propanediol [Farxiga] 5 MG tablet
10 mg PO DAILY
cyclobenzaprine 10 mg tablet
10 mg PO TIDPRN PRN (Reason: muscle spasm) Qty: 20 0RF
Rx Instructions:
Pt reports not taking anymore
Wegovy 2.4 mg/0.75 mL Pen Injector
2.4 mg SC QWEEK
Discharge Orders:
Discharge Patient (As Directed); Ordered 03/30/25
Ordered By: Ko Lim
Discharge Date and Time
Print Language: FRENCH
--- NOTE | 2025-03-30 16:09 | CM ---
Plan: Discharge to home; no needs
--- NOTE | 2025-03-30 16:49 | W.PN.UPDATE ---
Update Note
Progress Note Update
Davenport and b/l ureteral stents removed without difficulty under anesthesia sedation
Okay for discharge today from urology standpoint
[2025-03-30 17:15] LABS: Glucose - Point of Care 100 mg/dl (70-99)
[2025-03-30] MEDS: XARELTO PO (17:51)
[2025-03-30] MEDS: ZOFRAN 4 MG IV (17:56)
--- NOTE | 2025-03-30 18:02 | PTCARENOTE ---
Addendum entered by Kaye Mays RN 03/30/25 18:34:
Pt restless in bed, hunched over and moaning in pain post toradol administration. Dr. Lim notified and advised to wait [address] Lim ordered stat dilaudid and if pt takes then will stay overnight. Care ongoing.
Original Note:
Pt arrived to [facility] s/p cysto and b/l stent removal. Pt c/o 10/10 pain in right flank and nausea. Pt vomited and given zofran see MAR. DTV. Pt reordered toradol for pain control by Dr. Lim. Bed locked and in lowest position. Care ongoing.
[2025-03-30] MEDS: MIRALAX 17 GRAMS PO (19:41)
[2025-03-30] MEDS: DILAUDID 1 MG IV (19:42)
[2025-03-30 21:38] LABS: Glucose - Point of Care 125 mg/dl (70-99)
[2025-03-31] MEDS: ROXICODONE 5 MG PO ×2 (01:51→10:56)
[2025-03-31] MEDS: SENOKOT-S 1 TABLET PO ×2 (01:52→08:42)
[2025-03-31 03:10] VITALS: BP 130/81
[2025-03-31] MEDS: VALIUM INJECTION 2.5 MG IV (03:46)
--- NOTE | 2025-03-31 04:19 | PTCARENOTE ---
Patient c/o pain 8/10 at the right flank. Patient given IV dilaudid x1 per MAR with relief. Patient woke up overnight with complaints of pain at the same site, given PRN oxy 5mg with minimal relief, RN then gave PRN Valium with some relief.Patient
reassessed, in bed asleep. Patient education regarding PO pain meds and side effects reinforced. Patient endorsing constipation, patient given miralax and stool softener overnight. Patient resting in bed, activity oob encouraged as tolerated.
Safety precautions in place, call whatley within reach. Bed alarm on, patient instructed to call for assistance getting oob to the bathroom. Patient agreeable.
[2025-03-31 07:34] LABS: Hematocrit 42.7 % (39.0-52.0); Hemoglobin 14.9 g/dL (13.0-18.0); Mean Corp Hgb Conc. 34.9 g/dL (33.0-37.0); Mean Corpuscular Volume 86.8 fL (80.0-94.0); Platelet Count 174 10^3/uL (130-400); Red Cell Dist. Width 11.7 % (11.5-14.5)
[2025-03-31 07:57] VITALS: BP 118/84
[2025-03-31 08:02] LABS: Blood Urea Nitrogen 17 mg/dl (9-20); Calcium 9.0 mg/dl (8.4-10.2); Carbon Dioxide 25 mmol/L (22-30); Chloride 104 mmol/L (98-107); Estimated Creatinine Clearance 91 ml/min; Glucose 109 mg/dl (70-99); Potassium 4.8 mmol/L (3.5-5.1); Sodium 135 mmol/L (135-145); eGFR > 60.00
[2025-03-31] MEDS: BENTYL 20 MG PO (08:32)
[2025-03-31] MEDS: DITROPAN 5 MG PO (08:33)
[2025-03-31] MEDS: FLOMAX 0.4 MG PO (08:33)
[2025-03-31] MEDS: MIRALAX 17 GRAMS PO (08:44)
[2025-03-31 09:52] LABS: Glucose - Point of Care 149 mg/dl (70-99)
--- NOTE | 2025-03-31 10:21 | W.PN.HOSP.TC ---
Today's Communication/Plan
-
Discharge home
Outpatient urology follow-up
Assessment / Plan
Assessment / Plan
Impression:
The patient is a 45-year-old male with a past medical history significant for Factor V Leiden (on Xarelto) and kidney stones, who had bilateral ureteral stents placed earlier on the day of admission. He presents to the emergency department with
worsening left-sided flank pain.
After the procedure, the patient experienced significant pain and reported feeling near syncopal while using the bathroom, but was still discharged home. Since discharge, his pain has progressively worsened. He reports lightheadedness and dizziness,
feeling as though he might pass out with any attempt to urinate. He also notes gross hematuria.
The patient states he has held Xarelto for the past few days in preparation for the procedure. He denies fever or chills. He continues to have persistent left-sided flank pain. He mentions that during a previous episode with stents, he removed them
himself due to severe discomfort.
Admitted to the hospital for pain control.
Monitor hemoglobin.
Hematuria improved
Patient supposed to be discharged and follow-up as outpatient but secondary to continue spasm and pain plan to have Davenport and stent removed in the hospital under sedation Friday 03/30
Assessment/plan:
Hematuria �history of kidney stone status post stent 03/24
Patient presented with hematuria/ flank pain post stent; ER discussed with Urology.
Urinary catheter placed in ED as recommended.
CT Abdomen/Pelvis Findings:
Left stent: proximal tip coiled in [id number] pole calyx; distal tip in bladder. No obstructive uropathy.
Right stent: proximal tip in renal pelvis; distal tip in bladder. No hydronephrosis.
Bilateral mild perinephric edema without collection or abscess.
Bilateral patchy pyelonephritis.
Tiny bilateral intrarenal calculi.
Plan:
Admitted to [facility].
No evidence of acute infection; monitor for fever.
Check blood and urine cultures; patient currently afebrile.
Pain control: IV Dilaudid, antiemetics, oxycodone PRN.
Continue IV normal saline.
Clear liquid diet---> advanced
Urology consulted.
Continue with bimodal pain medications
03/28
Patient still with significant pain.
Discontinue Dilaudid.
MiraLAX for constipation.
Added Flexeril
03/30
OR today for stent and Davenport removal
03/31
Status post tandem Davenport catheter removal. Morning. Significant improvement in pain.
Type 2 Diabetes Mellitus
Home Meds:
Dapagliflozin (Farxiga) 10 mg PO daily � currently held.
Wegovy 2.4 mg SC weekly.
Plan:
Monitor blood glucose.
Hold Farxiga during hospitalization.
HBA1C 7.2
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
Home Meds:
Xarelto 20 mg PO daily
Plan:
resume Xarelto
Hyperlipidemia
Home Meds:
Atorvastatin 10 mg PO daily.
Plan:
Continue atorvastatin.
History of Migraine Headaches
pain control
Hyponatremia
Plan:
Monitor electrolytes.
Continue IV fluids.
Code Status: Full Code
DVT Prophylaxis: Xarelto
Diet: DM
Disposition: Discharge home today
Part of this note was created using voice recognition system. Occasional wrong word or �sound alike� substitutions may have inadvertently occurred due to the inherent limitations of voice recognition software. If noted kindly bring it to my
attention for correction.
Anticipated Discharge: Today
Subjective/Interval History
-
Date of Service: March 31, 2025
This morning patient stated of mild flank pain
Overall feeling significantly better
Objective Data
-
Labs:
Laboratory Results
03/31/25
06:48
WBC 9.1
Hgb 14.9
Hct 42.7
Plt Count 174
Sodium 135
Potassium 4.8
Chloride 104
Carbon Dioxide 25
BUN 17
Creatinine 1.3
Glucose 109 H
Calcium 9.0
Vital Signs:
Vital Signs
Temp Pulse Resp BP Pulse Ox
97.9 F 83 16 118/84 94
03/31/25 07:57 03/31/25 07:57 03/31/25 07:57 03/31/25 07:57 03/31/25 07:57
I&O
03/30/25 03/31/25 04/01/25
06:59 06:59 06:59
Intake Total 1080 / 1080 560 / 560
Output Total 2150 / 2150 1075 / 1075
Balance -1070 / -1070 -515 / -515
[2025-03-31 11:00] VITALS: BP 130/72
--- NOTE | 2025-03-31 12:01 | CM ---
Patient has been medically cleared for discharge to home with no additional skilled services. Patient arranged for transport home.
== END 2025-03-31 11:49 | disposition home or self-care (01) | DRG 699 ==
LOC: 2 SOUTH 09:23
PROVIDERS: Emergency Medicine; General Practice; Nurse Practitioner Family; Urology; ADMITTING PHYSICIAN Internal Medicine; ATTENDING PHYSICIAN Hospitalist; CONSULT PHYSICIAN Specialist; EMERGENCY PHYSICIAN Student in an Organized Health Care Education/Training Program; FAMILY PHYSICIAN Family Medicine
PROC: 0TP98DZ Removal of Intraluminal Device from Ureter, Via Natural or Artificial Opening Endoscopic (ICD-10-PCS; 2025-03-30)
DX: T83.83XA Hemorrhage due to genitourinary prosthetic devices, implants and grafts, initial encounter (principal); D68.51 Activated protein C resistance; E87.1 Hypo-osmolality and hyponatremia; Y73.2 Prosthetic and other implants, materials and accessory gastroenterology and urology devices associated with adverse incidents; Z87.442 Personal history of urinary calculi; R31.0 Gross hematuria; Z79.01 Long term (current) use of anticoagulants; E78.00 Pure hypercholesterolemia, unspecified; Z86.718 Personal history of other venous thrombosis and embolism; Z86.711 Personal history of pulmonary embolism; E66.9 Obesity, unspecified; Z68.30 Body mass index [BMI] 30.0-30.9, adult; I10 Essential (primary) hypertension; J45.909 Unspecified asthma, uncomplicated; Z79.4 Long term (current) use of insulin; Z79.84 Long term (current) use of oral hypoglycemic drugs; Z79.85 Long-term (current) use of injectable non-insulin antidiabetic drugs; Z87.891 Personal history of nicotine dependence; Z91.040 Latex allergy status
CPT/HCPCS: 74018; 74177; 76000; 80048; 80053; 81003; 81015; 82962; 83036; 85014; 85018; 85025; 85027; 87086; 93005; 99285; Q9967